=== PATIENT | female | born 1975 | race African-American/Black ===

== ENCOUNTER 2020-11-08 14:17 | Outpatient (REF) | payer MEDICAID, SELFPAY ==
--- NOTE | ~2020-11-08 | MM_ITS ---
EXAMINATION: MM SCREENING DIGITAL BREAST TOMOSYNTHESIS, BILATERAL CLINICAL INFORMATION: Screening. Asymptomatic. The lifetime risk of breast cancer based on the Tyrer-Cuzick Model is 5%. COMPARISON: Mammography: 11/03/2019, 10/13/2018, 05/24/2017 TECHNIQUE: Digital breast tomosynthesis is performed in both the craniocaudal and mediolateral oblique views along with computer-aided detection (CAD). Synthesized 2D images are generated from the tomosynthesis. FINDINGS: There are scattered areas of fibroglandular density (ACR BI-RADS breast composition Category b). There are no significant masses, abnormal calcifications, or other abnormalities. Parenchymal pattern is similar to prior studies. MM/MM tomosynthesis screening BI IMPRESSION: No mammographic evidence of malignancy. ASSESSMENT: BI-RADS 1: Negative RECOMMENDATION: Routine annual mammography screening. This patient's information was entered into a reminder system with a target due date for their next mammogram.
== END 2020-11-08 14:18 | disposition home or self-care (01) ==
LOC: HO.MAMMO 14:17
PROVIDERS: PCP Internal Medicine; Visit Provider Internal Medicine
DX: Z12.31 Encounter for screening mammogram for malignant neoplasm of breast (principal)
CPT/HCPCS: 77063; 77067

== ENCOUNTER 2021-11-30 12:51 | Outpatient (REF) | payer MEDICAID, SELFPAY ==
--- NOTE | ~2021-11-30 | MM_ITS ---
EXAMINATION: MM SCREENING DIGITAL BREAST TOMOSYNTHESIS, BILATERAL CLINICAL INFORMATION: Screening. Asymptomatic. The lifetime risk of breast cancer based on the Tyrer-Cuzick Model is 5%. COMPARISON: Mammography: 11/08/2020, 11/03/2019, 10/13/2018 TECHNIQUE: Digital breast tomosynthesis is performed in both the craniocaudal and mediolateral oblique views along with computer-aided detection (CAD). Synthesized 2D images are generated from the tomosynthesis. FINDINGS: There are scattered areas of fibroglandular density (ACR BI-RADS breast composition Category b). There are no significant masses, abnormal calcifications, or other abnormalities. Breast tissue composition borders on predominantly fatty. There are 2 small incidental intramammary nodes again seen posterior upper outer right breast. The axilla and skin contours are unremarkable. MM/MM tomosynthesis screening BI IMPRESSION: No mammographic evidence of malignancy. ASSESSMENT: BI-RADS 2: Benign RECOMMENDATION: Routine annual mammography screening. This patient's information was entered into a reminder system with a target due date for their next mammogram.
== END 2021-11-30 12:52 | disposition home or self-care (01) ==
LOC: HO.MAMMO 12:51
PROVIDERS: PCP Emergency Medicine; Visit Provider Internal Medicine
DX: Z12.31 Encounter for screening mammogram for malignant neoplasm of breast (principal)
CPT/HCPCS: 77063; 77067

== ENCOUNTER 2022-12-25 09:12 | Outpatient (REF) | payer MEDICAID, SELFPAY ==
--- NOTE | ~2022-12-25 | MM_ITS ---
EXAMINATION: MM SCREENING DIGITAL BREAST TOMOSYNTHESIS, BILATERAL CLINICAL INFORMATION: Screening. Asymptomatic. The lifetime risk of breast cancer based on the Tyrer-Cuzick Model is 7%. COMPARISON: Mammography: 11/30/2021, 11/08/2020, 11/03/2019 TECHNIQUE: Digital breast tomosynthesis is performed in both the craniocaudal and mediolateral oblique views along with computer-aided detection (CAD). Synthesized 2D images are generated from the tomosynthesis. FINDINGS: There are scattered areas of fibroglandular density (ACR BI-RADS breast composition Category b). There are no significant masses, abnormal calcifications, or other abnormalities. No architectural abnormality or developing density or significant change from prior studies. The axilla and skin contours are unremarkable. MM/MM tomosynthesis screening BI IMPRESSION: No mammographic evidence of malignancy. ASSESSMENT: BI-RADS 1: Negative RECOMMENDATION: Routine annual mammography screening. This patient's information was entered into a reminder system with a target due date for their next mammogram.
== END 2022-12-25 09:13 | disposition home or self-care (01) ==
LOC: HO.MAMMO 09:12
PROVIDERS: Visit Provider Internal Medicine
DX: Z12.31 Encounter for screening mammogram for malignant neoplasm of breast (principal)
CPT/HCPCS: 77063; 77067

== ENCOUNTER 2023-04-16 10:20 | Outpatient (REF) | payer MEDICAID, SELFPAY ==
[2023-04-16 11:18] LABS: MANUAL DIFF FLAG NO
[2023-04-16 11:30] LABS: Basophils Percent Auto 0.6 % (0-2); Eosinophils Absolute Auto 0.4 X10*3/uL (0.0-0.4); Eosinophils Percent Auto 6.6 % (0-4); Hemoglobin 13.2 g/dl (12.0-16.0); Imm Gran Abs Auto 0.03 X10*3/uL (0.00-0.03); Imm Gran Pct Auto 0.6 % (0.0-0.4); Lymphocytes Absolute Auto 2.3 X10*3/uL (1.2-4.9); Lymphocytes Percent Auto 43.1 % (20-40); Mean Corpuscular HGB Conc 32.2 g/dl (31.0-35.0); Mean Corpuscular Hemoglobin 28.3 pg (27.0-33.0); Mean Corpuscular Volume 87.8 fL (80.0-98.0); Mean Platelet Volume 9.8 fL (9.4-12.3); Monocytes Absolute Auto 0.4 X10*3/uL (0.1-1.2); Monocytes Percent Auto 6.6 % (2-11); Neutrophils Absolute Auto 2.3 x10*3/uL (2.0-8.3); Neutrophils Percent Auto 42.5 % (45-73); Platelet Count 191 X10*3/uL (160-400); Red Blood Count 4.67 X10*6/uL (4.20-5.50); Red Cell Distribution Width 12.4 % (11.0-16.0); White Blood Count 5.3 X10*3/uL (4.8-10.8)
[2023-04-16 11:51] LABS: Estimated Average Glucose 103 mg/dL; Hemoglobin A1c % 5.2 %
[2023-04-16 12:45] LABS: HBS Num1 23.74 mIU/mL (0-7.99); HBc Num1 0.12 S/CO (0.00-0.79); HBsAGNum1 0.45 S/CO (0.00-0.99); HIV AB/AG Nonreactive (Nonreactive); HIV Num 1 0.05 S/CO (0.00-0.99); Hepatitis B Core Antibody Nonreactive (Nonreactive); Hepatitis B Surface Antigen Negative (Negative); ~Hepatitis B Surface Antibody REACTIVE (Nonreactive)
[2023-04-16 12:46] LABS: ~HepC Num1 0.06 S/CO (0.00-0.79); ~Hepatitis C Antibody Nonreactive (Nonreactive)
[2023-04-16 12:54] LABS: Alanine Aminotransferase 13 U/L (0-31); Albumin Level 4.2 g/dL (3.5-5.0); Alkaline Phosphatase 50 U/L (39-117); Anion Gap 15 (12-20); Aspartate Amino Transferase 15 U/L (5-31); Bilirubin Total 0.5 mg/dL (0.0-1.0); Blood Urea Nitrogen 16 mg/dL (9-16); Calcium 9.6 mg/dL (8.4-10.2); Carbon Dioxide 25 mmol/L (22-29); Chloride 107 mmol/L (96-108); Cholesterol 191 mg/dL; Estimated Glomerular Filt Rate > 60; Free T4 (Free Thyroxine) 0.92 ng/dL (0.71-1.85); Glucose Random 87 mg/dL (60-115); HDL Cholesterol 42 mg/dL; LDL Cholesterol Calculated 128 mg/dl; Potassium 4.1 mmol/L (3.3-5.1); Sodium 143 mmol/L (135-145); T4 Thyroxine 8.2 ug/dL (4.5-12.0); Thyroid Stimulating Hormone 3.31 uIU/mL (0.32-4.0); Total Protein 7.6 g/dL (6.5-8.0); Triglycerides 107 mg/dL; Vitamin D 25-OH Total 32.2 ng/mL (>30)
[2023-04-16 13:13] LABS: Folate 14.9 ng/mL (> or = 4.0); Vitamin B12 1113 pg/mL (200-900)
[2023-04-16 15:15] LABS: CT PCR NOT DETECTED (Not Detect.); NG PCR NOT DETECTED (Not Detect.)
[2023-04-17 04:23] LABS: Syphilis Screen Nonreactive (Nonreactive)
== END 2023-04-16 10:21 | disposition home or self-care (01) ==
LOC: HO.HHCL 10:20
PROVIDERS: Visit Provider Student in an Organized Health Care Education/Training Program
DX: Z00.00 Encounter for general adult medical examination without abnormal findings (principal); Z11.4 Encounter for screening for human immunodeficiency virus [HIV]
CPT/HCPCS: 0353U; 80053; 80061; 82306; 82607; 82746; 83036; 84436; 84439; 84443; 85025; 86704; 86706; 86780; 86803; 87340; 87389

== ENCOUNTER 2023-06-26 19:25 | Outpatient (REF) | payer MEDICAID, SELFPAY ==
[2023-06-28 19:59] LABS: HPV mRNA E6/E7 rflx Not Detected (Not Detected)
== END 2023-06-26 19:26 | disposition home or self-care (01) ==
LOC: HO.HHCLNP 19:25
PROVIDERS: Visit Provider Advanced Practice Midwife
DX: Z12.4 Encounter for screening for malignant neoplasm of cervix (principal); Z11.51 Encounter for screening for human papillomavirus (HPV)
CPT/HCPCS: 87624; 88142

== ENCOUNTER 2024-02-07 15:51 | Outpatient (REF) | payer MEDICAID, SELFPAY ==
[2024-02-07 18:09] LABS: MANUAL DIFF FLAG NO
[2024-02-07 18:19] LABS: Basophils Absolute Auto 0.1 X10*3/uL (0.0-0.2); Basophils Percent Auto 0.7 % (0-2); Eosinophils Absolute Auto 0.4 X10*3/uL (0.0-0.4); Eosinophils Percent Auto 3.9 % (0-4); Hemoglobin 13.4 g/dl (12.0-16.0); Imm Gran Abs Auto 0.03 X10*3/uL (0.00-0.03); Imm Gran Pct Auto 0.3 % (0.0-0.4); Lymphocytes Absolute Auto 3.5 X10*3/uL (1.2-4.9); Lymphocytes Percent Auto 38.8 % (20-40); Mean Corpuscular HGB Conc 32.7 g/dl (31.0-35.0); Mean Corpuscular Hemoglobin 29.2 pg (27.0-33.0); Mean Corpuscular Volume 89.3 fL (80.0-98.0); Mean Platelet Volume 10.1 fL (9.4-12.3); Monocytes Absolute Auto 0.6 X10*3/uL (0.1-1.2); Monocytes Percent Auto 7.1 % (2-11); Neutrophils Absolute Auto 4.5 x10*3/uL (2.0-8.3); Neutrophils Percent Auto 49.2 % (45-73); Platelet Count 271 X10*3/uL (160-400); Red Blood Count 4.59 X10*6/uL (4.20-5.50); Red Cell Distribution Width 12.9 % (11.0-16.0)
[2024-02-07 18:37] LABS: Rheumatoid Factor < 13.0 IU/mL (<15.0)
[2024-02-07 18:38] LABS: C Reactive Protein < 0.10 mg/dL (< or = 0.50)
[2024-02-07 18:55] LABS: Free T4 (Free Thyroxine) 0.92 ng/dL (0.71-1.85); Thyroid Stimulating Hormone 5.05 uIU/mL (0.32-4.0)
[2024-02-07 19:03] LABS: Folate 11.4 ng/mL (> or = 4.0); Vitamin B12 710 pg/mL (200-900)
[2024-02-07 19:30] LABS: Erythrocyte Sedimentation Rate 9 MM/HR (0-20)
[2024-02-08 04:39] LABS: Syphilis Screen Nonreactive (Nonreactive)
[2024-02-10 14:22] LABS: Anti Nuclear Antibody Screen NEGATIVE (NEGATIVE)
[2024-02-11 18:42] LABS: Cyclic Citrullinated Peptide <16 UNITS
== END 2024-02-07 15:52 | disposition home or self-care (01) ==
LOC: HO.HHCL 15:51
PROVIDERS: Visit Provider Student in an Organized Health Care Education/Training Program
DX: R41.3 Other amnesia (principal); M25.50 Pain in unspecified joint
CPT/HCPCS: 36415; 82607; 82746; 84439; 84443; 85025; 85652; 86038; 86140; 86200; 86431; 86780

== ENCOUNTER 2024-02-26 15:26 | Outpatient (REF) | payer MEDICAID, SELFPAY | END 2024-02-26 15:27 | disposition home or self-care (01) | LOC: HO.MAMMO 15:26 | PROVIDERS: PCP Student in an Organized Health Care Education/Training Program; Visit Provider Student in an Organized Health Care Education/Training Program | DX: Z12.31 Encounter for screening mammogram for malignant neoplasm of breast (principal) | CPT/HCPCS: 77063; 77067 ==

== ENCOUNTER → 2024-02-26 15:45 | Outpatient (BNV) | payer MEDICAID, SELFPAY | PROVIDERS: PCP Student in an Organized Health Care Education/Training Program; Visit Provider Radiology Diagnostic Radiology | DX: Z12.31 Encounter for screening mammogram for malignant neoplasm of breast (principal) | CPT/HCPCS: 77063; 77067 ==

== ENCOUNTER 2025-01-20 15:10 | Outpatient (REF) | payer MEDICAID, SELFPAY ==
--- OUTSIDE RECORDS SUMMARY | 2025-01-20 16:08 | XMS_ITS | Encounter Summary ---
Author Organization [employer] Address [address] [place] [address] [place] [address] Care Team Providers Care Regulatory Submissions Associate Name Role Phone Molly Narayan MD Primary Care Pro vider Reason for Visit * Reason Comments Med Refill Encounter Details Date Type Department Care Team (Late st Contact Info) Description 09/21/2023 Refill [facility] [address] [place], [place] [phone] Molly Narayan MD [address] [place] [address] Social History Tobacco Use Types Packs/Day Years Used Date Smoking Tobacco: Never Passive Smoke Exposure: Never Smokeless Tobacco: Never Alcohol Use Standard Drinks/Week Comments Not Currently 0 (1 standard drink = 0.6 oz pur e alcohol) Depression Answer Date Recorded Patient Health Questionnaire-9 Score 12 04/10/2023 Housing Stability Answer Date Recorded What is your housing situation today? I have amybeatris tirado 07/01/[address] you li ve. Do you have problems with any of the following? None of the above 07/01/2023 Food Insecurity Answer Date Recorded Within the past 12 months, y ou worried that your food would run out before you got money to buy more: Never True 07/01/2023 Within the past 12 months,th e food you bought just didn't last and you didn't have enough money to get more: Never True Transportation Answer Date Recorded In the past 12 months, has l ack of transportation kept you from medical appts, meetings, work or from getting things needed for daily living? Yes, it has kept me from medical appointments or getting medications. 06/25/2023 Utilities Answer Date Recorded In the past 12 months, has t he electric, gas, oil or water company threatened to shut off services in your home? No 07/01/2023 Depression Answer Date Recorded Patient Health Questionnaire-2 Score 5 07/30/2023 Comments No Sex and Gender Information Value Date Recorded Sex Assigned at Female 07/16/2022 10:14 AM EDT Legal Sex Female 10:14 AM EDT Gender Identity Female 07/16/2022 10:14 AM EDT Sexual Orientation Straight 04/10/2023 12 :09 PM EDT documented as of this encounter Plan of Treatment Upcoming Encounters Date Type Department Care Team (Late st Contact Info) Description 03/25/2025 2:00 PM EDT Nurse Only [facility] [address] [place] [phone] 03/29/2025 1:00 PM EDT Office Visit [facility] [address] [place] [phone] Molly Narayan MD [address] [place] [phone] documented as of this encounter Visit Diagnoses Not on filedocumented in this encounter Additional Health Concerns Assessment Noted Time PHQ-9 Depression Total Score: 12 023 11:43 AM EDT documented as of this encounter Care Teams Regulatory Submissions Associate Relationship Specialty Start Date End Date Molly Narayan MD [address] [place] [phone] PCP - General Internal Medicine 01/02/23 documented as of this encounter
--- OUTSIDE RECORDS SUMMARY | 2025-01-20 16:08 | XMS_ITS | Clinical Summary ---
Author Organization [facility] Address [address] [place] [address] Care Team Providers Care Strategy Lead Name Role Phone Unavailable Primary Care Provider Unavailabl e Source Comments PLEASE NOTE, if this patient is a minor, it may be UNLAWFUL to discuss sensitive information that is contained in these records (such as FAMILY PLANNING, MENTAL HEALTH or SUBSTANCE ABUSE) with the minor patient's parent or other person without the patient's specific authorization.[facility] Medications FLUoxetine (PROZAC) 20 mg tablet Take 20 mg by mouth every morning Active DULoxetine (CYMBALTA) [address] capsule Take 20 mg by mouth once daily 07/13/2024 Active cloNIDine (CATAPRES) 0.1 mg tablet Take 0.1 mg by mouth nightly at bedtime Active hydrOXYzine HCL (ATARAX) 10 mg tablet Take 10 mg by mouth 3 (three) times daily as needed for anxiety Active levothyroxine 25 mcg tablet Take 25 mcg by mouth once daily 06/23/2024 Active Active Problems Problem Noted Date Diagnosed Date Atypical chest pain 07/04/2024 Helicobacter pylori (H. pylori) infection 2023 Overview (08/12/2024): Urea breath test on 01/20/24 at [facility] is POS. Rx initially with tetracycline + Flagyl (GI office)--> Diarrhea/vulvovaginitis on 01/27/24, then started on Amox/clarithromycin Memory loss 11/12/2023 Moderate episode of recurren t major depressive disorder ([facility]) 07/26/2023 Assessment & Plan (08/12/2024 7:19 AM EST): Pt unsure if she needs refills. PCP appt- 09/04/24? Pt declines f/u visit for next week, stating she prefers seeing a provider in person [significant communication barriers- cannot connect via video, welder tool and die, telephone issues]. Pt has a therapist, will f/u. Recommend neurology referral to assess pt c/o short term memory impairment. Venous insufficiency of both lower extremities 1 Lower extremity pain 04/10/2023 Liver cyst 04/10/2023 Herpes labialis 04/10/2023 Chronic lower back pain 04/10/2023 Hypothyroidism 12/28/2022 Neuropathic pain 09/07/2022 Gastroesophageal reflux disease 09/17/2017 Panic attack 09/02/2014 Overview (08/12/2024): Panic attack Anxiety 02/03/2013 Overview (08/12/2024): Anxiety Assessment & Plan (08/12/2024 7:19 AM EST): No med changes- pt unsure what she is taking, could not provide information on why she is on prozac and cymbalta together- was this a cross taper? Social History Tobacco Use Types Packs/Day Years Used Date Smoking Tobacco: Never Smokeless Tobacco: Never Tobacco Cessation:Counseling Given: Not Answered Alcohol Use Standard Drinks/Week Comments Never 0 (1 standard drink = 0.6 oz pur e alcohol) Social Connections Answer Date Recorded Connectedness 0 07/13/2024 Financial Resource Strain Answer Date R ecorded Financial Resource Strain 0 2023 Stress Answer Date Recorded Stress 0 07/13/2024 Physical Activity Answer Date Recorded Physical Activity 0 07/13/2024 Food Insecurity Answer Date Recorded Food 0 07/13/2024 Transportation Needs Answer Date Record ed Transportation 0 07/13/2024 Housing Stability Answer Date Recorded Housing 0 07/13/2024 Safety and Environment Answer Date Arslan rded Safety 0 07/13/2024 Utilities Answer Date Recorded Utilities 0 07/13/2024 Employment Answer Date Recorded Stress 0 07/13/2024 Comments Unknown Sex and Gender Information Value Date Recorded Sex Assigned at Female 07/13/2024 7:14 AM PDT Legal Sex Female 7:14 AM PDT Gender Identity Female 07/13/2024 7:14 AM PDT Sexual Orientation Not on file Plan of Treatment Health Maintenance Due Date Last Done Comments Anxiety Screening 1973 Depression Monitoring 1973 HPV Screening 1973 Hepatitis C Screening 1973 Lipid Screening 1973 Pap + HPV 1973 TSH Monitoring 1973 HIV Screening 1988 Hypertension Screening (#1) 12/31/1991 Cervical Cancer Screening 1994 Pap Smear 1994 Breast Cancer Screening (Mammogram) 2013 CT Colonography 2018 Colonoscopy 2018 Colorectal Cancer Screening 2018 FIT/gFOBT 2018 Fecal DNA 2018 Flexible Sigmoidoscopy 2018 Imm-Zoster, Recombinant (1 of 2) 12/31/2023 Gce-ANRRY-34 ( season) 2024 04/10/2023, 07/19/2022, 02/10/2021 Imm-Influenza (#1) 2024 07/26/2023, 1 10/27/2013, 11/17/2009 Alcohol and Drug Screen 09/16/2024 Tobacco Screening 08/11/2025 08/11/2024 Diabetes Screening 04/16/2026 04/16/2023, 0 11/16/2021, 08/09/2020 Imm-DTaP/Tdap/Td (2 - Td or Tdap) 04/10/2033 023, 11/17/2009 Imm-Hepatitis B Completed 11/17/2009, 0503/2009, 12/22/2008 Cervical Ablation/Cold-Knife Conization Discontinued Cervical Cryotherapy Discontinued Colposcopy Discontinued Endometrial Biopsy Discontinued Excision/Leep Discontinued HPV Genotyping Discontinued Vaginal Pap Discontinued Vulvoscopy Discontinued Insurance [place] [facility] [place]
--- OUTSIDE RECORDS SUMMARY | 2025-01-20 16:08 | XMS_ITS | Encounter Summary ---
Author Organization [employer] Address [address] [place] [address] 7 [place] [address] Care Team Providers Care Fluorescent Lighting Model Maker Name Role Phone Hilton Al TRENT Primary Care Provider Unavail Molly Enrique MD Primary Care Pro vider Reason for Visit * Reason Comments Med Refill Encounter Details Date Type Department Care Team ([facility] Contact Info) Description 12/28/2022 Refill [facility] [address] [place] [address] [phone] Name, MD Enrico [address] [place] [phone] Subclinical hypothyroidism Social History Tobacco Use Types Packs/Day Years Used Date Smoking Tobacco: Never Passive Smoke Exposure: Never Smokeless Tobacco: Never Comments Unknown Sex and Gender Information Value Date Recorded Sex Assigned at Female 07/16/2022 10:14 AM EDT Legal Sex Female 10:14 AM EDT Gender Identity Female 07/16/2022 10:14 AM EDT Sexual Orientation Straight 04/10/2023 12 :09 PM EDT COVID-19 Exposure Response Date Recorded In the last 10 days, have yo u been in contact with someone who was confirmed or suspected to have Coronavirus/COVID-19? No / Unsure 12/28/2022 2:46 PM EDT documented as of this encounter Plan of Treatment Upcoming Encounters Date Type Department Care Team (Late Contact Info) Description 03/25/2025 2:00 PM EDT Nurse Only [facility] [address] [place] [address] [phone] 03/29/2025 1:00 PM EDT Office Visit [facility] [address] [place] [address] [phone] Molly Narayan MD [address] [place], [place] [phone] documented as of this encounter Visit Diagnoses Diagnosis Subclinical hypothyroidism Other specified acquired hypothyroidism documented in this encounter Care Teams Fluorescent Lighting Model Maker Relationship Specialty Start Date End Date Al Canela AGNP PCP - General Family Medicine 09/14/22 01/01/23 Molly Narayan MD [address] [place], [place] [phone] PCP - General Internal Medicine 01/02/23 documented as of this encounter
--- OUTSIDE RECORDS SUMMARY | 2025-01-20 16:08 | XMS_ITS | Encounter Summary ---
Author Organization [employer] Address [address] [facility] 7t [place] [address] Care Team Providers Care Computer Artist Name Role Phone Al Canela Primary Care Provider Unavail able Molly Narayan MD Primary Care Pro vider Reason for Visit * Reason Onset Date Comments triage 10/05/2022 Encounter Details Date Type Department Care Team ([facility] st Contact Info) Description 10/05/2022 Telephone [facility] [address] [place], [place] [phone] Al Canela AGNP triage Social History Tobacco Use Types Packs/Day Years Used Date Smoking Tobacco: Never Assessed Comments Unknown Sex and Gender Information Value Date Recorded Sex Assigned at Female 07/16/2022 10:14 AM EDT Legal Sex Female 10:14 AM EDT Gender Identity Female 07/16/2022 10:14 AM EDT Sexual Orientation Straight 04/10/2023 12 :09 PM EDT documented as of this encounter Miscellaneous Notes * Telephone Encounter - Barbra Contreras RN - 10/05/2022 4:58 PM EST Attempted to contact Pt with [employer] Cadd Operator ID [id number], left message to call [facility] * Telephone Encounter - Ibis Pederson Hansen - 10/05/2022 4:29 PM EST Symptoms: Body Aches, Neck Pain - Not From Injury Outcome: Schedule an urgent appointment (within 4 hours) or talk to a nurse or provider soon Reason: Getting worse Tc from pt requesting an appt, pt states while she was sleeping she felt a very strong pain throughout her whole body, she also states pain come and goes and her body start to crack. Pt states she drank some meds. The caller accepted this outcome Please contact pt at [phone] Maldivian Speaker. documented in this encounter Plan of Treatment Upcoming Encounters Date Type Department Care Team (Late st Contact Info) Description 03/25/2025 2:00 PM EDT Nurse Only [address] [address] 03/29/2025 1:00 PM EDT Office Visit [address] [phone] Molly Narayan MD [address] [place] [phone] documented as of this encounter Visit Diagnoses Not on filedocumented in this encounter Care Teams Computer Artist Relationship Specialty Start Date End Date Al Canela AGNP PCP - General Family Medicine 09/14/22 01/01/23 Molly Narayan MD [address] [place] [address] [phone] PCP - General Internal Medicine 01/02/23 documented as of this encounter
--- OUTSIDE RECORDS SUMMARY | 2025-01-20 16:08 | XMS_ITS | Encounter Summary ---
Author Organization [employer] Address [address] [place] [address] [place] [address] Care Team Providers Care Clocksmith Name Role Phone Molly Narayan MD Primary Care Pro vider Reason for Visit * Reason Comments Med Refill Encounter Details Date Type Department Care Team (Late st Contact Info) Description 09/01/2023 Refill [facility] [address] [place], [place] [phone] Molly Narayan MD [address] [place] [address] Social History Tobacco Use Types Packs/Day Years [...] Description 03/25/2025 2:00 PM EDT Nurse Only [facility] [address] [place] [phone] 03/29/2025 1:00 PM EDT Office Visit [facility] [address] [place] [phone] Molly Narayan MD [address] [place] [phone] documented as of this encounter Visit Diagnoses Not on filedocumented in this encounter Additional Health Concerns Assessment Noted Time PHQ-9 Depression Total Score: 12 023 11:43 AM EDT documented as of this encounter Care Teams Clocksmith Relationship Specialty Start Date End Date Molly Narayan MD [address] [place] [phone] PCP - General Internal Medicine 01/02/23 documented as of this encounter
--- OUTSIDE RECORDS SUMMARY | 2025-01-20 16:08 | XMS_ITS | Encounter Summary ---
Author Organization [employer] Address [address] [place] [address] [place] [address] Care Team Providers Care Gasoline Dragline Operator Name Role Phone Molly Narayan MD Primary Care Pro vider Reason for Visit * Reason Comments Med Refill Encounter Details Date Type Department Care Team ([facility] st Contact Info) Description 07/03/2023 Refill [facility] [address] [place], [place] [phone] Molly Narayan MD [address] [place] [address] Social History Tobacco Use Types Packs/Day Years [...] Answer Date Recorded Patient Health Questionnaire-2 Score 2 04/10/2023 Comments No Sex and Gender Information Value [...] Description 03/25/2025 2:00 PM EDT Nurse Only [facility] [address] [place] [phone] 03/29/2025 1:00 PM EDT Office Visit [facility] [address] [place] [phone] Molly Narayan MD [address] [place] [address] documented as of this encounter Visit Diagnoses Not on filedocumented in this encounter Additional Health Concerns Assessment Noted Time PHQ-9 Depression Total Score: 12 023 11:43 AM EDT documented as of this encounter Care Teams Gasoline Dragline Operator Relationship Specialty Start Date End Date Molly Narayan MD [address] [place] [phone] PCP - General Internal Medicine 01/02/23 documented as of this encounter
--- OUTSIDE RECORDS SUMMARY | 2025-01-20 16:08 | XMS_ITS | Encounter Summary ---
Author Organization [employer] Address [address] [facility] 7t [place] [address] Care Team Providers Care Manager Legal Name Role Phone Molly Narayan MD Primary Care Pro vider Encounter Details Date Type Department Care Team (Latest Contact Info) Description 01/19/2025 Travel Social History Tobacco Use Types Packs/Day Years Used Date Smoking Tobacco: Never Passive Smoke Exposure: Never Smokeless Tobacco: Never Alcohol Use Standard Drinks/Week Comments Not Currently 0 (1 standard drink = 0.6 oz pur e alcohol) Depression Answer Date Recorded Patient Health Questionnaire-9 Score 16 07/03/2024 Patient Health Questionnaire-9 Score 16 07/03/2024 Last PHQ-9: Questionnaire Data Not on file 1 Housing Stability Answer Date Recorded What is your housing situation today? I have amy tirado 07/03/[address] you li ve. Do you have problems with any of the following? Pests such as bugs, ants, or mice;Mold 07/03/2024 Food Insecurity Answer Date Recorded Within the past 12 months, y ou worried that your food would run out before you got money to buy more: Sometimes True 2023 Within the past 12 months,th e food you bought just didn't last and you didn't have enough money to get more: Sometimes True 07/03/2024 Transportation Answer Date Recorded In the past 12 months, has l ack of transportation kept you from medical appts, meetings, work or from getting things needed for daily living? No 06/19/2024 Utilities Answer Date Recorded In the past 12 months, has t he electric, gas, oil or water company threatened to shut off services in your home? No 06/19/2024 Depression Answer Date Recorded Patient Health Questionnaire-2 Score 2 07/03/2024 Internet Access Answer Date Recorded Internet Access Q1 Yes 06/19/2024 Internet Access Q2 Not on file 06/19/2024 Comments No Sex and Gender Information Value [...] Description 03/25/2025 2:00 PM EDT Nurse Only [facility] [address] [place] [phone] 03/29/2025 1:00 PM EDT Office Visit [facility] [address] [place] [phone] Molly Narayan MD [address] [place] [address] documented as of this encounter Visit Diagnoses Not on filedocumented in this encounter Additional Health Concerns Assessment Noted Time PHQ-9 Depression Total Score: 16 024 11:50 AM EDT documented as of this encounter Care Teams Manager Legal Relationship Specialty Start Date End Date Mloly Narayan MD [address] [place] [phone] PCP - General Internal Medicine 01/02/23 documented as of this encounter
--- OUTSIDE RECORDS SUMMARY | 2025-01-20 16:08 | XMS_ITS | Encounter Summary ---
Author Organization [employer] Address [address] [place] [address] Care Team Providers Care Lieutenant Ballistics Name Role Phone Molly Narayan MD Primary Care Pro vider Reason for Visit * Reason Onset Date Comments chartprep 01/15/2025 Encounter Details Date Type Department Care Team ([facility] st Contact Info) Description 01/15/2025 Telephone [facility] [address] [place], [place] [phone] Molly Narayan MD [address] [place] [address] chartprep Social History Tobacco Use Types Packs/Day Years [...] housing situation today? I have amybeatris tirado 07/03/[address] you [...] encounter Miscellaneous Notes * Telephone Encounter - Dannielle Alcaraz MA - 01/15/2025 9:31 AM EDT ..Chart Prep Labs: not done Images: not applicable Vaccines due: Covid Due, Hep A Due, Flu Due, and Shingles in pharmacy Due Referrals: Not Applicable Screenings: Colonoscopy Overdue care gaps: Sbirt, Disability , and Oral Health documented in this encounter Plan of Treatment Upcoming Encounters Date Type Department Care Team (Late st Contact Info) Description 03/25/2025 2:00 PM EDT Nurse Only [facility] [address] [place] [phone] 03/29/2025 1:00 PM EDT Office Visit [facility] [address] [place] [phone] Molly Narayan MD [address] [place] [phone] documented as of this encounter Visit Diagnoses Not on filedocumented in this encounter Additional Health Concerns Assessment Noted Time PHQ-9 Depression Total Score: 16 024 11:50 AM EDT documented as of this encounter Care Teams Lieutenant Ballistics Relationship Specialty Start Date End Date Molly Narayan MD [address] [place] [phone] PCP - General Internal Medicine 01/02/23 documented as of this encounter
--- OUTSIDE RECORDS SUMMARY | 2025-01-20 16:08 | XMS_ITS | Encounter Summary ---
Author Organization [employer] Address [address] [place] [address] [place] [address] Care Team Providers Care Hot Wound Spring Production Supervisor Name Role Phone Molly Narayan MD Primary Care Pro vider Reason for Visit * Reason Comments Med Refill Encounter Details Date Type Department Care Team (Late st Contact Info) Description 09/23/2023 Refill [facility] [address] [place], [place] [phone] Molly Narayan MD [address] [place] [phone] Social History Tobacco Use Types Packs/Day Years [...] Description 03/25/2025 2:00 PM EDT Nurse Only [facility] [address] [place] [id number] 03/29/2025 1:00 PM EDT Office Visit [facility] [address] [place] [phone] Molly Narayan MD [address] [place] [phone] documented as of this encounter Visit Diagnoses Not on filedocumented in this encounter Additional Health Concerns Assessment Noted Time PHQ-9 Depression Total Score: 12 023 11:43 AM EDT documented as of this encounter Care Teams Hot Wound Spring Production Supervisor Relationship Specialty Start Date End Date Molly Narayan MD [address] [place] [id number] PCP - General Internal Medicine 01/02/23 documented as of this encounter
--- OUTSIDE RECORDS SUMMARY | 2025-01-20 16:08 | XMS_ITS | Encounter Summary ---
Author Organization [employer] Address [address] [facility] [address] [place] [address] Care Team Providers Care Compliance Lead Name Role Phone Molly Narayan MD Primary Care Pro vider Reason for Visit * Reason Onset Date Comments DME waiting for signature 07/06/2024 Encounter Details Date Type Department Care Team ([facility] st Contact Info) Description 07/06/2024 Telephone [facility] [address] [place], [place] [phone] Alea Jarquin MA DME waiting for signature Social History Tobacco Use Types Packs/Day Years [...] encounter Miscellaneous Notes * Telephone Encounter - Briseida Mcghee - 01/20/2025 3:18 PM EDT RX for Brace generated and sent to PCP for signature via [employer]. Once signed, will fax to POS andsent to scan. * Telephone Encounter - Summer Hernandez RN - 01/19/2025 2:13 PM EDT Spoke to PCP in office who stated that the pt doesn't yet have right wrist brace even though DME order placed 07/06/2024. Per note below, was sent via [employer]. triage assistant checked on status of wrist brace online however unable to find record. Will ask DME specialists for assistance infinding record or re submitting as appropriate. * Telephone Encounter - Alea Jarquin MA - 07/06/2024 12:55 PM EDT DME -Glove Examiner made order in [employer] and awaiting signature by . * Telephone Encounter - Alea Jarquin MA - 07/06/2024 12:55 PM EDT ----- Message from Nurse Marcelle Gomez sent at 07/03/2024 11:24 AM EDT ----- ----- Message ----- From: Molly Yost MD Sent: 07/03/2024 11:22 AM EDT To: [facility] Team Nurses Please can you help pt getting wrist brace of right hand for CTS thanks documented in this encounter Plan of Treatment Upcoming Encounters Date Type Department Care Team (Late st Contact Info) Description 03/25/2025 2:00 PM EDT Nurse Only [address] [phone] 03/29/2025 1:00 PM EDT Office Visit [address] [phone] Molly Narayan MD [address] [place] [phone] documented as of this encounter Visit Diagnoses Not on filedocumented in this encounter Additional Health Concerns Assessment Noted Time PHQ-9 Depression Total Score: 16 024 11:50 AM EDT documented as of this encounter Care Teams Compliance Lead Relationship Specialty Start Date End Date Molly Narayan MD [address] [place] [id number] PCP - General Internal Medicine 01/02/23 documented as of this encounter
--- OUTSIDE RECORDS SUMMARY | 2025-01-20 16:08 | XMS_ITS | Clinical Summary ---
Author Organization [employer] Address [address] [facility] [address] [place] [address] Care Team Providers Care Food Or Baggage Handling Rampman Name Role Phone Molly Narayan MD Primary Care Pro vider Allergies No known active allergies Medications * This document contains information received from the source organization and may not represent a complete record from that organization. hydrOXYzine HCl (Atarax) 10 MG tablet TAKE 1 TABLET BY MOUTH EVERY 8 HOURS IF NEEDED FOR ITCHING OR ANXIETY. 30 tablet 3 02/11/20 24 Active cloNIDine (Catapres) 0.1 MG tabletIndications: Anxiety TAKE 1 TABLET BY MOUTH EVERYDAY AT BEDTIME 90 tablet 03/27/20 24 Active valACYclovir (Valtrex) 500 MG tablet TAKE 1 TABLET BY MOUTH 2 TIMES DAILY FOR 3 DAYS 6 tablet 1 05/20/20 24 Active levothyroxine (Synthroid) 25 MCG tabletIndications: Subclinical hypothyroidism Take 1 tablet (25 mcg) by mouth before breakfast. 90 tablet 1 06/23/20 24 025 Active DULoxetine (Cymbalta) [address] capsule TAKE 1 CAPSULE BY MOUTH EVERY DAY DO NOT CRUSH OR CHEW 30 capsule 1 10/12/19 25 Active FLUoxetine (PROzac) 20 MG tablet TAKE 1 TABLET BY MOUTH EVERY DAY IN THE MORNING 90 tablet 10/26/19 25 Active saccharomyces boulardii (Florastor) 250 MG capsule Take 250 mg by mouth 2 times daily. 025 Discontinu ed(Other) famotidine (Pepcid) 20 MG tablet TAKE 1 TABLET BY MOUTH TWICE A DAY 180 tablet 07/30/20 24 025 Discontinu ed(Other) zoster vaccine-recombinan t adjuvanted (Shingrix) 50 MCG/0.5ML vaccine Inject 0.5 mL (50 mcg) into the muscle 1 (one) time for 1 dose. To start series 0.5 mL 01/20/20 25 025 Active Problems Problem Noted Date Diagnosed Date Swallowing problem 01/19/2025 Facial swelling 01/19/2025 Atypical chest pain 07/04/2024 Helicobacter pylori (H. pylori) infection 2023 Overview (01/27/2024): Urea breath test on 01/20/24 at [facility] is POS. Rx initially with tetracycline + Flagyl (GI office)--> Diarrhea/vulvovaginitis on 01/27/24, then started on Amox/clarithromycin Memory loss 11/12/2023 CTS (carpal tunnel syndrome) 11/12/2023 Moderate episode of recurrent major depressive d isorder 07/26/2023 Assessment & Plan (07/30/2023 3:20 PM EST): Patient with symptoms of anxiety and depression. Reason for visit was to assess symptoms, provide intervention and offer referral. History of depression, family problems and sense of isolation are exacerbating symptoms. No risk for SI, nor self-harm. Provided psychoeducation around anxiety and ways to control symptoms by practicing mechanisms and self-care. Recommended to continue with services with [facility] at [facility] for individual therapy. Discussed adding patient to wait list within the health center. At this time Cindy Lynn meets criteria for Visit Diagnoses: Problem List Items Addressed This Visit Other Anxiety Moderate episode of recurrent major depressive disorder (CMS/HCC) Family problems Patient ready to address current needs Yes Strengths include readiness to take control and engage in services PLAN: 1. Follow up with [facility]: Recommended for follow-up: as needed 2. Patient goal is to maintain a stable mental health and practice self-care 3. Behavioral Recommendations a. Continue to attend individual therapy sessions with BHN b. Utilize coping mechanisms to decrease symptoms c. Be added to wait list for psychopharmacology at [facility] Family problems 07/26/2023 Assessment & Plan (07/30/2023 3:20 PM EST): Patient with symptoms of anxiety and depression. Reason for visit was to assess symptoms, provide intervention and offer referral. History of depression, family problems and sense of isolation are exacerbating symptoms. No risk for SI, nor self-harm. Provided psychoeducation around anxiety and ways to control symptoms by practicing mechanisms and self-care. Recommended to continue with services with [facility]N at [facility] for individual therapy. Discussed adding patient to wait list within the health center. At this time Cindy Lynn meets criteria for Visit Diagnoses: Problem List Items Addressed This Visit Other Anxiety Moderate episode of recurrent major depressive disorder (CMS/HCC) Family problems Patient ready to address current needs Yes Strengths include readiness to take control and engage in services PLAN: 1. Follow up with [facility]: Recommended for follow-up: as needed 2. Patient goal is to maintain a stable mental health and practice self-care 3. Behavioral Recommendations a. Continue to attend individual therapy sessions with BHN b. Utilize coping mechanisms to decrease symptoms c. Be added to wait list for psychopharmacology at [facility] Venous insufficiency of both lower extremities 1 Health care maintenance 04/10/2023 Assessment & Plan (05/08/2023 8:29 PM EDT): -Menopause: 43 y of age -pap smear:> 3 y ago reported to be neg-- not able to get records requested - referred to repeat test here today -MM: 12/2022 : BIRADS 1 -colonoscopy:never -referred Already --requested to Govind Esteban To check status of referral -vaccines: s/p hep Bx3-immune, covid [id number] x1, tdap 2022 -decrease vision referred to ophthalmology already-pd to get apt -noted to be forgetful -will eval w MOCA test at next apt in 6 weeks ------ -03/2023 Vit B 12 elevated at 1113-states takes sporadic vit B12 -explained no need to take ------ -CT chest angiography 03/2022: No pulmonary emboli. No active pulmonary disease. -echocardiogram 2016: EF 60%,normal -cardiac stress test 2015: Indeterminate test Assessment & Plan (04/10/2023 7:24 PM EDT): -Menopause: 43 y of age -pap smear:> 3 y ago reported to be neg-- ---- requested record to Govind Esteban -MM: 12/2022 : BIRADS 1 -colonoscopy:never -referred today -vaccines: s/p hep Bx3, covid [id number]-[id number] today, tdap today -labs x annual exam will RTC in fasting -pt agreed to have STI testing including HIV to have for baseline -pt reports weight loss but not significant -will do labs x annual exam and will monitor weight at next apt -decrease vision referred today to opthalmology ------ -CT chest angiography 03/2022: No pulmonary emboli. No active pulmonary disease. -echocardiogram 2016: EF 60%,normal -cardiac stress test 2014: Indeterminate test Liver cyst 04/10/2023 Assessment & Plan (05/08/2023 8:23 PM EDT): -CT Abdomen & Pelvis WO Cont - 10/02/20: No acute intraabdominal or pelvic pathology on this noncontrast study. Patchy subpleural airspace opacities in the visualized lungs as described. In the appropriate clinical setting, the possibility of COVID-19 pneumonia cannot be excluded. -from previous US report and in CTA chest as well noted liver cyst -repeat Abd US -to monitor cyst and to eval on and off LUQ discomfort ---already done per pt - ---- requested reporrt to Govnid Esteban -will f result w pt at her next apt Assessment & Plan (04/10/2023 7:19 PM EDT): -CT Abdomen & Pelvis WO Cont - 10/02/20: No acute intraabdominal or pelvic pathology on this noncontrast study. Patchy subpleural airspace opacities in the visualized lungs as described. In the appropriate clinical setting, the possibility of COVID-19 pneumonia cannot be excluded. -from previous US report and in CTA chest as well noted liver cyst -repeat Abd US -referred today to monitor and to eval on and off LUQ discomfort Herpes labialis 04/10/2023 Assessment & Plan (04/10/2023 7:20 PM EDT): Lesion likely labial herpes ,reports hx of this lesions in the past Started 1 day ago -px valacyclovir 2 gr BID x 1 day Chronic lower back pain 04/10/2023 Assessment & Plan (05/08/2023 8:27 PM EDT): Paraspinal point tenderness in lower back at last apt -referred to PT -states got apt but missed -pt will call to reschedule -will monitor if no improvement w tx will consider imaging -tylenol prn Assessment & Plan (04/10/2023 7:23 PM EDT): Paraspinal point tenderness in lower back -referred today to PT -will monitor if no improvement w tx will consider imaging -tylenol prn Lower extremity pain 04/10/2023 Assessment & Plan (05/08/2023 8:24 PM EDT): Pt with vague complaints ,reports pain over palpation of superficial veins in extremities No concern x DVT -referred vascular ------- requested to Govind Esteban To check status of referral Assessment & Plan (04/10/2023 7:25 PM EDT): Pt with vague complaints ,reports pain over palpation of superficial veins in extremities No concern x DVT -referred to vascular Hypothyroidism 12/28/2022 Assessment & Plan (05/08/2023 8:24 PM EDT): Reports to be complaint w levothyroxine 03/2023 TSH and T4 are wnl -continue levothyroxine -repeat TFT in 6 mo -aprox 09/2023 Assessment & Plan (04/10/2023 7:16 PM EDT): Reports to be complaint w levothyroxine -labs Neuropathic pain 09/07/2022 Assessment & Plan (05/08/2023 8:22 PM EDT): -Brain MRI w/wo contrast 2018 There is no pathologic intracranial pathology.There is mild mucosal thickening throughout the maxillary sinuses and ethmoid air cells bilaterally. The mastoid air cells are clear. -EMG upper extremities: 2019: Early carpal tunnel syndrome on the right, otherwise normal study. Normal EMG of the right C5 through T1 innervated muscle -Pt will come for f up apt in 6 weeks and will do then complete neuro exam and further evaluation Assessment & Plan (04/10/2023 7:15 PM EDT): -Brain MRI w/wo contrast 2019 There is no pathologic intracranial pathology.There is mild mucosal thickening throughout the maxillary sinuses and ethmoid air cells bilaterally. The mastoid air cells are clear. -EMG upper extremities: 2019: Early carpal tunnel syndrome on the right, otherwise normal study. Normal EMG of the right C5 through T1 innervated muscle -pt w mx complaints today -will start with lab exams and will discuss at next apt in regards numbness Gastroesophageal reflux disease 09/17/2017 Assessment & Plan (05/08/2023 8:22 PM EDT): Controlled -off PPIs x months -monitor Assessment & Plan (04/10/2023 7:16 PM EDT): Controlled -off PPIs x months -monitor Anxiety 02/03/2013 Assessment & Plan (07/30/2023 3:19 PM EST): Patient with symptoms of anxiety and depression. Reason for visit was to assess symptoms, provide intervention and offer referral. History of depression, family problems and sense of isolation are exacerbating symptoms. No risk for SI, nor self-harm. Provided psychoeducation around anxiety and ways to control symptoms by practicing mechanisms and self-care. Recommended to continue with services with [facility]N at [facility] for individual therapy. Discussed adding patient to wait list within the health center. At this time Cindy Lynn meets criteria for Visit Diagnoses: Problem List Items Addressed This Visit Other Anxiety Moderate episode of recurrent major depressive disorder (CMS/HCC) Family problems Patient ready to address current needs Yes Strengths include readiness to take control and engage in services PLAN: 1. Follow up with [facility]: Recommended for follow-up: as needed 2. Patient goal is to maintain a stable mental health and practice self-care 3. Behavioral Recommendations a. Continue to attend individual therapy sessions with BHN b. Utilize coping mechanisms to decrease symptoms c. Be added to wait list for psychopharmacology at [facility] Resolved Problems Problem Noted Date Diagnosed Date Resolved Date Herpetic miranda 07/28/2023 11/12/2023 Vitamin D deficiency 05/23/2018 023 Depressive disorder 02/03/2013 04/10/20 23 Encounters Date Type Department Care Team Description 01/20/2025 Telephone [facility] [address] [place] [address] Molly Narayan MD PT1 01/19/2025 11:15 AM EDT Office Visit [facility] [address] [place] [address] Molly Narayan MD Memory loss (Primary Dx); Swallowing problem; Swelling around both eyes; Anxiety; Health care maintenance; Facial swelling 01/19/2025 Travel 01/15/2025 Telephone [facility] [address] [place] [phone] Molly Narayan MD chartprep 01/11/2025 Refill [facility] [address] [place] [address] Renee Patel MD 11/27/2024 Population Health Risk Score Community [facility] () Department [address] [place] [phone] Provider, Population Health Generic 11/12/2024 Telephone [facility] [address] [place] [phone] Molly Narayan MD May recall 10/25/2024 Refill [facility] [address] [place] [address] Molly Narayan MD from Last 3 Months Immunizations Name Administration Dates Next Due Hep B, adult 11/17/2009,01/20/2009,12/22/2008 Influenza injectable quadriv alent preservative free 07/26/2023 Influenza, IIV3, injectable 08/26/2014, 0 Pfizer Covid-19 Vaccine 12+ Bivalent 04/10/2023 TD (adult), 2 Lf tetanus tox oid, preservative free, adsorbed 11/17/2009 Tdap 04/10/2023 Family History Medical History Relation Name Comments Heart attack Father heart condition Maternal Grandmother Hypothyroidism Mother cardiac condition -unspecified Mother breast cancer at her 60s Sister hai f sister on paternal side Relation Name Status Comments Father Maternal Grandmother Mother Sister Social History Tobacco Use Types Packs/Day Years Used Date Smoking Tobacco: Never Passive Smoke Exposure: Never Smokeless Tobacco: Never Tobacco Cessation:Counseling Given: Not Answered Alcohol Use Standard Drinks/Week Comments Not Currently [...] Orientation Straight 04/10/2023 12 :09 PM EDT Last Filed Vital Signs Vital Sign Reading Time Taken Comments Blood Pressure 111/73 01/19/2025 11:30 AM EDT Pulse 70 01/19/2025 11:30 AM EDT Temperature 36.1 ??C (97 ??F) 01/19/2025 11:30 AM EDT Respiratory Rate 20 01/19/2025 11:30 AM EDT Oxygen Saturation 98% 01/19/2025 11:30 AM EDT Inhaled Oxygen Concentration - - Weight 60.8 kg (134 lb) 01/19/2025 11:30 AM EDT Height 162.6 cm (5' 4 ) 01/19/2025 11:30 AM EDT Body Mass Index 23 01/19/2025 11:30 AM EDT Plan of Treatment Upcoming Encounters Date Type Department Care Team (Late st Contact Info) Description 03/25/2025 2:00 PM EDT Nurse Only [facility] [address] [place] [address] [phone] 03/29/2025 1:00 PM EDT Office Visit [facility] [address] [place] [address] [phone] Molly Narayan MD [address] [place] [phone] Health Maintenance Due Date Last Done Comments CT Colonography 1973 Colonoscopy 1973 Colorectal Cancer Screening 1975 FIT DNA/Cologuard 1975 FIT 1975 FOBT 1975 Sigmoidoscopy 1975 Family Planning (PISQ) 1988 Hepatitis A Vaccines (1 of 2 - Risk 2-dose series) 1992 Pneumococcal Vaccine: 50+ Years (1 of 1 - PCV) 12/31/2023 Zoster Vaccines (1 of 2) 12/31/2023 COVID-19 Vaccine ( season) 2024 04/10/2023, 07/19/2022, 02/10/2021 Influenza Vaccine (#1) 2024 , 08/26/2014, 11/17/2009 SDOH Screening 06/19/2025 06/19/2024 Depression Screening 07/03/2025 07/03/2024, 07/03/20 Alcohol/Substance Use Screening 01/19/2026 01/19/2025 Tobacco Screening 01/19/2026 01/19/2025 Mammogram 02/25/2026 02/26/2024, 11/14, 11/08/2020, Additional history exists Cervical Cancer Screening 06/26/2028 HPV/Cotest 06/26/2028 06/26/2023, 12/10/2018 Pap Smear 06/26/2028 06/26/2023 DTaP/Tdap/Td Vaccines (2 - Td or Tdap) 04/10/2033 04/10/2023, 11/17/2009 RSV Patients and Patients Aged 60 years or older (1 - 1-dose 75+ series) 2048 Hepatitis B Vaccines Completed 11/17/2009, 01/20/2009, 12/22/2008 HIV Screening Completed 04/16/2023 Hepatitis C Screening Completed 04/16/2023 HIB Vaccines Aged Out No longer eligi ble based on patient's age to complete this topic HPV Vaccines Aged Out No longer eligi ble based on patient's age to complete this topic IPV Vaccines Aged Out No longer eligi ble based on patient's age to complete this topic Meningococcal Vaccine Aged Out No jared sukhi eligible based on patient's age to complete this topic RSV under 20 months Aged Out No longe r eligible based on patient's age to complete this topic Rotavirus Vaccines Aged Out No longer eligible based on patient's age to complete this topic Procedures Procedure Name Priority Date/Time Associated Diagnosis Comments BI MAMMOGRAM SCREENING TOMOSYNTHESIS BILATERAL Routine 02/26/2024 3:50 PM EDT HPV MRNA E6/E7 REFLEX TO HPV 16, 18/45 Routine 06/26/2023 11:25 AM EDT PAP SMEAR Routine 06/26/2023 11:25 AM EDT HEPATITIS C ANTIBODY REFLEX Routine 04/16/2023 10:26 AM EDT HIV ANTIBODY/ANTIGEN ([place] DPH) Routine 04/16/2023 10:26 AM EDT from Last 3 Months or Most Recently Relevant to Health Maintenance Results * BI Mammogram Screening Tomosynthesis Bilateral (02/26/2024 3:50 PM EDT) Anatomical Region Laterality Modality Breast Bilateral Mammography 02/26/2024 3:50 PM EDT Narrative 03/27/2024 9:04 AM EDT ? [facility] ? [address] ?[place] [address] ? Mammography Report ? Signed ? Patient: Sen Lynn,Cindy ?MR# ?? : [id number] ? : 1975 ?Acct:[id number] ? Age/Sex: 48 / F ?ADM Date: 02/26/24 ? Loc: HO.MAMMO ? Attending Dr: Molly Yost MD ? Ordering Physician: Molly Narayan MD ?Re ?? sults: 1Negative ? Date of Service: 02/26/24 ?Follow Up: 1 Year From Orig ?? inal Mammogram ? Procedure(s): MM tomosynthesis screening BI ?? Accession Number(s): [id number] ? cc: Molly Narayan MD ? EXAMINATION: ?? MM SCREENING DIGITAL BREAST TOMOSYNTHESIS, BILATERAL ? CLINICAL INFORMATION: ? Screening. Asymptomatic. ? COMPARISON: ?? Mammography: This study is compared with prior exams dating back to ?? 2019. ? TECHNIQUE: ?? Digital breast tomosynthesis is performed in both the craniocaudal and ?? mediolateral oblique views along with computer-aided detection (CAD). ?? Synthesized 2D images are generated from the tomosynthesis. ? FINDINGS: ?? There are scattered areas of fibroglandular density (ACR BI-RADS breast ?? composition Category b). ? There are no significant masses, abnormal calcifications, or other ?? abnormalities. ? MM/MM tomosynthesis screening BI ?? IMPRESSION: ?? No mammographic evidence of malignancy. ? ASSESSMENT: ? BI-RADS BI-RADS 1 - Negative ? RECOMMENDATION: ?? Routine annual mammography screening. ? 1 year F/U ? This examination should not preclude the clinical evaluation of a ?? suspicious palpable abnormality. ? This patient's information was entered into a reminder system with a ?? target due date for their next mammogram. ? Dictated By: ?Marianna Dunham MD ? Signed By: ?<Electronically signed by Marianna Dunham MD in OV> ? 03/27/24 0900 ? DD/ 1550 ? TD/TT: ? Government Teacher: ? Procedure Note Danisha, Adina - 03/27/2024 [facility] [address] [place] [address] Mammography Report Signed Patient: Misha Mays# : [id number] : 1975Acct:[id number] Age/Sex: 48 / FADM Date: 02/26/24 Loc: JUARE[facility] Attending Dr: Molly Yost MD Ordering Physician: Molly Narayan sults: 1Negative Date of Service: 02/26/24Follow Up: 1 Year From Orig inal Mammogram Procedure(s): MM tomosynthesis screening BI Accession Number(s): [id number] cc: Molly Narayan MD EXAMINATION: MM SCREENING DIGITAL BREAST TOMOSYNTHESIS, BILATERAL CLINICAL INFORMATION: Screening. Asymptomatic. COMPARISON: Mammography: This study is compared with prior exams dating back to 2019. TECHNIQUE: Digital breast tomosynthesis is performed in both the craniocaudal and mediolateral oblique views along with computer-aided detection (CAD). Synthesized 2D images are generated from the tomosynthesis. FINDINGS: There are scattered areas of fibroglandular density (ACR BI-RADS breast composition Category b). There are no significant masses, abnormal calcifications, or other abnormalities. MM/MM tomosynthesis screening BI IMPRESSION: No mammographic evidence of malignancy. ASSESSMENT: BI-RADS BI-RADS 1 - Negative RECOMMENDATION: Routine annual mammography screening. 1 year F/U This examination should not preclude the clinical evaluation of a suspicious palpable abnormality. This patient's information was entered into a reminder system with a target due date for their next mammogram. Dictated By: Marianna Dunham MD Signed By: <Electronically signed by Marianna Dunham MD in OV> 03/27/24 0900 DD/ 1550 TD/TT: Government Teacher: [facility] CenterCristianaBriseyda Yost MD IMG BI PROCEDURES Final Result * HPV mRNA E6/E7 w/Reflex to HPV Genotypes 16, 18/45 (06/26/2023 11:25 AM EDT) HPV nRNA E6/E7 Not Detected Not Detected [facility] Comment:Methodology: Transcr iption-Mediated AmplificationThis assay detects E6/E7 viral messenger RNA (mRNA) from 14high-risk HPV types (16,18,31,33,35,39,45,51,52,56,58,59,66,68).Cervical sources are required for HPV testing.If a vaginal source from a patient who has had atotal hysterectomy with removal of cervix wassubmitted, please contact the testing laboratoryfor alternative testing options.For additional information, please refer [email or web address]/faq/AUI082v0(This link if provided for information/educational purposes only.)THIS TEST WAS PERFORMED AT:[facility] [place] [phone] WALLACE MD HPV mRNA E6/E7 TNP [facility] HPV 16 RNA TNP [facility] HPV 18/45 RNA TNP [facility] 06/26/2023 11:2 5 AM EDT 06/27/2023 7:20 AM EDT Diogo Corrales CNM LAB CYTOLOGY ORDERABLES F inal Result [facility] [address] [place] [phone] * Pap Smear (06/26/2023 11:25 AM EDT) 06/26/2023 11:2 5 AM EDT 06/27/2023 7:20 AM EDT Narrative [facility] - 07/01/2023 8:45 AM EDT ----- ------- Name: Cindy Mays ? Age/Sex: 47/F ? : 1975 Unit#: [id number] ?? Attend Dr: DIOGO CORRALES CNM ?Re06/26/23 ?Status: DEP REF ? Location: HO.HHCLNP ? Disch: ? ----- ------- SPEC : [id number] ?RECD: 06/27/23 ? STATUS: ??SOUT ? REQ NUM: [id number] ? DEONTE: 06/26/23 ? SUBM DR: DIOGO CORRALES CNM ? ENTERED: ??06/27/23 ?SP TYPE: Pap Smr ?OTHR : ? ORDERED: ??Pap Smear ? Interpretation ?? Satisfactory for evaluation. ?? Mild inflammation. ?? Negative for intraepithelial lesion or malignancy. ?HPV mRNA E6/E7: ?NOT DETECTED ? This assay detects E6/E7 viral messenger RNA (mRNA) from 14 high-risk HPV types (16, 18, ?? 31, 33, 35, 39, 45, 51, 52, 56, 58, 59, 66, 68) ?? HPV testing performed by [facility], [place], [place]. ??See reference laboratory ?? pion of the EMR for entire report. ?Clinical Information LMP: Unknown date Previous PAP test: 2019, WNL ? Material Received ?? ThinPrep-Vaginal/Cervical ----- ------- Signed (signature on file) TAMEKA Oreilly ([facility]) 07/01/23 0845 ? ----- ------- ? END OF REPORT ? us Diogo SHIELDS LAB CYTOLOGY ORDERABLES F inal Result Performing Organization Address [facility]/ZIP Co de Phone Number [facility] [address] [place], [place] [phone] * Hepatitis C Antibody Reflex (04/16/2023 10:26 AM EDT) Hepatitis C Antibody Nonreactive Nonreactive [facility] Comment:Antibodies to HCV no t detected; does not exclude early acuteHCV infection. 04/16/2023 10:2 6 AM EDT 04/16/2023 11:15 AM EDT us Molly Yost MD LAB BLOOD ORDERAB LES Final Result Performing Organization Address [facility]/ZIP Co de Phone Number [facility] [address] [place], [place] [phone] * HIV Ab/Ag ([facility]) (04/16/2023 10:26 AM EDT) HIV AB/AG Nonreactive Nonreactive [facility] Comment:HIV-1 p24 Ag and/or HIV-1/HIV-2 Ab not detected.A test result that is nonreactive does not exclude thepossibility of exposure to or infection with HIV-1 and/orHIV-2. Nonreactive results in this assay for individualswith prior exposure to HIV-1 and/or HIV-2 may be due toantigen and antibody levels that are below the limit ofdetection of this assay.The [employer] HIV Ag/Ab Combo assay result andsupplemental assay results should be interpreted inconjunction with the patient's clinical presentation,history and other laboratory results. If the results areinconsistent with clinical evidence, additional testing issuggested to confirm the result. 04/16/2023 10:2 6 AM EDT 04/16/2023 11:15 AM EDT Molly Yost MD LAB BLOOD ORDERAB LES Final Result [facility] [address] [place] [address] [phone] from Last 3 Months or Most Recently Relevant to Health Maintenance [place] [address] [place] [address] C3 HSN FULL Care Teams Food Or Baggage Handling Rampman Relationship Specialty Start Date End Date Molly Narayan MD [address] [place] [phone] PCP - General Internal Medicine 01/02/23
--- OUTSIDE RECORDS SUMMARY | 2025-01-20 16:08 | XMS_ITS | Encounter Summary ---
Author Organization [employer] Address [address] [place] [address] [place] [address] Care Team Providers Care Administrative Technician Name Role Phone Molly Narayan MD Primary Care Pro vider Reason for Visit * Reason Comments Med Refill Encounter Details Date Type Department Care Team (Late st Contact Info) Description 10/25/2023 Refill [facility] [address] [place], [place] [phone] Molly Narayan MD [address] [place] [address] Social History Tobacco Use Types Packs/Day Years [...] Description 03/25/2025 2:00 PM EDT Nurse Only [facility] [address] [place] [address] 03/29/2025 1:00 PM EDT Office Visit [facility] [address] [place] [phone] Molly Narayan MD [address] [place] [address] documented as of this encounter Visit Diagnoses Not on filedocumented in this encounter Additional Health Concerns Assessment Noted Time PHQ-9 Depression Total Score: 12 023 11:43 AM EDT documented as of this encounter Care Teams Administrative Technician Relationship Specialty Start Date End Date Molly Narayan MD [address] [place] [address] PCP - General Internal Medicine 01/02/23 documented as of this encounter
--- OUTSIDE RECORDS SUMMARY | 2025-01-20 16:08 | XMS_ITS | Encounter Summary ---
Author Organization [employer] Address [address] [place] [address] [place] [address] Care Team Providers Care Food Science Professor Name Role Phone Molly Narayan MD Primary Care Pro vider Reason for Visit * Reason Comments Med Refill Encounter Details Date Type Department Care Team (Late st Contact Info) Description 05/19/2024 Refill [facility] [address] [place], [place] [phone] Molly Narayan MD [address] [place] [address] Social History Tobacco Use Types Packs/Day Years Used Date Smoking Tobacco: Never Passive Smoke Exposure: Never Smokeless Tobacco: Never Alcohol Use Standard Drinks/Week Comments Not Currently 0 (1 standard drink = 0.6 oz pur e alcohol) Depression Answer Date Recorded Patient Health Questionnaire-9 Score 12 04/10/2023 Housing Stability Answer Date Recorded What is your housing situation today? I have amy celestino 07/01/[address] you li [...] Description 03/25/2025 2:00 PM EDT Nurse Only [facility] [address] [place] [address] 03/29/2025 1:00 PM EDT Office Visit [facility] [address] [place] [address] Molly Narayan MD [address] [place] [phone] documented as of this encounter Visit Diagnoses Not on filedocumented in this encounter Additional Health Concerns Assessment Noted Time PHQ-9 Depression Total Score: 12 023 11:43 AM EDT documented as of this encounter Care Teams Food Science Professor Relationship Specialty Start Date End Date Molly Narayan MD [address] [place] [phone] PCP - General Internal Medicine 01/02/23 documented as of this encounter
--- OUTSIDE RECORDS SUMMARY | 2025-01-20 16:08 | XMS_ITS | Encounter Summary ---
Author Organization [employer] Address [address] [facility] [address] [place] [address] Care Team Providers Care Watermelon Inspector Name Role Phone Al Canela Primary Care Provider Unavail able Molly Naryaan MD Primary Care Pro vider Reason for Visit * Reason Onset Date Comments Med Refill 12/28/2022 Encounter Details Date Type Department Care Team (Late st Contact Info) Description 12/28/2022 Telephone [facility] [address] [place] [address] Al Canela AGNP Med Refill Social History Tobacco Use Types Packs/Day Years [...] encounter Miscellaneous Notes * Telephone Encounter - Denita Vera LPN - 12/28/2022 1:05 PM EDT Medication pended to PCP awaiting approval. * Telephone Encounter - Nadia Zeng - 12/28/2022 12:18 PM EDT Tc from pt requesting med refill for medication cloNIDine (Catapres) 0.1 MG tablet. documented in this encounter Plan of Treatment Upcoming Encounters Date Type Department Care Team (Late st Contact Info) Description 03/25/2025 2:00 PM EDT Nurse Only [address] [address] 03/29/2025 1:00 PM EDT Office Visit [address] [address] Molly Narayan MD [address] [place] [address] [phone] documented as of this encounter Visit Diagnoses Not on filedocumented in this encounter Care Teams Watermelon Inspector Relationship Specialty Start Date End Date Al Canela AGNP PCP - General Family Medicine 09/14/22 01/01/23 Molly Narayan MD [address] [place] [address] [phone] PCP - General Internal Medicine 01/02/23 documented as of this encounter
--- OUTSIDE RECORDS SUMMARY | 2025-01-20 16:08 | XMS_ITS | Encounter Summary ---
Author Organization [employer] Address [address] [facility] 7[address] [place] [address] Care Team Providers Care Double Corner Cutter Name Role Phone Al Canela Primary Care Provider Unavail able Molly Narayan MD Primary Care Pro vider Reason for Visit * Reason Onset Date Comments triage 12/28/2022 Encounter Details Date Type Department Care Team ([facility] st Contact Info) Description 12/28/2022 Telephone [facility] [address] [place], [place] [phone] Al Canela AGNP triage Social History Tobacco [...] Telephone Encounter - Barbra Contreras RN - 12/28/2022 1:11 PM EDT Triage call with [facility] [place] [id number] Pt reports waking up last 2 nights early AM with neck pain and some chest pain/tightness with some SOB. Pt reports that Pt was helping to push some furniture around last few days with other family member. Pt reports chest pain is probably due to anxiety which occurs when awakened with neck pain. Ptreports neck pain went away with application of cold then hot wet compresses. Neck pain is primarily on nap of neck and chest pain/tightness is in the middle of chest fracisco area. Pt is advised to come to [facility] to be seen today and Pt agrees. home care reviewed. Multiple (2) protocols were used on this call. Disposition for Call: See in Office or Video Visit Today Protocol Used: Neck Pain or Stiffness (Adult) Protocol-Based Disposition: See in Office or Video Visit Today Video visit not offered Positive Triage Question: * Patient wants to be seen * All higher-acuity triage questions were negative Care Advice Discussed: * Reassurance and Education - Neck Pain or Stiffness * Pain Medicines * Pain Medicines - Extra Notes and Warnings * Sleep * Activity * Stretching Exercises * Reasons To Call Back - Moderate pain (e.g., interferes with normal activities) lasts over 3 days - Pain lasts over 2 weeks - Pain begins to shoot into the arms - Numbness or weakness occurs in your arms or legs - You become worse * Use a Cold Pack for Pain * Use Heat After 48 Hours for Pain Protocol Used: Chest Pain (Adult) Protocol-Based Disposition: See in Office or Video Visit Today Video visit not offered Positive Triage Questions: * All other patients with chest pain (Exception: fleeting chest pain lasting a few seconds) * Patient wants to be seen * All higher-acuity triage questions were negative Care Advice Discussed: * Reasons To Call Back - Chest pain increases in frequency, duration or severity - Chest pain lasts over 5 minutes - Chest pains persist over 3 days - Difficulty breathing or unusual sweating occurs - Fever over 100.4 F (38.0 C) - You become worse * Telephone Encounter - Nadia Zeng - 12/28/2022 12:17 PM EDT Symptom: Anxiety or Panic Attack Outcome: Schedule an appointment to be seen within 3 days Reason: No high acuity concerns reported by caller The caller accepted this outcome documented in this encounter Plan of Treatment Upcoming Encounters Date Type Department Care Team (Late st Contact Info) Description 03/25/2025 2:00 PM EDT Nurse Only [facility] [address] [place] [address] 03/29/2025 1:00 PM EDT Office Visit [address] [address] Molly Narayan MD [address] [place] [address] documented as of this encounter Visit Diagnoses Not on filedocumented in this encounter Care Teams Double Corner Cutter Relationship Specialty Start Date End Date Al Canela AGNP PCP - General Family Medicine 09/14/22 01/01/23 Molly Narayan MD [address] [place] [phone] PCP - General Internal Medicine 01/02/23 documented as of this encounter
--- OUTSIDE RECORDS SUMMARY | 2025-01-20 16:08 | XMS_ITS | Encounter Summary ---
Author Organization [employer] Address [address] [place] [address] Care Team Providers Care Heavy Equipment Operator Name Role Phone Molly Narayan MD Primary Care Pro vider Reason for Referral * Imaging (Routine) - Authorized Specialty Diagnoses / Procedures Referred By Kinjal case Referred To Contact Radiology Diagnoses Swallowing problem Procedures FL Esophagus Barium Swallow Molly Narayan MD [address] [place] [address] Phone: tel: fax: [address] Phone: tel: fax: Referral ID Status Reason Start Date Expiration Date Visits Requested Visits Authorized [id number] Authorized Perform Procedure 01/19/2025 01/19/2026 1 1 * Imaging (Routine) - Authorized Specialty Diagnoses / Procedures Referred By Kinjal case Referred To Contact Radiology Diagnoses Memory loss Procedures MR Brain w/o Contrast Molly Narayan MD [address] [place] [address] Phone: tel: fax: [address] Phone: tel: fax: Referral ID Status Reason Start Date Expiration Date V isits Requested Visits Authorized [id number] Authorized 01/19/2025 01/19/2026 1 1 * Consultation (Routine) - Authorized Specialty Diagnoses / Procedures Referred By Kinjal case Referred To Contact Pharmacy Diagnoses Memory loss Molly Narayan MD [address] [place] [phone] Phone: tel: fax: Referral ID Status Reason Start Date Expiration Date Visits Requested Visits Authorized [id number] Authorized Continuity of Care 01/19/2025 01/19/2026 6 6 Encounter Details Date Type Department Care Team ([facility] st Contact Info) Description 01/19/2025 11:15 AM EDT Office Visit [facility] [address] [place] [address] [phone] Molly Narayan MD [address] [place] [phone] Memory loss (Primary Dx); Swallowing problem; Swelling around both eyes; Anxiety; Health care maintenance; Facial swelling Social History Tobacco Use Types Packs/Day Years [...] PM EDT documented as of this encounter Last Filed Vital Signs Vital Sign Reading [...] Mass Index 23 01/19/2025 11:30 AM EDT documented in this encounter Progress Notes * Molly Yost MD - 01/19/2025 11:15 AM EDT Subjective Patient ID: Cindy Lynn is a 49 y.o. female who presents for f up apt HPI 49 y F with PMX of depression/anxiety, GERD, hypothyroidism , H pylori test + s/p tx ( neg CAMERON w GIper pt ) Comes for f up apt ,not done labs ordered in 06/2024 -Reports facial swelling for the past 3 months on and off noted in eyes, cheeks ,denies tongue swelling nor difficulty breathing ,denies allergic reactions Pt states now she is taking levothyroxine ,pt is poor historian -Pt states few episodes of having difficulty swallowing saliva associated w SOB,denies particularlyfeeling anxious at those episodes,denies dysphagia for solids or liquids,denies weight loss Assessment and Plan: Health care maintenance -Annual exam done 06/2024 -Menopause: 43 y of age -pap smear 06/2023 Neg /HPV neg to repeat in 5 years -MM: 02/2024 : BIRADS 1 -colonoscopy:never -referred already -- -states done already but w poor prep to repeat --get records EGD and and colon records requested today to [place] -vaccines: s/p hep Bx3-immune, Covid [id number] booster ,Tdap 2022. Pxed shingrix vaccine today toher px ------ -pt agreed today again for [facility] referral -sent today Again -advied to bring all meds at next apt Neuropathic pain/CTS Right cubital fossa pain -Brain MRI w/wo contrast 2019 There is no pathologic intracranial pathology.There is mild mucosal thickening throughout the maxillary sinuses and ethmoid air cells bilaterally. The mastoid air cells are clear. -EMG upper extremities: 2019: Early carpal tunnel syndrome on the right, otherwise normal study.Normal EMG of the right C5 through T1 innervated muscle -pt w complete normal neuro exam at previous apt -02/07/2024 ESR wnl, CRP wnl, RF neg ,CCP neg ,ALISON neg Reports ongoing numbness pain in 3rd and 4rd fingers of both hands chronic ,Neg phalen and tinnel test but pain reproduced in arms and forearms w tests -not using ----will use wrist brace and if no better at next apt will consider referral to hand surgeon at next apt --requested to get to chief of staff doctor again today Liver cyst -CT Abdomen & Pelvis WO Cont - 10/02/20: No acute intraabdominal or pelvic pathology on this noncontrast study. Patchy subpleural airspace opacities in the visualized lungs as described. In the appropriate clinical setting, the possibility of COVID-19 pneumonia cannot be excluded. -from previous US report and in CTA chest as well noted liver cyst -Abd US 05/02/2023 : multiple simple liver cysts . The largest is 3.5x2.3x3.2 cm . -From literature review if cysts are < 4 cm and asymptomatic there no no need for further surveillance. Lower extremity pain Pt with vague complaints ,reports pain over palpation of superficial veins in extremities No concern x DVT -referred vascular -per pt already following ---Seen by vascular 05/2023 for left venous reflux dx for conservative vs surgical options pt opted for conservative management -px low dose compression stockings and prn f up--per pt was told to consider vascular procedure but pt refused for now-she willcall if symptoms worsening Hypothyroidism States taking levothyroxine 25 mg taking for the past 2 months 01/2024 TSH elevated , T4 wnl <----- TSH and T4 are wnl -continue levothyroxine current dose and advised to take med consistently -repeat TFT ordered already Depression with anxiety PHQ9 16 no SI , MISBAH 11 depression,anxiety w panic attacks , denies SI,nenita nor halluciantions Pt follows w outpt therapist -continue fluoxetine 20 mg daily -for now continue Cymbalta 20 mg daily -continue hydroxyzine TID prn x anxiety -f w therapist weekly -req to help w psychiatrist --spoke w Ofelia today to help again w pshyciatrist lost 2 apts already Chronic lower back pain Paraspinal point tenderness in lower back at last apt -referred to PT -states already started -will monitor if no improvement w tx will consider imaging -also pt w mx points of body pain -possible fibromyalgia ? -will need to eval complete criteria at future visit -tylenol prn Memory loss Minimentl by RN 11/11/2023 Pt scored a 18 out of a possible 30 points. This is considered to have cognitive impairment. It is however borderline as the range for this is 18-23 between cognitive impairment and sever cognitive impairment. When we factor in her level of education, her score is still abnormal as people with 8th grade education should have no less than a 21 to have a normal exam score. -CT head w/o contrast 2021 normal -02/07/2024 syphilis neg, folic acid and Vit b12 wnl ,CBC wnl, TSH elevated , T4 wnl -referred for Brain MRI in 01/2024 Not done --- Referred again today -Pt has significant memory loss, not completing evaluation or referrals W pt's permission I called today her daughter -listed as emergency contact Peggy Viramontes # [phone]-explained concern of memory loss and rec daughter to come w pt to apts and informed for rec referrals and plans so she can help pt -gave info for [employer] ,refuse VNA -will discuss at next apt about care management referral to help w apts -will refer to neurologist at next apt Nausea H pylori positive Seen in [facility] 01/27/2024 w vaginal itchiness + diarrhea x 4d sp abs for H.Pillory that she started 10 d prior symptoms (tetracycline + Flagyl) by her GI -ATBs were stopped and advised to start amoxicillin and clarithromycin px in [facility] to start in 2 weeks and was already tx w lotrisone cream ,States diarrhea recently resoled ,still having nausea sensation H.Pylori Urea breath test on 01/20/24 at [facility] GI office is positive --per pt had neg CAMERON w GI -famotidine BID prn -continue to f w GI --states had EGD-request records today Atypical chest pain -Reports having episodes of lower sternum discomfort described as stabbing sensation that last few seconds , thinks not reproduced , not radiated ,not associated w activity. -CT chest angiography 03/2022: No pulmonary emboli. No active pulmonary disease. -echocardiogram 2016: EF 60%,normal -cardiac stress test 2015: Indeterminate test -appears muscular in nature ,reproduced w palpation -EKG today NSR HR 58, Qtc 393 no ischmeinc findings -warm compresses -tylenol prn -alarm signs and symptoms Facial Swelling -Reports facial swelling for the past 3 months on and off noted in eyes, cheeks ,denies tongue swelling nor difficulty breathing ,denies allergic reactions Pt states now she is taking levothyroxine -advised pt to get labs ordered at last apt done to check TFT ,will check microalb as well today ifr/o this will further investigate other causes but pt has hx of hypothyroidism and was not complaint w med so would r/o this cause as possible etiology Episodes of dysphagia to saliva Pt states few episodes of having difficulty swallowing saliva associated w SOB,denies particularly feeling anxious at those episodes,denies dysphagia for solids or liquids,denies weight loss No abnormality on neck exam -per pt had recently EGD -will get records -referred today for Barium swallow -if neg eval and symptoms persisit will conisder neck imaging tostart w neck US Review of Systems -episodes of facial swelling cheeks and eyelids -episodes of difficulty swallowing saliva only Objective BP 111/73 (BP Location: Left arm, Patient Position: Sitting, BP Cuff Size: Adult) Pulse 70 Temp97 ??F (36.1 ??C) (Temporal) Resp 20 Ht 5' 4 (1.626 m) Wt 134 lb (60.8 kg) SpO2 98% BMI 23.00 kg/m?? Physical Exam Constitutional: General: She is not in acute distress. Appearance: Normal appearance. HENT: Head: Comments: There is mild swelling of eyelids , no other abnormalities noted in her face Neck: Comments: No masses palpated Musculoskeletal: Cervical back: Neck supple. No rigidity. Neurological: Mental Status: She is alert. Assessment/Plan Problem List Items Addressed This Visit Anxiety Health care maintenance Memory loss - Primary Relevant Orders Referral to Pharmacy MT MR Brain w/o Contrast Swallowing problem Relevant Orders FL Esophagus Barium Swallow Facial swelling Other Visit Diagnoses Swelling around both eyes Relevant Orders Albumin, Random Urine W/Creatinine documented in this encounter Plan of Treatment Upcoming Encounters Date Type Department Care Team (Late st Contact Info) Description 03/25/2025 2:00 PM EDT Nurse Only [facility] [address] [place] [address] 03/29/2025 1:00 PM EDT Office Visit [facility] [address] [place] [address] Molly Narayan MD [address] [place] [phone] Scheduled Orders Name Type Priority Associated Diagnoses Orde r Schedule MR Brain w/o Contrast Imaging Routine Memory loss Expected: 01/19/2025, Expires: 01/19/2026 Albumin, Random Urine W/Creatinine Lab Routine Swelling around both eyes Expected: 01/19/2025 (Approximate), Expires: 01/19/2026 FL Esophagus Barium Swallow Imaging Routine Swallowing problem Expected: 01/19/2025, Expires: 01/19/2026 Scheduled Referrals Name Type Priority Associated Diagnoses Orde r Schedule Referral to Pharmacy MT Outpatient Referral Routine Memory loss Ordered: 01/19/2025 documented as of this encounter Visit Diagnoses Diagnosis Memory loss- Primary Swallowing problem Swelling around both eyes Anxiety Anxiety state, unspecified Health care maintenance Facial swelling Swelling, mass, or lump in head and neck documented in this encounter Additional Health Concerns Assessment Noted Time PHQ-9 Depression Total Score: 16 024 11:50 AM EDT documented as of this encounter Care Teams Heavy Equipment Operator Relationship Specialty Start Date End Date Molly Narayan MD [address] [place] [phone] PCP - General Internal Medicine 01/02/23 documented as of this encounter
--- OUTSIDE RECORDS SUMMARY | 2025-01-20 16:08 | XMS_ITS | Encounter Summary ---
Author Organization [employer] Address [address] [place] [address] Care Team Providers Care Code Enforcement Officer Name Role Phone Molly Narayan MD Primary Care Pro vider Reason for Visit * Reason Onset Date Comments PT1 01/20/2025 Encounter Details Date Type Department Care Team ([facility] st Contact Info) Description 01/20/2025 Telephone [facility] [address] [place], [place] [phone] Molly Narayan MD [address] [place] [address] PT1 Social History Tobacco Use Types Packs/Day Years [...] encounter Miscellaneous Notes * Telephone Encounter - Radha Ospina - 01/20/2025 3:37 PM EDT Patient calling requesting PT1 Home Address verified: Y/N: Yes Provider name or facility name: * [facility]- [address] [place] [id number] - Dr. Tineo Escort needed: Y/N: No Do you have a wheelchair: Y/N: No If yes- Manual or electric: Visits: (amount of visits) ( x monthly, weekly, daily) Next Appointment on 03/29/2025 at 1pm. documented in this encounter Plan of Treatment Upcoming Encounters Date Type Department Care Team (Late st Contact Info) Description 03/25/2025 2:00 PM EDT Nurse Only [facility] [address] [place] [address] 03/29/2025 1:00 PM EDT Office Visit [facility] [address] [place] [address] Molly Narayan MD [address] [place] [address] documented as of this encounter Visit Diagnoses Not on filedocumented in this encounter Additional Health Concerns Assessment Noted Time PHQ-9 Depression Total Score: 16 024 11:50 AM EDT documented as of this encounter Care Teams Code Enforcement Officer Relationship Specialty Start Date End Date Molly Narayan MD [address] [place] [address] PCP - General Internal Medicine 01/02/23 documented as of this encounter
--- OUTSIDE RECORDS SUMMARY | 2025-01-20 16:08 | XMS_ITS | Encounter Summary ---
Author Organization [employer] Address [address] [facility] 7t [place] [address] Care Team Providers Care Black Leather Buffer Name Role Phone Molly Narayan MD Primary Care Pro vider Reason for Visit * Reason Comments Med Refill Encounter Details Date Type Department Care Team (Late st Contact Info) Description 01/11/2025 Refill [facility] [address] [place], [place] [phone] Renee Patel MD [address] [place], [place] [phone] Social History Tobacco Use Types Packs/Day Years [...] [facility] [address] [place] [phone] 03/29/2025 1:00 PM EDT Office Visit [facility] [address] [place] [phone] Molly Narayan MD [address] [place] [phone] documented as of this encounter Visit Diagnoses Not on filedocumented in this encounter Additional Health Concerns Assessment Noted Time PHQ-9 Depression Total Score: 16 024 11:50 AM EDT documented as of this encounter Care Teams Black Leather Buffer Relationship Specialty Start Date End Date Molly Narayan MD [address] [place] [phone] PCP - General Internal Medicine 01/02/23 documented as of this encounter
[2025-01-20 16:19] LABS: Hematocrit 40.1 % (37.0-47.0); Hemoglobin 13.6 g/dl (12.0-16.0); Mean Corpuscular HGB Conc 33.9 g/dl (31.0-35.0); Mean Corpuscular Hemoglobin 29.2 pg (27.0-33.0); Mean Corpuscular Volume 86.1 fL (80.0-98.0); Mean Platelet Volume 9.9 fL (9.4-12.3); Platelet Count 246 X10*3/uL (160-400); Red Blood Count 4.66 X10*6/uL (4.20-5.50); Red Cell Distribution Width 12.9 % (11.0-16.0); White Blood Count 5.9 X10*3/uL (4.8-10.8)
[2025-01-20 16:28] LABS: Estimated Average Glucose 114 mg/dL; Hemoglobin A1C 131.0436 umol/L; Hemoglobin A1c % 5.6 % (<6.0); Total Hemoglobin (HGBA1C) 3503.9748 umol/L
[2025-01-20 16:56] LABS: Alanine Aminotransferase 19 U/L (0-31); Albumin Level 4.5 g/dL (3.5-5.0); Alkaline Phosphatase 54 U/L (39-117); Anion Gap 9 (12-20); Aspartate Amino Transferase 24 U/L (5-31); Bilirubin Total 0.5 mg/dL (0.0-1.0); Blood Urea Nitrogen 17 mg/dL (9-16); Calcium 9.5 mg/dL (8.4-10.2); Carbon Dioxide 28 mmol/L (22-29); Chloride 105 mmol/L (96-108); Cholesterol 210 mg/dL (<200); Estimated Glomerular Filt Rate > 60; Glucose Random 94 mg/dL (60-115); HDL Cholesterol 49 mg/dL (>40); LDL Cholesterol Calculated 145 mg/dL (<100); Potassium 3.9 mmol/L (3.3-5.1); Sodium 138 mmol/L (135-145); Total Protein 7.6 g/dL (6.5-8.0); Triglycerides 84 mg/dL (<150)
[2025-01-20 16:57] LABS: Creatinine Urine 65.27 mg/dL; Microalbum/Creatinine Ratio Ur 7.6 ug/mg cr (<30)
[2025-01-20 17:04] LABS: Free T4 (Free Thyroxine) 0.98 ng/dL (0.71-1.85); Thyroid Stimulating Hormone 3.33 uIU/mL (0.32-4.0)
[2025-01-20 18:05] LABS: CT PCR NOT DETECTED (Not Detect.); NG PCR NOT DETECTED (Not Detect.)
[2025-01-21 04:12] LABS: Syphilis Screen Nonreactive (Nonreactive)
[2025-01-21 04:25] LABS: HBS Num1 13.64 mIU/mL (0-7.99); HBsAGNum1 0.28 S/CO (0.00-0.99); HIV AB/AG Nonreactive (Nonreactive); HIV Num 1 0.06 S/CO (0.00-0.99); Hepatitis B Core Antibody Nonreactive (Nonreactive); Hepatitis B Surface Antigen Negative (Negative); ~HepC Num1 0.08 S/CO (0.00-0.79); ~Hepatitis B Surface Antibody REACTIVE (Nonreactive); ~Hepatitis C Antibody Nonreactive (Nonreactive)
== END 2025-01-20 15:11 | disposition home or self-care (01) ==
LOC: HO.HHCL 15:10
PROVIDERS: Visit Provider Student in an Organized Health Care Education/Training Program
DX: Z00.00 Encounter for general adult medical examination without abnormal findings (principal); R22.0 Localized swelling, mass and lump, head
CPT/HCPCS: 80053; 80061; 82043; 82570; 83036; 84439; 84443; 85027; 86704; 86706; 86780; 86803; 87340; 87389; 87491; 87591

== ENCOUNTER 2025-01-24 10:53 | Outpatient (REF) | payer MEDICAID, SELFPAY ==
--- NOTE | ~2025-01-24 | MR_ITS ---
EXAMINATION: MR BRAIN WITHOUT CONTRAST CLINICAL INFORMATION: Memory loss COMPARISON: March 23, 2019 TECHNIQUE: MRI of the brain was obtained using routine sequences without contrast. FINDINGS: No restricted diffusion. No acute intracranial hemorrhage, mass effect, midline shift, hydrocephalus or herniation. Villatoro-white matter differentiation is normal. Sellar/suprasellar region demonstrated no signal abnormality or masses. Craniocervical junction is intact with a normal position of the cerebellar tonsils. No signal abnormality or volume loss in the hippocampi Flow-void signal within the main cerebral vessels is normal. CSF prominence in the Meckel's caves, bilaterally. 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 Polypoid paranasal sinus disease without air-fluid levels. Prominent lymph nodes, suboccipital. MR/MR head/brain wo con IMPRESSION: No acute brain abnormality. Meckel's caves meningoceles, bilaterally. Electronically signed by: Mark Prasad MD 01/25/2025 06:57 AM EDT
--- OUTSIDE RECORDS SUMMARY | 2025-01-24 10:56 | XMS_ITS | Encounter Summary ---
Author Organization [employer] Address [address] [place] [address] 7 [place] [address] Care Team Providers Care Steamboat Inspector Name Role Phone Hilton Al TRENT Primary Care Provider Unavail Molly Enrique MD Primary Care Pro vider Reason for Visit * Reason Comments Med Refill Encounter Details Date Type Department Care Team (Late Contact Info) Description 12/28/2022 Refill [facility] [address] [place] [address] [phone] Name, MD Enrico [address] [place] [phone] Subclinical hypothyroidism Social History Tobacco Use Types [...] Care Team (Late st Contact Info) Description 02/18/2025 11:00 AM EDT Medication Management [facility] [address] [place] [address] [phone] 03/25/2025 2:00 PM EDT Nurse Only [facility] [address] [place] [phone] 03/29/2025 1:00 PM EDT Office Visit [facility] [address] [place] [address] Molly Narayan MD [address] [place] [address] documented as of this encounter Visit Diagnoses Diagnosis Subclinical hypothyroidism Other specified acquired hypothyroidism documented in this encounter Care Teams Steamboat Inspector Relationship Specialty Start Date End Date Al Canela AGNP PCP - General Family Medicine 09/14/22 01/01/23 Molly Narayan MD [address] [place] [address] PCP - General Internal Medicine 01/02/23 documented as of this encounter
--- OUTSIDE RECORDS SUMMARY | 2025-01-24 10:56 | XMS_ITS | Encounter Summary ---
Author Organization [employer] Address [address] [facility] 7t [place] [address] Care Team Providers Care Antenna Rigger Name Role Phone Molly Narayan MD Primary [...] Description 02/18/2025 11:00 AM EDT Medication Management [address] [address] 03/25/2025 2:00 PM EDT Nurse Only [address] [address] 03/29/2025 1:00 PM EDT Office Visit [address] [address] Molly Narayan MD [address] [place] [address] documented as of this encounter Visit Diagnoses Not on filedocumented in this encounter Additional Health Concerns Assessment Noted Time PHQ-9 Depression Total Score: 16 024 11:50 AM EDT documented as of this encounter Care Teams Antenna Rigger Relationship Specialty Start Date End Date Molly Narayan MD [address] [place] [phone] PCP - General Internal Medicine 01/02/23 documented as of this encounter
--- OUTSIDE RECORDS SUMMARY | 2025-01-24 10:56 | XMS_ITS | Encounter Summary ---
Author Organization [employer] Address [address] [place] [phone] Care Team Providers Care Liquefaction Plant Operator Name Role Phone Molly Narayan MD Primary Care Pro vider Reason for Visit * Reason Onset Date Comments PT1 01/20/2025 Encounter Details Date Type Department Care Team ([facility] st Contact Info) Description 01/20/2025 Telephone [facility] [address] [place], [place] [phone] Molly Narayan MD [address] [place] [address] PT1 Social History Tobacco Use Types Packs/Day [...] * [facility]- [address] [place] [phone] - Dr. Tineo Escort needed: Y/N: No Do you have a wheelchair: Y/N: No If yes- Manual or electric: Visits: (amount of visits) ( x monthly, weekly, daily) Next Appointment on 03/29/2025 at 1pm. documented in this encounter Plan of Treatment Upcoming Encounters Date Type Department Care Team (Late st Contact Info) Description 02/18/2025 11:00 AM EDT Medication Management [facility] [address] [place] [phone] 03/25/2025 2:00 PM EDT Nurse Only [address] [address] 03/29/2025 1:00 PM EDT Office Visit [address] [address] Molly Narayan MD [address] [place] [address] documented as of this encounter Visit Diagnoses Not on filedocumented in this encounter Additional Health Concerns Assessment Noted Time PHQ-9 Depression Total Score: 16 024 11:50 AM EDT documented as of this encounter Care Teams Liquefaction Plant Operator Relationship Specialty Start Date End Date Molly Narayan MD [address] [place] [address] PCP - General Internal Medicine 01/02/23 documented as of this encounter
--- OUTSIDE RECORDS SUMMARY | 2025-01-24 10:56 | XMS_ITS | Encounter Summary ---
Author Organization [employer] Address [address] [place] [phone] Care Team Providers Care Tour Operator Name Role Phone Molly Narayan MD Primary Care Pro vider Reason for Referral * Imaging (Routine) - Authorized Specialty Diagnoses / Procedures Referred By Kinjal case Referred To Contact Radiology Diagnoses Swallowing problem Procedures [place] Esophagus Barium Swallow Molly Narayan MD [address] [place] [address] Phone: tel: fax: [address] Phone: tel: fax: Referral ID Status Reason Start Date Expiration Date Visits Requested Visits Authorized [id number] Authorized Perform Procedure 01/19/2025 01/19/2026 1 1 * Imaging (Routine) - Authorized Specialty Diagnoses / Procedures Referred By Kinjal case Referred To Contact Radiology Diagnoses Memory loss Procedures MR Brain w/o Contrast Molly Narayan MD [address] [place] [address] Phone: tel: fax: [address] Phone: tel: fax: Referral ID Status Reason Start Date Expiration Date V isits Requested Visits Authorized [id number] Authorized 01/19/2025 01/19/2026 1 1 * Consultation (Routine) - Authorized Specialty Diagnoses / Procedures Referred By Kinjal case Referred To Contact Pharmacy Diagnoses Memory loss Molly Narayan MD [address] [place] [address] Phone: tel: fax: Referral ID Status Reason Start Date Expiration Date Visits Requested Visits Authorized [id number] Authorized Continuity of Care 01/19/2025 01/19/2026 6 6 Encounter Details Date Type Department Care Team ([facility] st Contact Info) Description 01/19/2025 11:15 AM EDT Office Visit [facility] MEDICINE [address] [place] [address] [phone] Molly Narayan MD [address] [place] [address] Memory loss (Primary Dx); Swallowing problem; Swelling [...] to [place] -vaccines: s/p hep Bx3-immune, Covid [id number] booster ,Tdap 2022. Pxed shingrix vaccine today [...] at next apt --requested to get to field staff manager again today Liver cyst -CT Abdomen & [...] -listed as emergency contact Peggy Viramontes # [phone]-explained concern of memory loss and rec daughter to come w pt to apts and informed for rec referrals and plans so she can help pt -gave info for [employer] ,refuse VNA -will discuss at next apt about care management referral to help w apts -will refer to neurologist at next apt Nausea H pylori positive Seen in [facility] 01/27/2024 w vaginal itchiness + diarrhea x 4d sp abs for H.Pillory that she started 10 d prior symptoms (tetracycline + Flagyl) by her GI -ATBs were stopped and advised to start amoxicillin and clarithromycin px in [facility] to start in 2 weeks and was already tx w lotrisone cream ,States diarrhea recently resoled ,still having nausea sensation H.Pylori Urea breath test on 01/20/24 at [facility] GI office is positive --per pt had [...] Description 02/18/2025 11:00 AM EDT Medication Management [facility] [address] [place] [phone] 03/25/2025 2:00 PM EDT Nurse Only [address] [address] 03/29/2025 1:00 PM EDT Office Visit [address] [address] Molly Narayan MD [address] [place] [address] Scheduled Orders Name Type Priority Associated Diagnoses Orde r Schedule MR Brain w/o Contrast Imaging Routine Memory loss Expected: 01/19/2025, Expires: 01/19/2026 [place] Esophagus Barium Swallow Imaging Routine Swallowing problem Expected: 01/19/2025, Expires: 01/19/2026 Scheduled Referrals Name Type Priority Associated Diagnoses Orde r Schedule Referral to Pharmacy [facility] Outpatient Referral Routine Memory loss Ordered: 01/19/2025 documented as of this encounter Procedures Procedure Name Priority Date/Time Associated Diagnosis Comments ALBUMIN, RANDOM URINE W/CREATININE Routine 01/20/2025 3:12 PM EDT Swelling around both eyes documented in this encounter Results * Albumin, Random Urine W/Creatinine (01/20/2025 3:12 PM EDT) Creatinine, Urine 65.27 mg/dL [facility] Microalbumin Urine 5.0 mg/L [facility] Microalbum Creatinine Ratio Ur 7.6 <30 ug/mg cr [facility] Comment:Albumin/Creatinine R atio Reference Ranges: Normal: < 30 ug/mg creatinine Microalbuminuria: 30 - 300 ug/mg creatinineClinical Albuminuria: > 300 ug/mg creatinine Urine (Urine, Random) 01/20/2025 3:12 PM EDT 01/20/2025 4:08 PM EDT us Molly Yost MD LAB URINE ORDERAB LES Final Result Performing Organization Address City/State/[facility] Co de Phone Number [facility] [address] [place] [address] [phone] documented in this encounter Visit Diagnoses Diagnosis Memory loss- Primary Swallowing problem Swelling around both eyes Anxiety Anxiety state, unspecified Health care maintenance Facial swelling Swelling, mass, or lump in head and neck documented in this encounter Additional Health Concerns Assessment Noted Time PHQ-9 Depression Total Score: 16 024 11:50 AM EDT documented as of this encounter Care Teams Tour Operator Relationship Specialty Start Date End Date Molly Narayan MD [address] [place] [address] PCP - General Internal Medicine 01/02/23 documented as of this encounter
--- OUTSIDE RECORDS SUMMARY | 2025-01-24 10:56 | XMS_ITS | Clinical Summary ---
Author Organization [facility] Address [address] [place] [address] Care Team Providers Care Workers Compensation Manager Name Role Phone Unavailable Primary Care Provider [...] (08/12/2024): Urea breath test on 01/20/24 at [facility] GI is POS. Rx initially with tetracycline + Flagyl (GI office)--> Diarrhea/vulvovaginitis on 01/27/24, then started on Amox/clarithromycin Memory loss 11/12/2023 Moderate episode of recurren t major depressive disorder ([facility]) 07/26/2023 Assessment & Plan (08/12/2024 7:19 AM EST): Pt unsure if she needs refills. PCP appt- 09/04/24? Pt declines f/u visit for next week, stating she prefers seeing a provider in person [significant communication barriers- cannot connect via video, sprayer leather, telephone issues]. Pt has a therapist, will [...] 2018 Imm-Zoster, Recombinant (1 of 2) 12/31/2023 [id number] ( season) 2024 04/10/2023, 07/19/2022, 02/10/2021 Imm-Influenza [...] Pap Discontinued Vulvoscopy Discontinued Insurance [place] [facility] MD MEDICAID
--- OUTSIDE RECORDS SUMMARY | 2025-01-24 10:56 | XMS_ITS | Encounter Summary ---
Author Organization [employer] Address [address] [facility] 7t [place] [address] Care Team Providers Care Decorating Inspector Name Role Phone Al Canela Primary Care Provider Unavail able Molly Narayan MD Primary Care Pro vider Reason for Visit * Reason Onset Date Comments triage 12/28/2022 Encounter Details Date Type Department Care Team ([facility] st Contact Info) Description 12/28/2022 Telephone [facility] [address] [place], [place] [phone] Al Canela AGNP triage Social History Tobacco [...] 12/28/2022 1:11 PM EDT Triage call with [place] [employer] Professor [place] [id number] Pt reports waking up last 2 nights [...] area. Pt is advised to come to [facility] to be seen today and Pt [...] 02/18/2025 11:00 AM EDT Medication Management [address] [address] 03/25/2025 2:00 PM EDT Nurse Only [address] [address] 03/29/2025 1:00 PM EDT Office Visit [address] [address] Molly Narayan MD [address] [place] [address] documented as of this encounter Visit Diagnoses Not on filedocumented in this encounter Care Teams Decorating Inspector Relationship Specialty Start Date End Date Al Canela AGNP PCP - General Family Medicine 09/14/22 01/01/23 Molly Narayan MD [address] [place] [phone] PCP - General Internal Medicine 01/02/23 documented as of this encounter
--- OUTSIDE RECORDS SUMMARY | 2025-01-24 10:56 | XMS_ITS | Encounter Summary ---
Author Organization [employer] Address [address] [facility] 7t [place] [address] Care Team Providers Care Officer Captain Name Role Phone Al Canela Primary Care Provider Unavail able oMlly Narayan MD Primary Care Pro vider Reason for Visit * Reason Onset Date Comments Med Refill 12/28/2022 Encounter Details Date Type Department Care Team (Late st Contact Info) Description 12/28/2022 Telephone [facility] MEDICINE [address] [place] [phone] Al Canela AGNP Med Refill Social History [...] Description 02/18/2025 11:00 AM EDT Medication Management [address] [address] 03/25/2025 2:00 PM EDT Nurse Only [address] [address] 03/29/2025 1:00 PM EDT Office Visit [address] [address] Molly Narayan MD [address] [place] [address] documented as of this encounter Visit Diagnoses Not on filedocumented in this encounter Care Teams Officer Captain Relationship Specialty Start Date End Date Al Canela AGNP PCP - General Family Medicine 09/14/22 01/01/23 Molly Narayan MD [address] [place] [address] [phone] PCP - General Internal Medicine 01/02/23 documented as of this encounter
--- OUTSIDE RECORDS SUMMARY | 2025-01-24 10:56 | XMS_ITS | Clinical Summary ---
Author Organization [employer] Address [address] [place] [address] Care Team Providers Care Lab Support Technician Name Role Phone Molly Narayan MD [...] (01/27/2024): Urea breath test on 01/20/24 at [facility] GI is POS. Rx initially with [...] in services PLAN: 1. Follow up with [facility]: Recommended for follow-up: as needed 2. Patient goal is to maintain a stable mental health and practice self-care 3. Behavioral Recommendations a. Continue to attend individual therapy sessions with [facility] b. Utilize coping mechanisms to decrease symptoms c. Be added to wait list for psychopharmacology at [facility] Family problems 07/26/2023 Assessment & Plan (07/30/2023 [...] in services PLAN: 1. Follow up with [facility]: Recommended for follow-up: as needed 2. Patient goal is to maintain a stable mental health and practice self-care 3. Behavioral Recommendations a. Continue to attend individual therapy sessions with [facility] b. Utilize coping mechanisms to decrease symptoms c. Be added to wait list for psychopharmacology at [facility] Venous insufficiency of both lower extremities 1 [...] of referral -vaccines: s/p hep Bx3-immune, covid [id number] x1, tdap 2022 -decrease vision referred to [...] -referred today -vaccines: s/p hep Bx3, covid 09w5-[id number] today, tdap today -labs x annual exam [...] per pt - ---- requested reporrt to Gov[facility] Esteban -will f result w pt at [...] added to wait list for psychopharmacology at [facility] Resolved Problems Problem Noted Date Diagnosed Date Resolved Date Herpetic miranda 07/28/2023 11/12/2023 Vitamin D deficiency 05/23/2018 023 Depressive disorder 02/03/2013 04/10/20 23 Encounters Date Type Department Care Team Description 01/20/2025 Telephone [facility] MEDICINE [address] [place] [address] Molly Narayan MD PT1 01/19/2025 11:15 AM EDT Office Visit [facility] MEDICINE [address] [place] [address] Molly Narayan MD Memory loss (Primary Dx); Swallowing problem; Swelling around both eyes; Anxiety; Health care maintenance; Facial swelling 01/19/2025 Travel 01/15/2025 Telephone [facility] MEDICINE [address] [place] [phone] Molly Narayan MD chartprep 01/11/2025 Refill [facility] MEDICINE [address] [place] [address] Renee Patel MD 11/27/2024 Population Health Risk Score [facility] () Department [address] [place] [phone] Provider, Population Health Generic 11/12/2024 Telephone [facility] MEDICINE [address] [place] [address] Molly Narayan MD May recall from Last 3 Months Immunizations Name Administration [...] Description 02/18/2025 11:00 AM EDT Medication Management [facility] MEDICINE [address] [place] [address] [phone] 03/25/2025 2:00 PM EDT Nurse Only [address] [phone] 03/29/2025 1:00 PM EDT Office Visit [address] [phone] Molly Narayan MD [address] [place] [address] [phone] Health Maintenance Due Date Last Done Comments CT Colonography 1975 Colonoscopy 1975 Colorectal Cancer Screening 1975 FIT DNA/Cologuard 1975 FIT 1975 FOBT 1975 Sigmoidoscopy 1975 Family Planning (PISQ) 1988 Hepatitis A Vaccines (1 of 2 - Risk 2-dose series) 1992 Pneumococcal Vaccine: 50+ Years (1 of 1 - PCV) 12/31/2023 COVID-19 Vaccine ( season) 2024 04/10/2023, 07/19/2022, 02/10/2021 Influenza Vaccine (#1) 2024 , 08/26/2014, 11/17/2009 Zoster Vaccines (2 of 2) 03/17/2025 01/20/2025 SDOH Screening 06/19/2025 06/19/2024 Depression Screening 07/03/2025 07/03/2024, 07/03/20 24 Alcohol/Substance Use Screening 01/19/2026 01/19/2025 Tobacco Screening [...] Completed 11/17/2009, 01/20/2009, 12/22/2008 HIV Screening Completed 01/20/2025, 04/16/2023 Hepatitis C Screening Completed 01/20/2025, 023 HIB Vaccines Aged Out No longer eligi [...] 3:12 PM EDT Swelling around both eyes T4, FREE Routine 01/20/2025 3:12 PM EDT Annual physical exam TSH Routine 01/20/2025 3:12 PM EDT Annual physical exam SYPHILIS SCREEN Routine 01/20/2025 3:12 PM EDT Annual physical exam LIPID PANEL, STANDARD Routine 01/20/2025 3:12 PM EDT Annual physical exam HIV 1/2 ANTIGEN/ANTIBODY, FOURTH GENERATION W/RFL Routine 01/20/2025 3:12 PM EDT Annual physical exam HEPATITIS C AB W/REFL TO HCV RNA, QN, PCR Routine 01/20/2025 3:12 PM EDT Annual physical exam HEPATITIS B SURFACE ANTIGEN, EIA Routine 01/20/2025 3:12 PM EDT Annual physical exam HEPATITIS B SURFACE ANTIBODY, QUALITATIVE Routine 01/20/2025 3:12 PM EDT Annual physical exam HEPATITIS B CORE AB TOTAL Routine 01/20/2025 3:12 PM EDT Annual physical exam HEMOGLOBIN A1C Routine 01/20/2025 3:12 PM EDT Annual physical exam COMPREHENSIVE METABOLIC PANEL Routine 01/20/2025 3:12 PM EDT Annual physical exam CBC Routine 01/20/2025 3:12 PM EDT Annual physical exam CHLAMYDIA/N. GONORRHOEAE RNA, TMA, UROGENITAL Routine 01/20/2025 3:12 PM EDT Annual physical exam BI MAMMOGRAM SCREENING TOMOSYNTHESIS BILATERAL Routine 02/26/2024 3:50 PM EDT HPV MRNA E6/E7 REFLEX TO HPV 16, 18/45 Routine 06/26/2023 11:25 AM EDT PAP SMEAR Routine 06/26/2023 11:25 AM EDT from Last 3 Months or Most Recently Relevant to Health Maintenance Results * Syphilis Screen (01/20/2025 3:12 PM EDT) Syphilis Screen Nonreactive Nonreactive [facility] Blood 01/20/2025 3:12 PM EDT 01/20/2025 4:09 PM EDT us Molly Yost MD LAB BLOOD ORDERAB LES Final Result Performing Organization Address [facility] Co de Phone Number [facility] [address] [place] [phone] * Albumin, Random Urine W/Creatinine (01/20/2025 3:12 PM EDT) Creatinine, Urine 65.27 mg/dL [facility] Microalbumin Urine 5.0 mg/L [facility] Microalbum Creatinine Ratio Ur 7.6 <30 ug/mg cr [facility] Comment:Albumin/Creatinine R atio Reference Ranges: Normal: < 30 ug/mg creatinine Microalbuminuria: 30 - 300 ug/mg creatinineClinical Albuminuria: > 300 ug/mg creatinine Urine (Urine, Random) 01/20/2025 3:12 PM EDT 01/20/2025 4:08 PM EDT us Molly Yost MD LAB URINE ORDERAB LES Final Result Performing Organization Address [facility] Co de Phone Number [facility] [address] [place] [phone] * Hepatitis C Antibody with Reflex to HCV, RNA, Quantitative, Real-Time PCR (01/20/2025 3:12 PM EDT) Hepatitis C Antibody Nonreactive Nonreactive [facility] Comment:Antibodies to HCV no t detected; does not exclude early acuteHCV infection. Blood Venous blood specimen / Unknown 01/20/2025 3:12 PM EDT 01/20/2025 4:09 PM EDT us Molly Yost MD LAB BLOOD ORDERAB LES Final Result Performing Organization Address [facility] Co de Phone Number [facility] [address] [place] [phone] * Chlamydia/N. Gonorrhoeae RNA, TMA, Urogenitial (01/20/2025 3:12 PM EDT) CT PCR NOT DETECTED Not Detect. [facility] Comment:A not detected test result does not exclude the possibilityof infection because test results can be affected byimproper specimen collection, concurrent antibiotic therapy,or the number of organisms in the specimen which may bebelow the sensitivity of the test. As with many diagnostictests, results from the Xpert CT/NG assay should beinterpreted in conjunction with other laboratory andclinical data available to the clinician.Xpert CT/NG performance has not been evaluated in patientsless than 14 years of age. The assay should not be used forthe evaluationof suspected sexual abuse or for other medico-legalindications. Additional testing is recommended in anycircumstance when false positive or false negative resultscould lead to adverse medical, social or psychologicalconsequences. NG PCR NOT DETECTED Not Detect. [facility] Comment:A not detected test result does not exclude the possibilityof infection because test results can be affected byimproper specimen collection, concurrent antibiotic therapy,or the number of organisms in the specimen which may bebelow the sensitivity of the test. As with many diagnostictests, results from the Xpert CT/NG assay should beinterpreted in conjunction with other laboratory andclinical data available to the clinician.Xpert CT/NG performance has not been evaluated in patientsless than 14 years of age. The assay should not be used forthe evaluationof suspected sexual abuse or for other medico-legalindications. Additional testing is recommended in anycircumstance when false positive or false negative resultscould lead to adverse medical, social or psychologicalconsequences. Urine Urethral structure / Unknown 01/20/2025 3:12 PM EDT 01/20/2025 4:08 PM EDT Narrative [facility] - 01/20/2025 6:05 PM EDT Urine us Molly Yost MD LAB MICROBIOLOGY - GENERAL ORDERABLES Final Result [facility] [address] [place] [phone] * Hepatitis B surface antigen, EIA (01/20/2025 3:12 PM EDT) [facility] Hepatitis B Surface Ag Negative Negative [facility] Blood Venous blood specimen / Unknown 01/20/2025 3:12 PM EDT 01/20/2025 4:09 PM EDT Molly Yost MD LAB BLOOD ORDERAB LES Final Result Performing Organization Address City/[facility]/ZIP Co de Phone Number [facility] [address] [place] [phone] * Hepatitis B Core Antibody, Total (01/20/2025 3:12 PM EDT) [facility] Hepatitis B Core Antibody Nonreactive Nonreactive [facility] Blood Venous blood specimen / Unknown 01/20/2025 3:12 PM EDT 01/20/2025 4:09 PM EDT Molly Yost MD LAB BLOOD ORDERAB LES Final Result Performing Organization Address [facility]/ZIP Co de Phone Number [facility] [address] [place] [phone] * HIV-1/2 Antigen and Antibodies, Fourth Generation, with Reflexes (01/20/2025 3:12 PM EDT) [facility] HIV AB/AG Nonreactive Nonreactive [facility] Comment:HIV-1 p24 Ag and/or HIV-1/HIV-2 Ab not detected.A test result that is nonreactive does not exclude thepossibility of exposure to or infection with HIV-1 and/orHIV-2. Nonreactive results in this assay for individualswith prior exposure to HIV-1 and/or HIV-2 may be due toantigen and antibody levels that are below the limit ofdetection of this assay.The [employer] HIV Ag/Ab Combo assay result andsupplemental assay results should be interpreted inconjunction with the patient's clinical presentation,history and other laboratory results. If the results areinconsistent with clinical evidence, additional testing issuggested to confirm the result. Blood Venous blood specimen / Unknown 01/20/2025 3:12 PM EDT 01/20/2025 4:09 PM EDT Molly Yost MD LAB BLOOD ORDERAB LES Final Result Performing Organization Address City/[facility]/ZIP Co de Phone Number [facility] [address] [place] [phone] * Hepatitis B Surface Antibody, Qualitative (01/20/2025 3:12 PM EDT) Pathologist [facility] ~Hepatitis B Surface Antibody REACTIVE Nonreactive [facility] Comment:REACTIVE: > 11.99 mI U/mL Blood Venous blood specimen / Unknown 01/20/2025 3:12 PM EDT 01/20/2025 4:09 PM EDT Molly Yost MD LAB BLOOD ORDERAB LES Final Result Performing Organization Address [facility] de Phone Number [facility] [address] [place] [phone] * CBC (01/20/2025 3:12 PM EDT) [facility] White Blood Count 5.9 4.8 - 10.8 X10*3/uL [facility] Red Blood Count 4.66 4.20 - 5.50 X10*6/uL [facility] Hemoglobin 13.6 12.0 - 16.0 g/dl [facility] Hematocrit 40.1 37.0 - 47.0 % [facility] Mean Corpuscular Volume 86.1 80.0 - 98.0 fL [facility] Mean Corpuscular Hemoglobin 29.2 27.0 - 33.0 pg [facility] Mean Corpuscular HGB Conc 33.9 31.0 - 35.0 g/dl [facility] Red Cell Distribution Width 12.9 11.0 - 16.0 % [facility] Platelet Count 246 160 - 400 X10*3/uL [facility] Mean Platelet Volume 9.9 9.4 - 12.3 fL [facility] NRBC Pct Auto 0.0 0.0 - 0.2 /100WBC [facility] NRBC Abs Auto 0.000 0.0 - 0.012 X10*3/uL [facility] Blood Venous blood specimen / Unknown 01/20/2025 3:12 PM EDT 01/20/2025 4:11 PM EDT Molly Yost MD LAB BLOOD ORDERAB LES Final Result [facility] [address] [place] [phone] * TSH (01/20/2025 3:12 PM EDT) Thyroid Stimulating Hormone 3.33 0.32 - 4.0 uIU/mL [facility] Comment:Note: A sustained TS H level above 2.5 uIU/mL may warrant further investigation. TSH 3rd Generation ([facility]) Blood Venous blood specimen / Unknown 01/20/2025 3:12 PM EDT 01/20/2025 4:09 PM EDT us Molly Yost MD LAB BLOOD ORDERAB LES Final Result [facility] [address] [place] [address] [phone] * T4, Free (01/20/2025 3:12 PM EDT) Free T4 (Free Thyroxine) 0.98 0.71 - 1.85 ng/dL [facility] Blood Venous blood specimen / Unknown 01/20/2025 3:12 PM EDT 01/20/2025 4:09 PM EDT us Molly Yost MD LAB BLOOD ORDERAB LES Final Result Performing Organization Address City/[facility]/ZIP Co de Phone Number [facility] [address] [place] [address] [phone] * Hemoglobin A1c (01/20/2025 3:12 PM EDT) Hemoglobin A1c 5.6 <6.0 % [facility] Comment:Hemoglobin A1C Refer ence Range Adults: 4.8 - 6.0 % Non diabetic: < 6.0 % Goal: < 7.0 %Additional Action Suggested: > 8.0 %Note: Hemoglobin A1c results are invalid for patients with abnormal amounts of HbF. Blood transfusions may impact the HbA1c concentration in the patient sample. Estimated Average Glucose 114 mg/dL [facility] Comment:eAG = Estimated ave rage glucose which is %A1C expressed asaverage glucose, using the formula of the M1L-IoizblrMezfkog Glucose study (ADAG), Diabetes Care, Vol.31,#8,Apr. 2007 Blood Venous blood specimen / Unknown 01/20/2025 3:12 PM EDT 01/20/2025 4:11 PM EDT us Molly Yost MD LAB BLOOD ORDERAB LES Final Result Performing Organization Address City/[facility]/ZIP Co de Phone Number [facility] [address] [place] [address] [phone] * (ABNORMAL) Lipid Panel, Standard (01/20/2025 3:12 PM EDT) Triglycerides 84 <150 mg/dL [facility] Comment:Desirable Triglyceri de: less than 150 mg/dLBorderline High Triglyceride 150-199 mg/dLHigh Triglyceride: 200-499 mg/dLVery High Triglyceride: greater than or equal to 5OO mg/dL Cholesterol 210(H) <200 mg/dL [facility] Comment:Desirable Cholestero l: less than 200 mg/dLBorderline High Cholesterol: 200-239 mg/dLHigh Cholesterol: greater than 239 mg/dL LDL Cholesterol Calculated 145(H) <100 mg/dL [facility] Comment:Desirable LDL: less than 100 mg/dLNear Optimal/Above Optimal LDL: 110- 129 mg/dLBorderline High LDL: 130-159 mg/dLHigh LDL: 160-189 mg/dLVery High LDL: greater than or equal to 190 mg/dL HDL Cholesterol 49 >40 mg/dL [facility] Comment:Desirable HDL: great er than 40 mg/dL Note: This HDL assay may give artificially low results in patients with liver disease. Blood Venous blood specimen / Unknown 01/20/2025 3:12 PM EDT 01/20/2025 4:09 PM EDT us Molly Yost MD LAB BLOOD ORDERAB LES Final Result [facility] [address] [place] [address] [phone] * (ABNORMAL) Comprehensive Metabolic Panel (01/20/2025 3:12 PM EDT) Sodium 138 135 - 145 mmol/L [facility] Potassium 3.9 3.3 - 5.1 mmol/L [facility] Chloride 105 96 - 108 mmol/L [facility] Carbon Dioxide 28 22 - 29 mmol/L [facility] Anion Gap 9(L) 12 - 20 [facility] Urea Nitrogen (BUN) 17(H) 9 - 16 mg/dL [facility] Creatinine, Serum 0.70 0.5 - 1.4 mg/dL [facility] Estimated Glomerular Filt Rate >60 [facility] Comment:Chronic Kidney Disea se: Estimated GFR < 60 mL/min/1.77m6Uxeyge Kidney Disease: Estimated GFR < 15 mL/min/1.73m2 Glucose 94 60 - 115 mg/dL [facility] Calcium 9.5 8.4 - 10.2 mg/dL [facility] Bilirubin, Total 0.5 0.0 - 1.0 mg/dL [facility] Aspartate Amino Transferase 24 5 - 31 U/L [facility] Alanine Aminotransferase 19 0 - 31 U/L [facility] Total Protein 7.6 6.5 - 8.0 g/dL [facility] Albumin Level 4.5 3.5 - 5.0 g/dL [facility] Alkaline Phosphatase 54 39 - 117 U/L [facility] Blood Venous blood specimen / Unknown 01/20/2025 3:12 PM EDT 01/20/2025 4:09 PM EDT us Molly Yost MD LAB BLOOD ORDERAB LES Final Result [facility] [address] [facility] [place] [phone] * BI Mammogram Screening Tomosynthesis Bilateral (02/26/2024 3:50 PM EDT) Anatomical Region Laterality Modality Breast Bilateral Mammography 02/26/2024 3:50 PM EDT Narrative 03/27/2024 9:04 AM EDT ? [facility] [place] ? [address] ?[place] [address] ? Mammography Report ? Signed ? Patient: Sen Thillet,Cindy ?MR# ?? : [id number] ? : 1975 ?Acct:[id number] ? Age/Sex: 48 / F ?ADM Date: 06/12/24 ? Loc: HO.MAMMO ? Attending Dr: Molly Yost MD ? Ordering Physician: Molly Narayan MD ?Re ?? sults: 1Negative ? Date of Service: 02/26/24 ?Follow Up: 1 Year From Orig ?? inal Mammogram ? Procedure(s): MM tomosynthesis screening BI ?? Accession Number(s): [id number] ? cc: Molly Narayan MD ? EXAMINATION: ?? MM SCREENING DIGITAL BREAST TOMOSYNTHESIS, BILATERAL ? CLINICAL INFORMATION: ? Screening. Asymptomatic. ? COMPARISON: ?? Mammography: This study is compared with prior exams dating back to ?? 2018. ? TECHNIQUE: ?? Digital breast tomosynthesis is [...] Marianna Dunham MD in OV> ? 03/27/24 09 ? DD/ 1550 ? TD/TT: ? Farm Boss: ? Procedure Note Adina Raman - 03/27/2024 [facility] [address] [place], [place] [address] Mammography Report Signed Patient: Misha Mays# : [id number] : 1975Acct:[id number] Age/Sex: 48 / FADM Date: 02/26/24 Loc: HO.MAMMO Attending Dr: Molly Yost MD Ordering Physician: Molly Narayan sults: 1Negative Date of Service: 02/26/24Follow Up: 1 Year From Orig inal Mammogram Procedure(s): MM tomosynthesis screening BI Accession Number(s): [id number] cc: Molly Narayan MD EXAMINATION: MM SCREENING [...] in OV> 03/27/24 0900 DD/ 1550 TD/TT: Farm Boss: us Molly Yost MD IMG BI PROCEDURES Final Result * HPV mRNA E6/E7 w/Reflex to HPV Genotypes 16, 18/45 (06/26/2023 11:25 AM EDT) HPV nRNA E6/E7 Not Detected Not Detected [facility] Comment:Methodology: Transcr iption-Mediated AmplificationThis assay detects E6/E7 viral messenger RNA (mRNA) from 14high-risk HPV types (16,18,31,33,35,39,45,51,52,56,58,59,66,68).Cervical sources are required for HPV testing.If a vaginal source from a patient who has had atotal hysterectomy with removal of cervix wassubmitted, please contact the testing laboratoryfor alternative testing options.For additional information, please refer tohttp://[email or web address]/faq/[email or web address](This link if provided for information/educational purposes only.)THIS TEST WAS PERFORMED AT:[facility] [place] [phone] WALLACE MD HPV mRNA E6/E7 [facility] HPV 16 RNA [facility] HPV 18/45 RNA [facility] 06/26/2023 11:2 5 AM EDT 06/27/2023 7:20 AM EDT us Diogo Corrales [facility] CYTOLOGY ORDERABLES F inal Result [facility] [address] [place] [address] [phone] * Pap Smear (06/26/2023 11:25 AM EDT) 06/26/2023 11:2 5 AM EDT 06/27/2023 7:20 AM EDT Narrative [facility] - 07/01/2023 8:45 AM EDT ----- ------- Name: Cindy Mays ? Age/Sex: 47/F ? : 1975 Unit#: [id number] ?? Attend Dr: DIOGO CORRALES CNM ?Re06/26/23 ?Status: DEP REF ? Location: HO.HHCLNP ? Disch: ? ----- ------- SPEC : [id number] ?RECD: 06/27/23 ? STATUS: ??SOUT ? REQ NUM: [id number] ? DEONTE: 06/26/23 ? SUBM DR: DIOGO CORRALES CNM ? ENTERED: ??06/27/23 ?SP TYPE: Pap Smr ?OTHR DR: ? ORDERED: ??Pap Smear ? Interpretation ?? Satisfactory for evaluation. ?? Mild inflammation. ?? Negative for intraepithelial lesion or malignancy. ?HPV mRNA E6/E7: ?NOT DETECTED ? This assay detects E6/E7 viral messenger RNA (mRNA) from 14 high-risk HPV types (16, 18, ?? 31, 33, 35, 39, 45, 51, 52, 56, 58, 59, 66, 68) ?? HPV testing performed by [facility], [place], [place]. ??See reference laboratory ?? pion of the EMR for entire report. ?Clinical Information LMP: Unknown date Previous PAP test: 2019, WNL ? Material Received ?? ThinPrep-Vaginal/Cervical ----- ------- Signed (signature on file) TAMEKA Oreilly (ASCP) 07/01/23 0845 ? ----- ------- ? END OF REPORT ? us Diogo Corrales [facility] CYTOLOGY ORDERABLES F inal Result [facility] [address] [place] [phone] from Last 3 Months or Most Recently Relevant to Health Maintenance Insurance C3 [facility] F[facility] Care Teams Lab Support Technician Relationship Specialty Start Date End Date Molly Narayan MD [address] [place] [phone] PCP - General Internal Medicine 01/02/23
--- OUTSIDE RECORDS SUMMARY | 2025-01-24 10:56 | XMS_ITS | Encounter Summary ---
Author Organization [employer] Address [address] [place] [address] [place] [address] Care Team Providers Care Bobbin Stripper Name Role Phone Molly Narayan MD Primary Care Pro vider Reason for Visit * Reason Comments Med Refill Encounter Details Date Type Department Care Team (Late st Contact Info) Description 05/19/2024 Refill [facility]S [address] [place], [place] [phone] Molly Narayan MD [address] [place] [address] Social History Tobacco Use Types Packs/Day Years [...] Description 02/18/2025 11:00 AM EDT Medication Management [address] [address] 03/25/2025 2:00 PM EDT Nurse Only [address] [address] 03/29/2025 1:00 PM EDT Office Visit [address] [address] Molly Narayan MD [address] [place] [phone] documented as of this encounter Visit Diagnoses Not on filedocumented in this encounter Additional Health Concerns Assessment Noted Time PHQ-9 Depression Total Score: 12 023 11:43 AM EDT documented as of this encounter Care Teams Bobbin Stripper Relationship Specialty Start Date End Date Molly Narayan MD [address] [place] [phone] PCP - General Internal Medicine 01/02/23 documented as of this encounter
--- OUTSIDE RECORDS SUMMARY | 2025-01-24 10:56 | XMS_ITS | Encounter Summary ---
Author Organization [employer] Address [address] [facility] 7t [place] [address] Care Team Providers Care Reclamation Supervisor Name Role Phone Al Canela Primary Care Provider Unavail able Molly Narayan MD Primary Care Pro vider Reason for Visit * Reason Onset Date Comments triage 10/05/2022 Encounter Details Date Type Department Care Team ([facility] st Contact Info) Description 10/05/2022 Telephone [facility] MEDICINE [address] [place], [place] [phone] Al Canela AGNP triage Social History Tobacco [...] PM EST Attempted to contact Pt with [facility] Professor ID [id number], left message to call [facility] * Telephone Encounter - Ibis Pederson [...] accepted this outcome Please contact pt at [phone] Iraqi Speaker. documented in this encounter Plan of Treatment Upcoming Encounters Date Type Department Care Team (Late st Contact Info) Description 02/18/2025 11:00 AM EDT Medication Management [address] [address] 03/25/2025 2:00 PM EDT Nurse Only [address] [address] 03/29/2025 1:00 PM EDT Office Visit [address] [address] Molly Narayan MD [address] [place] [address] documented as of this encounter Visit Diagnoses Not on filedocumented in this encounter Care Teams Reclamation Supervisor Relationship Specialty Start Date End Date Al Canela AGNP PCP - General Family Medicine 09/14/22 01/01/23 Molly Narayan MD [address] [place] [address] PCP - General Internal Medicine 01/02/23 documented as of this encounter
--- OUTSIDE RECORDS SUMMARY | 2025-01-24 10:56 | XMS_ITS | Clinical Summary ---
Author Organization [facility] it Address [address] [place] [address] Care Team Providers Care Maintenance Leader Name Role Phone Unavailable Primary Care Provider Unavailabl e Social History Tobacco Use Types Packs/Day Years Used Date Smoking Tobacco: Never Assessed Comments Unknown Sex and Gender Information Value Date Recorded Sex Assigned at Not on file Legal Sex Female 6:18 PM EST Gender Identity Not on file Sexual Orientation Not on file Plan of Treatment Health Maintenance Due Date Last Done Comments Breast Cancer Screening 1973 DTaP,Tdap,and Td Vaccines (1 - Tdap) 1992 Hepatitis B Vaccines (1 of 3 - 19+ 3-dose series) 1992 Cervical Cancer Screening: P ap Smear 1994 Colorectal Cancer Screening: Colonoscopy 08/18/2022 Depression Screening 08/18/2022 HIV Screening 08/18/2022 Hepatitis C Screening 08/18/2022 Social Influencers of Health Screening 08/18/2022 Pneumococcal Vaccine: 50+ Ye ars (1 of 1 - PCV) 12/31/2023 Zoster Vaccines (1 of 2) 12/31/2023 COVID-19 Vaccine ( - 2023-2 5 season) 2024 Influenza Vaccine (Season Ended) 2025 HIB Vaccines Aged Out No longer eligi ble based on patient's age to complete this topic HPV Vaccines Aged Out No longer eligi ble based on patient's age to complete this topic Hepatitis A Vaccines Aged Out No long er eligible based on patient's age to complete this topic IPV Vaccines Aged Out No longer eligi ble based on patient's age to complete this topic MMR Vaccines Aged Out No longer eligi ble based on patient's age to complete this topic Meningococcal ACWY Vaccine Aged Out N o longer eligible based on patient's age to complete this topic Meningococcal B Vaccine Aged Out No l onger eligible based on patient's age to complete this topic Pneumococcal Vaccine: Pediat rics (0 to 5 Years) and At-Risk Patients (6 to 64 Years) Aged Out No longer eligible b ased on patient's age to complete this topic RSV Immunization Patients Un aurelia 20 months Aged Out No longer eligible b ased on patient's age to complete this topic Varicella Vaccines Aged Out No longer eligible based on patient's age to complete this topic
--- OUTSIDE RECORDS SUMMARY | 2025-01-24 10:56 | XMS_ITS | Encounter Summary ---
Author Organization [employer] Address [address] [facility] 7t [place] [address] Care Team Providers Care Letter Of Credit Clerk Name Role Phone Molly Narayan MD Primary Care Pro vider Reason for Visit * Reason Comments Med Refill Encounter Details Date Type Department Care Team (Late st Contact Info) Description 01/11/[address] [facility] MEDICINE 230 [place], [place] [phone] Renee Patel MD 230 [place], [place] [phone] Social History Tobacco Use Types Packs/Day Years [...] Description 02/18/2025 11:00 AM EDT Medication Management [address] [address] 03/25/2025 2:00 PM EDT Nurse Only [address] [address] 03/29/2025 1:00 PM EDT Office Visit [address] [address] Molly Narayan MD [address] [place] [address] documented as of this encounter Visit Diagnoses Not on filedocumented in this encounter Additional Health Concerns Assessment Noted Time PHQ-9 Depression Total Score: 16 024 11:50 AM EDT documented as of this encounter Care Teams Letter Of Credit Clerk Relationship Specialty Start Date End Date Molly Narayan MD [address] [place] [address] PCP - General Internal Medicine 01/02/23 documented as of this encounter
--- OUTSIDE RECORDS SUMMARY | 2025-01-24 10:57 | XMS_ITS | Encounter Summary ---
Author Organization [email or web address] Address [address] [place] [address] [place] [address] Care Team Providers Care Director Smb Sales Name Role Phone Molly Narayan MD Primary Care Pro vider Reason for Visit * Reason Comments Med Refill Encounter Details Date Type Department Care Team (Late st Contact Info) Description 10/25/2023 Refill [facility] MEDICINE [address] [place], [place] [phone] Molly Narayan MD 230 [place] [address] Social History Tobacco Use Types Packs/Day Years [...] Description 02/18/2025 11:00 AM EDT Medication Management [address] [address] 03/25/2025 2:00 PM EDT Nurse Only [address] [address] 03/29/2025 1:00 PM EDT Office Visit [address] [address] Molly Narayan MD [address] [place] [address] documented as of this encounter Visit Diagnoses Not on filedocumented in this encounter Additional Health Concerns Assessment Noted Time PHQ-9 Depression Total Score: 12 023 11:43 AM EDT documented as of this encounter Care Teams Director Smb Sales Relationship Specialty Start Date End Date Molly Narayan MD [address] [place] [address] PCP - General Internal Medicine 01/02/23 documented as of this encounter
--- OUTSIDE RECORDS SUMMARY | 2025-01-24 10:57 | XMS_ITS | Encounter Summary ---
Author Organization [employer] Address 75 [facility] 7t [place] [address] Care Team Providers Care Cane Flume Watchman Name Role Phone Molly Narayan MD Primary Care Pro vider Reason for Visit * Reason Onset Date Comments DME waiting for signature 07/06/2024 Encounter Details Date Type Department Care Team ([facility] st Contact Info) Description 07/06/2024 Telephone [facility] MEDICINE 230 [place], [place] [phone] Alea Jarquin MA DME waiting for signature [...] and sent to PCP for signature via [employer]. Once signed, will fax to POS andsent to scan. * Telephone Encounter - Summer Hernandez RN - 01/19/2025 2:13 PM EDT Spoke to PCP in office who stated that the pt doesn't yet have right wrist brace even though DME order placed 07/06/2024. Per note below, was sent via [employer]. senior sales assistant checked on status of wrist brace online however unable to find record. Will ask DME specialists for assistance infinding record or re submitting as appropriate. * Telephone Encounter - Alea Jarquin MA - 07/06/2024 12:55 PM EDT DME -Plaster Form Maker made order in [employer] and awaiting signature by . * Telephone Encounter - Alea Jarquin MA - 07/06/2024 12:55 PM EDT ----- Message from Nurse Marcelle Gomez sent at 07/03/2024 11:24 AM EDT ----- ----- Message ----- From: Molly Yost MD Sent: 07/03/2024 11:22 AM EDT To: [facility] Team Nurses Please can you help pt getting wrist brace of right hand for CTS thanks documented in this encounter Plan of Treatment Upcoming Encounters Date Type Department Care Team (Late st Contact Info) Description 02/18/2025 11:00 AM EDT Medication Management [address] [address] 03/25/2025 2:00 PM EDT Nurse Only [address] [address] 03/29/2025 1:00 PM EDT Office Visit [address] [address] Molly Narayan MD [address] [place] [address] documented as of this encounter Visit Diagnoses Not on filedocumented in this encounter Additional Health Concerns Assessment Noted Time PHQ-9 Depression Total Score: 16 024 11:50 AM EDT documented as of this encounter Care Teams Cane Flume Watchman Relationship Specialty Start Date End Date Molly Narayan MD [address] [place] [address] PCP - General Internal Medicine 01/02/23 documented as of this encounter
--- OUTSIDE RECORDS SUMMARY | 2025-01-24 10:57 | XMS_ITS | Encounter Summary ---
Author Organization [employer] Address [address] [place] [address] [place] [address] Care Team Providers Care Materials Scheduler Name Role Phone Molly Narayan MD Primary Care Pro vider Reason for Visit * Reason Comments Med Refill Encounter Details Date Type Department Care Team (Late st Contact Info) Description 09/23/2023 Refill [facility] MEDICINE 230 [place], [place] [phone] Molly Narayan MD 230 [place] [address] Social History Tobacco Use Types Packs/Day Years [...] Description 02/18/2025 11:00 AM EDT Medication Management [address] [address] 03/25/2025 2:00 PM EDT Nurse Only [address] [address] 03/29/2025 1:00 PM EDT Office Visit [address] [address] Molly Narayan MD [address] [place] [address] documented as of this encounter Visit Diagnoses Not on filedocumented in this encounter Additional Health Concerns Assessment Noted Time PHQ-9 Depression Total Score: 12 023 11:43 AM EDT documented as of this encounter Care Teams Materials Scheduler Relationship Specialty Start Date End Date Molly Narayan MD [address] [place] [address] PCP - General Internal Medicine 01/02/23 documented as of this encounter
--- OUTSIDE RECORDS SUMMARY | 2025-01-24 10:57 | XMS_ITS | Encounter Summary ---
Author Organization [employer] Address [address] [place] [address] [place] [address] Care Team Providers Care Food Clerk Name Role Phone Molly Narayan MD Primary Care Pro vider Reason for Visit * Reason Comments Med Refill Encounter Details Date Type Department Care Team ([facility] st Contact Info) Description 07/03/2023 Refill [facility] MEDICINE 230 [place], [place] [phone] Molly Narayan MD 230 [place] [address] Social History Tobacco Use Types Packs/Day Years [...] Description 02/18/2025 11:00 AM EDT Medication Management [address] [address] 03/25/2025 2:00 PM EDT Nurse Only [address] [address] 03/29/2025 1:00 PM EDT Office Visit [address] [address] Molly Narayan MD [address] [place] [address] documented as of this encounter Visit Diagnoses Not on filedocumented in this encounter Additional Health Concerns Assessment Noted Time PHQ-9 Depression Total Score: 12 023 11:43 AM EDT documented as of this encounter Care Teams Food Clerk Relationship Specialty Start Date End Date Molly Narayan MD [address] [place] [id number] PCP - General Internal Medicine 01/02/23 documented as of this encounter
--- OUTSIDE RECORDS SUMMARY | 2025-01-24 10:57 | XMS_ITS | Encounter Summary ---
Author Organization [employer] Address [address] [place] [address] [place] [address] Care Team Providers Care Data Entry Operator Name Role Phone Molly Narayan MD Primary Care Pro vider Reason for Visit * Reason Comments Med Refill Encounter Details Date Type Department Care Team (Late st Contact Info) Description 09/01/2023 Refill [facility] MEDICINE 230 [place], [place] [phone] Molly Narayan MD 230 [place] [address] Social History Tobacco Use Types Packs/Day Years [...] Description 02/18/2025 11:00 AM EDT Medication Management [address] [address] 03/25/2025 2:00 PM EDT Nurse Only [address] [address] 03/29/2025 1:00 PM EDT Office Visit [address] [address] Molly Narayan MD [address] [place] [address] documented as of this encounter Visit Diagnoses Not on filedocumented in this encounter Additional Health Concerns Assessment Noted Time PHQ-9 Depression Total Score: 12 023 11:43 AM EDT documented as of this encounter Care Teams Data Entry Operator Relationship Specialty Start Date End Date Molly Narayan MD [address] [place] [address] PCP - General Internal Medicine 01/02/23 documented as of this encounter
--- OUTSIDE RECORDS SUMMARY | 2025-01-24 10:57 | XMS_ITS | Encounter Summary ---
Author Organization [facility] Address [address] [place] [address] [place] [address] Care Team Providers Care Driver License Reviewing Officer Name Role Phone Molly Narayan MD Primary Care Pro vider Reason for Visit * Reason Comments Med Refill Encounter Details Date Type Department Care Team (Late st Contact Info) Description 09/21/[address] [facility] MEDICINE 230 [place], [place] [phone] Molly Narayan MD 230 [place] [address] Social History Tobacco Use Types Packs/Day Years [...] Description 02/18/2025 11:00 AM EDT Medication Management [address] [address] 03/25/2025 2:00 PM EDT Nurse Only [address] [address] 03/29/2025 1:00 PM EDT Office Visit [address] [address] Molly Narayan MD [address] [place] [address] documented as of this encounter Visit Diagnoses Not on filedocumented in this encounter Additional Health Concerns Assessment Noted Time PHQ-9 Depression Total Score: 12 023 11:43 AM EDT documented as of this encounter Care Teams Driver License Reviewing Officer Relationship Specialty Start Date End Date Molly Narayan MD [address] [place] [address] PCP - General Internal Medicine 01/02/23 documented as of this encounter
== END 2025-01-24 10:54 | disposition home or self-care (01) ==
LOC: HO.MRI 10:53
PROVIDERS: Visit Provider Student in an Organized Health Care Education/Training Program
DX: R41.3 Other amnesia (principal)
CPT/HCPCS: 70551

== ENCOUNTER → 2025-01-24 11:02 | Outpatient (BNV) | payer MEDICAID, SELFPAY | PROVIDERS: Visit Provider Radiology Diagnostic Radiology | DX: C17.3 Meckel's diverticulum, malignant (principal) | CPT/HCPCS: 70551 ==

== ENCOUNTER 2025-07-20 14:33 | Outpatient (REF) | payer MEDICAID, SELFPAY ==
--- OUTSIDE RECORDS SUMMARY | 2025-07-20 17:36 | XMS_ITS ---
Author Organization [employer] Address [address] [place] [address] 7 [place] [address] Care Team Providers Care Metal Bonding Press Operator Name Role Phone Molly Narayan MD Primary Care Pro vider Carlee Thomas RN Unavailable [phone] Freda Saldivar Unavailable CM Complex Status:Identified (Enrolling) Start date:07/07/2025 Enrollment reason:ADT Feed Overview Provider Referral- pt with poor memory needs helps w appts Case Team Name Relationship Phone Carlee Thomas RN(Responsible Staff) Registered Nurse Continued Care and Services Coordination
--- OUTSIDE RECORDS SUMMARY | 2025-07-20 17:36 | XMS_ITS | Encounter Summary ---
Author Organization [employer] Address 75 [facility] 7t [place] [address] Care Team Providers Care Meter Reader Name Role Phone Al Canela Primary Care Provider Unavail able Molly Narayan MD Primary Care Pro vider Carlee Thomas RN Unavailable [phone] Freda Saldivar Unavailable Reason for Visit * Reason Onset Date Comments triage 12/28/2022 Encounter Details Date Type Department Care Team (Late st Contact Info) Description 12/28/2022 Telephone [facility] MEDICINE 230 [place], [place] [phone] Al Canela AGNP triage Social History Tobacco [...] 12/28/2022 1:11 PM EDT Triage call with [email or web address] Toolroom Helper ID [id number] Pt reports waking up last 2 nights [...] area. Pt is advised to come to [facility] to be seen today and Pt agrees. [...] become worse * Telephone Encounter - Nadia Azucena - 12/28/2022 12:17 PM EDT Symptom: Anxiety or Panic Attack Outcome: Schedule an appointment to be seen within 3 days Reason: No high acuity concerns reported by caller The caller accepted this outcome documented in this encounter Plan of Treatment Upcoming Encounters Date Type Department Care Team (Late st Contact Info) Description 07/29/2025 1:30 PM EST Office Visit [facility] OPTOMETRY [address] [place], [place] [phone] Renae Jean, TAMMIE 230 [place], [place] [phone] documented as of this encounter Visit Diagnoses Not on filedocumented in this encounter Care Teams Meter Reader Relationship Specialty Start Date End Date Al Canela AGNP PCP - General Family Medicine 09/14/22 01/01/23 Molly Narayan MD 230 [place], [place] [phone] PCP - General Internal Medicine 01/02/23 Carlee Thomas RN 230 [place], [place] [phone] Registered Nurse Family Medicine 07/07/25 Freda Saldivar 07/07/25 documented as of this encounter
--- OUTSIDE RECORDS SUMMARY | 2025-07-20 17:36 | XMS_ITS | Encounter Summary ---
Author Organization [employer] Address [address] [place] [address] 7 [place] [address] Care Team Providers Care Undercover Agent Name Role Phone Molly Narayan MD Primary Care Pro vider Carlee Thomas RN Unavailable [phone] Freda Saldivar Unavailable Reason for Visit * Reason Comments Med Refill Encounter Details Date Type Department Care Team (Late st Contact Info) Description 10/25/2023 Refill [facility] MEDICINE 230 [place], [place] [phone] Molly Narayan MD 230 [place], [place] [phone] Social History Tobacco Use Types Packs/Day Years Used Date Smoking Tobacco: Never Passive Smoke Exposure: Never Smokeless Tobacco: Never Alcohol Use Standard Drinks/Week Comments Not Currently 0 (1 standard drink = 0.6 oz pur e alcohol) Depression Answer Date Recorded Patient Health Questionnaire-9 Score 12 04/10/2023 Housing Stability Answer Date Recorded What is your housing situation today? I have amy tirado 07/01/[address] you [...] Description 07/29/2025 1:30 PM EST Office Visit [facility] OPTOMETRY [address] [place], [place] [phone] Renae Jean, OD 230 [place] [address] documented as of this encounter Visit Diagnoses Not on filedocumented in this encounter Additional Health Concerns Assessment Noted Time PHQ-9 Depression Total Score: 12 023 11:43 AM EDT documented as of this encounter Care Teams Undercover Agent Relationship Specialty Start Date End Date Molly Narayan MD 230 [place] [address] PCP - General Internal Medicine 01/02/23 Carlee Thomas RN 230 [place] [address] Registered Nurse Family Medicine 07/07/25 Freda Saldivar 07/07/25 documented as of this encounter
--- OUTSIDE RECORDS SUMMARY | 2025-07-20 17:36 | XMS_ITS | Encounter Summary ---
Author Organization [employer] Address 75 [facility] 7t [place] [address] Care Team Providers Care Ward Service Supervisor Name Role Phone Al Canela Primary Care Provider Unavail able Molly Narayan MD Primary Care Pro vider Carlee Thomas RN Unavailable [phone] Freda Saldivar Unavailable Reason for Visit * Reason Onset Date Comments triage 10/05/2022 Encounter Details Date Type Department Care Team (Late st Contact Info) Description 10/05/2022 Telephone [facility] MEDICINE 230 [place], [place] [phone] Al Canela AGNP triage Social History Tobacco [...] PM EST Attempted to contact Pt with [place] [employer] C[employer] ID [id number], left message to call [facility] * Telephone Encounter - Aysharadhavalentina Pederson Tyrone - 10/05/2022 4:29 PM EST Symptoms: Body [...] accepted this outcome Please contact pt at [phone] Malay Speaker. documented in this encounter Plan of Treatment Upcoming Encounters Date Type Department Care Team (Late st Contact Info) Description 07/29/2025 1:30 PM EST Office Visit [facility] OPTOMETRY [address] [place], [place] [phone] Renae Jean, TAMMIE 230 [place] [address] documented as of this encounter Visit Diagnoses Not on filedocumented in this encounter Care Teams Ward Service Supervisor Relationship Specialty Start Date End Date Al Canela AGNP PCP - General Family Medicine 09/14/22 01/01/23 Molly Narayan MD 230 [place], [place] [phone] PCP - General Internal Medicine 01/02/23 Carlee Thomas RN 230 [place], [place] [phone] Registered Nurse Family Medicine 07/07/25 Freda Saldivar 07/07/25 documented as of this encounter
--- OUTSIDE RECORDS SUMMARY | 2025-07-20 17:36 | XMS_ITS ---
Author Organization [employer] Address [address] [place] [address] 7 [place] [address] Care Team Providers Care Customer Associate Name Role Phone Molly Narayan MD Primary Care Pro vider Carlee Thomas RN Unavailable [phone] Freda Saldivar Unavailable CHW Complex Status:Identified (Enrolling) Start date:07/07/2025 Enrollment reason:Referred by provider Overview Provider Referral- pt with poor memory needs helps w appts. Please outreach to patient. Case Team Name Relationship Phone Freda Saldivar(Responsible Staff) Continued Care and Services Coordination
--- OUTSIDE RECORDS SUMMARY | 2025-07-20 17:36 | XMS_ITS | Clinical Summary ---
Author Organization [employer] Address [address] [facility] 7t [place] [address] Care Team Providers Care Mechanical Integrity Specialist Name Role Phone Molly Narayan MD Primary Care Pro vider Carlee Thomas RN Unavailable [phone] Freda Saldivar Unavailable Allergies No known active allergies Medications * This document contains information received from the source organization and may not represent a complete record from that organization. hydrOXYzine HCl (Atarax) 10 MG tablet TAKE 1 TABLET BY MOUTH EVERY 8 HOURS IF NEEDED FOR ITCHING OR ANXIETY. 30 tablet 3 4 Active cloNIDine (Catapres) 0.1 MG tabletIndications: Anxiety TAKE 1 TABLET BY MOUTH EVERYDAY AT BEDTIME 90 tablet 4 Active valACYclovir (Valtrex) 500 MG tablet TAKE 1 TABLET BY MOUTH 2 TIMES DAILY FOR 3 DAYS 6 tablet 1 4 Active DULoxetine (Cymbalta) [address] capsule TAKE 1 CAPSULE BY MOUTH EVERY DAY DO NOT CRUSH OR CHEW 30 capsule 1 5 Active FLUoxetine (PROzac) 20 MG tablet TAKE 1 TABLET BY MOUTH EVERY DAY IN THE MORNING 90 tablet 5 Active levothyroxine (Synthroid, Levoxyl) 25 MCG tabletIndications: Subclinical hypothyroidism TAKE 1 TABLET (25 MCG) BY MOUTH BEFORE BREAKFAST 90 tablet 1 5 02/23/20 26 Active Active Problems Problem Noted Date Diagnosed Date Swallowing problem 01/19/2025 Atypical chest pain 07/04/2024 Helicobacter pylori (H. pylori) infection 2023 Overview (01/27/2024): Urea breath test on 01/20/24 at [facility] is POS. Rx initially with tetracycline + Flagyl (GI office)--> Diarrhea/vulvovaginitis on 01/27/24, then started on Amox/clarithromycin Memory loss 11/12/2023 CTS (carpal tunnel syndrome) 11/12/2023 Moderate episode of recurren t major depressive disorder (CMS/HCC) 07/26/2023 Assessment & Plan (07/30/2023 3:20 PM [...] with services with [facility] for individual therapy. Discussed [facility]. At this time Cindy Lynn meets criteria for Visit Diagnoses: Problem List Items Addressed This Visit Other Anxiety Moderate episode of recurrent major depressive disorder (CMS/HCC) Family problems Patient ready to address current needs Yes Strengths include readiness to take control and engage in services PLAN: 1. Follow up with [facility]: Recommended for follow-up: as needed 2. Patient goal is to maintain a stable mental health and practice self-care 3. Behavioral Recommendations a. Continue to attend individual therapy sessions with BHN b. Utilize coping mechanisms to decrease symptoms c. Be added to wait list for psychopharmacology at [facility] Family problems 07/26/2023 Assessment & Plan [...] continue with services with [facility] at [facility] for individual therapy. Discussed adding patient to wait [facility]. At this time Cindy Lynn meets criteria for Visit Diagnoses: Problem List Items Addressed This Visit Other Anxiety Moderate episode of recurrent major depressive disorder (CMS/HCC) Family problems Patient ready to address current needs Yes Strengths include readiness to take control and engage in services PLAN: 1. Follow up with [facility]: Recommended for follow-up: as needed 2. Patient goal is to maintain a stable mental health and practice self-care 3. Behavioral Recommendations a. Continue to attend individual therapy sessions with [facility] b. Utilize coping mechanisms to decrease symptoms c. Be added to wait list for psychopharmacology at [facility] Venous insufficiency of both lower extremities [...] of referral -vaccines: s/p hep Bx3-immune, covid 36t4-Cpxetmcs x1, tdap 2022 -decrease vision referred to ophthalmology already-pd to get apt -noted to be forgetful -will shantelleal w MOCA test at next apt in [...] -referred today -vaccines: s/p hep Bx3, covid 82c7-Rczukixo today, tdap today -labs x annual exam [...] 60%,normal -cardiac stress test 2015: Indeterminate test Liver cyst 04/10/2023 Assessment & [...] in services PLAN: 1. Follow up with [facility]: Recommended for follow-up: as needed 2. Patient goal is to maintain a stable mental health and practice self-care 3. Behavioral Recommendations a. Continue to attend individual therapy sessions with N b. Utilize coping mechanisms to decrease symptoms c. Be added to wait list for psychopharmacology at [facility] Resolved Problems Problem Noted Date Diagnosed Date Resolved Date Facial swelling 01/19/2025 07/06/2025 Herpetic miranda 07/28/2023 11/12/2023 Vitamin D deficiency 05/23/2018 023 Depressive disorder 02/03/2013 04/10/20 23 Encounters Date Type Department Care Team Description 07/12/[address] [address] Molly Narayan MD Results 07/07/2025 Patient Outreach [address] [address] Molly Narayan MD Care Coordination (C3 -W Freda Saldivar chart review) 07/07/2025 Patient Outreach [address] [address] Molly Narayan MD Care Management (C3 -CHART REVIEW/) 07/07/2025 Patient Outreach [address] [address] Molly Narayan MD 07/06/2025 10:45 AM EDT Office Visit [address] [address] Molly Narayan MD Screening for colon cancer (Primary Dx); Memory loss; Hyperlipidemia, unspecified hyperlipidemia type; Hypothyroidism, unspecified type; Health care maintenance; Swallowing problem; Anxiety; Moderate episode of recurrent major depressive disorder (CMS/HCC) (HCC) 07/06/2025 Orders Only [address] [address] Molly Narayan MD Health care maintenance (Primary Dx) 07/06/2025 Travel 07/05/[address] [address] Molly Narayan MD chartprep 06/29/2025 Patient Outreach [address] [address] Molly Narayan MD Care Coordination (W outreach for SDOH housing search-LVM ) 06/29/2025 Patient Outreach [address] [address] Molly Narayan MD Pre-visit Planning (SDOH Screening positive and Tobacco screening negative) 04/26/[address] [address] Molly Narayan MD oct recall from Last 3 Months Immunizations Immunization Administration Dates Next Due Hep B, adult 11/17/2009,01/20/2009,12/22/2008 Influenza injectable quadriv alent preservative free 07/26/2023 Influenza, IIV3, injectable 08/26/2014, 0 Pfizer Covid-19 Vaccine 12+ Bivalent 04/10/2023 TD (adult), 2 Lf tetanus tox oid, preservative free, adsorbed 11/17/2009 Tdap 04/10/2023 Zoster, Recombinant 07/06/2025,01/20/2025 Family History Medical History Relation Name Comments [...] housing situation today? I have amybeatris tirado 06/29/[address] you li ve. Do you have problems with any of the following? Pests such as bugs, ants, or mice 06/29/2025 Food Insecurity Answer Date Recorded Within the past 12 months, y ou worried that your food would run out before you got money to buy more: Never True 06/29/2025 Within the past 12 months,th e food [...] shut off services in your home? No 06/29/2025 Depression Answer Date Recorded Patient Health Questionnaire-2 [...] Sign Reading Time Taken Comments Blood Pressure 106/82 07/06/2025 11:27 AM EDT Pulse 81 07/06/2025 11:27 AM EDT Temperature 36.2 C (97.1 F) 07/06/2025 11:27 AM EDT Respiratory Rate 20 07/06/2025 11:27 AM EDT Oxygen Saturation 99% 07/06/2025 11:27 AM EDT Inhaled Oxygen Concentration - - Weight 62.9 kg (138 lb 9.6 oz) 07/06/2025 11:27 AM EDT Height 162.6 cm (5' 4 ) 07/06/2025 11:27 AM EDT Body Mass Index 23.79 07/06/2025 11:27 AM EDT Plan of Treatment Upcoming Encounters Date Type Department Care Team (Late st Contact Info) Description 07/29/2025 1:30 PM EST Office Visit [facility] OPTOMETRY [address] [place] [address] Ted, Renae, OD [address] [place] [address] Health Maintenance Due Date Last Done Comments CT Colonography 1975 Colonoscopy 1975 Colorectal Cancer Screening 1975 FIT DNA/Cologuard 1975 FIT 1975 FOBT 1975 Sigmoidoscopy 1975 Family Planning (PISQ) 1988 Hepatitis A Vaccines (1 of 2 - Risk 2-dose series) 1992 Pneumococcal Vaccine: 50+ Years (1 of 1 - PCV) 12/31/2023 Depression Monitoring 01/01/2025 07/03/2024, 10/18/2 024 COVID-19 Vaccine ( season) 2025 04/10/2023, 07/19/2022, 02/10/2021 Influenza Vaccine (#1) 2025 , 08/26/2014, 11/17/2009 Alcohol/Substance Use Screening 01/19/2026 01/19/2025 Disability Screening 01/19/2026 01/19/2025 Mammogram 02/25/2026 02/26/2024, 11/14, 11/08/2020, Additional history exists SDOH Screening 06/29/2026 06/29/2025 Tobacco Screening 07/06/2026 07/06/2025 Diabetes: Hemoglobin A1C 07/07/2026 025, 01/20/2025, 04/16/2023, Additional history exists Cervical Cancer Screening 06/26/2028 HPV/Cotest 06/26/2028 06/26/2023, 12/10/2018 Pap Smear 06/26/2028 06/26/2023 DTaP/Tdap/Td Vaccines (2 - Td or Tdap) 04/10/2033 04/10/2023, 11/17/2009 RSV Patients and Patients Aged 60 years or older (1 - 1-dose 75+ series) 2048 Hepatitis B Vaccines Completed 11/17/2009, 01/20/2009, 12/22/2008 HIV Screening Completed 01/20/2025, 04/16/2023 Hepatitis C Screening Completed 01/20/2025, 023 Zoster Vaccines Completed 07/06/2025, 01/20/2025 HIB Vaccines Aged Out No longer eligi [...] Procedure Name Priority Date/Time Associated Diagnosis Comments POCT GLYCATED HEMOGLOBIN, TOTAL Routine 07/07/2025 9:50 AM EDT Health care maintenance HEPATITIS C AB W/REFL TO HCV RNA, [...] Recently Relevant to Health Maintenance Results * (ABNORMAL) POCT Hgb A1c (07/07/2025 9:50 AM EDT) Hemoglobin A1C 5.8(A) 4.0 - 5.7 % QC Media Lot # [id number] Lot# Expiration Date 459 Blood 07/07/2025 9:50 AM EDT Molly Yost MD POINT OF CARE MIHIR T ENTER/EDIT ORDERABLES Final Result * Hepatitis C Antibody with Reflex to HCV, RNA, Quantitative, Real-Time PCR (01/20/2025 3:12 PM EDT) Hepatitis C Antibody Nonreactive Nonreactive [facility] Comment:Antibodies to HCV no t detected; does not exclude early acuteHCV infection. Blood Venous blood specimen / Unknown 01/20/2025 3:12 PM EDT 01/20/2025 4:09 PM EDT us Molly Yost MD LAB BLOOD ORDERAB LES Final Result Performing Organization Address [facility]/ZIP Co de Phone Number [facility] [address] [place] [phone] * HIV-1/2 Antigen and Antibodies, Fourth Generation, with Reflexes (01/20/2025 3:12 PM EDT) HIV AB/AG Nonreactive Nonreactive [facility] Comment:HIV-1 p24 Ag and/or HIV-1/HIV-2 Ab not detected.A test result that is nonreactive does not exclude thepossibility of exposure to or infection with HIV-1 and/orHIV-2. Nonreactive results in this assay for individualswith prior exposure to HIV-1 and/or HIV-2 may be due toantigen and antibody levels that are below the limit ofdetection of this assay.The Orlebar Brown HIV Ag/Ab Combo assay result andsupplemental assay results should be interpreted inconjunction with the patient's clinical presentation,history and other laboratory results. If the results areinconsistent with clinical evidence, additional testing issuggested to confirm the result. Blood Venous blood specimen / Unknown 01/20/2025 3:12 PM EDT 01/20/2025 4:09 PM EDT us Molly Yost MD LAB BLOOD ORDERAB LES Final Result Performing Organization Address [facility]/ZIP Co de Phone Number [facility] [address] [place] [phone] * BI Mammogram Screening Tomosynthesis Bilateral (02/26/2024 3:50 PM EDT) Anatomical Region Laterality Modality Breast Bilateral Mammography 02/26/2024 3:50 PM EDT Narrative 03/27/2024 9:04 AM EDT [facility] [address] [place] [address] Mammography Report Signed Patient: Cindy Mays MR# : [id number] : 1975 Acct:[id number] Age/Sex: 48 / F ADM Date: 02/26/24 Loc: [facility] Attending Dr: Molly Yost MD Ordering Physician: Mloly Narayan MD Re sults: 1Negative Date of Service: 02/26/24 Follow Up: 1 Year From Orig inal Mammogram Procedure(s): MM tomosynthesis screening BI Accession Number(s): [id number] cc: Molly Narayan MD EXAMINATION: MM SCREENING [...] in OV> 03/27/24 0900 DD/ 1550 TD/TT: Primary Care Md: Procedure Note Donotuseinterpreter, Image - 03/[facility]/2024 [facility] [address] [place] [address] Mammography Report Signed Patient: Misha Mays# : [id number] : 1975Acct:[id number] Age/Sex: 48 / FADM Date: 02/26/24 Loc: [facility] Attending Dr: Molly Yost MD Ordering Physician: Molly Narayan sults: 1Negative Date of Service: 02/26/24Follow Up: 1 Year From Orig inal Mammogram Procedure(s): MM tomosynthesis screening BI Accession Number(s): [id number] cc: Molly Narayan MD EXAMINATION: MM SCREENING [...] in OV> 03/27/24 0900 DD/ 1550 TD/TT: Primary Care Md: Molly Yost MD IMG BI PROCEDURES Final Result * HPV mRNA E6/E7 w/Reflex to HPV Genotypes 16, 18/45 (06/26/2023 11:25 AM EDT) HPV nRNA E6/E7 Not Detected Not Detected [facility] Comment:Methodology: Transcr iption-Mediated AmplificationThis assay detects E6/E7 viral messenger RNA (mRNA) from 14high-risk HPV types (16,18,31,33,35,39,45,51,52,56,58,59,66,68).Cervical sources are required for HPV testing.If a vaginal source from a patient who has had atotal hysterectomy with removal of cervix wassubmitted, please contact the testing laboratoryfor alternative testing options.For additional information, please refer [email or web address]/FUF404d5(This link if provided for information/educational purposes only.)THIS TEST WAS PERFORMED AT:[facility] [place] [phone] WALLACE MD HPV mRNA E6/E7 TNP [facility] HPV 16 RNA TNP [facility] HPV 18/45 [facility] 06/26/2023 11:2 5 AM EDT 06/27/2023 7:20 AM EDT Diogo Corrales CNM LAB CYTOLOGY ORDERABLES F inal Result [facility] [address] [place] [phone] [phone] * Pap Smear (06/26/2023 11:25 AM EDT) 06/26/2023 11:2 5 AM EDT 06/27/2023 7:20 AM EDT Narrative [facility] - 07/01/2023 8:45 AM EDT ----- ------- Name: Cindy Mays Age/Sex: 47/F : 1975 Unit#: [id number] Attend Dr: DIOGO CORRALES CNM Re06/26/23 Status: DEP [facility] Dis[facility] ----- ------- SPEC : [id number] RECD: 06/27/23 STATUS: SHITAL ROTH NUM: [id number] DEONTE: 06/26/[address] [facility] DR: DIOGO CORRALES CNM ENTERED: 06/27/23 SP TYPE: Pap Smr OT DR: ORDERED: Pap Smear Interpretation Satisfactory for evaluation. Mild inflammation. Negative for intraepithelial lesion or malignancy. HPV mRNA E6/E7: NOT DETECTED This assay detects E6/E7 viral messenger RNA (mRNA) from 14 high-risk HPV types (16, 18, 31, 33, 35, 39, 45, 51, 52, 56, 58, 59, 66, 68) HPV testing performed by [facility], [place], [place]. See reference laboratory pion of the EMR for entire report. Clinical Information LMP: Unknown date Previous PAP test: 2019, WNL Material Received ThinPrep-Vaginal/Cervical ----- ------- Signed (signature on file) TAMEKA Oreilly (ASCP) 07/01/23 0845 ----- ------- END OF REPORT Diogo Corrales CNM LAB CYTOLOGY ORDERABLES F inal Result [facility] [address] [place] [address] [phone] from Last 3 Months or Most Recently Relevant to Health Maintenance [place] [address] [place] [address] C3 Care Teams Mechanical Integrity Specialist Relationship Specialty Start Date End Date Molly Narayan MD [address] [place] [phone] PCP - General Internal Medicine 01/02/23 Carlee Thomas RN [address] [place] [phone] Registered Nurse Family Medicine 07/07/25 Freda Saldivar 07/07/25
--- OUTSIDE RECORDS SUMMARY | 2025-07-20 17:36 | XMS_ITS | Encounter Summary ---
Author Organization [employer] Address [address] [facility] 7 [place] [address] Care Team Providers Care Gospel Worker Name Role Phone Molly Narayan MD Primary Care Pro vider Carlee Thomas RN Unavailable [phone] Freda Saldivar Unavailable Reason for Visit * Reason Comments Med Refill Encounter Details Date Type Department Care Team (Late st Contact Info) Description 05/19/2024 Refill [facility] CHC MED & PEDS [address] [place] [address] Molly Narayan MD [address] [place] [address] Social History Tobacco Use Types Packs/Day Years Used Date Smoking Tobacco: Never Passive Smoke Exposure: Never Smokeless Tobacco: Never Alcohol Use Standard Drinks/Week Comments Not Currently 0 (1 standard drink = 0.6 oz pur e alcohol) Depression Answer Date Recorded Patient Health Questionnaire-9 Score 12 04/10/2023 Housing Stability Answer Date Recorded What is your housing situation today? I have amy tiardo 07/01/[address] you li [...] Description 07/29/2025 1:30 PM EST Office Visit [facility] OPTOMETRY [address] [place], [place] [phone] Renae Jean, OD [address] [place] [address] documented as of this encounter Visit Diagnoses Not on filedocumented in this encounter Additional Health Concerns Assessment Noted Time PHQ-9 Depression Total Score: 12 023 11:43 AM EDT documented as of this encounter Care Teams Gospel Worker Relationship Specialty Start Date End Date Molly Narayan MD [address] [place] [address] PCP - General Internal Medicine 01/02/23 Carlee Thomas RN [address] [place] [address] Registered Nurse Family Medicine 07/07/25 Freda Saldivar 07/07/25 documented as of this encounter
--- OUTSIDE RECORDS SUMMARY | 2025-07-20 17:36 | XMS_ITS | Encounter Summary ---
Author Organization [employer] Address [address] [place] [address] 7 [place] [address] Care Team Providers Care Boat Officer Name Role Phone Molly Narayan MD Primary Care Pro vider Carlee Thomas RN Unavailable [phone] Freda Saldivar Unavailable Reason for Visit * Reason Comments Med Refill Encounter Details Date Type Department Care Team (Late st Contact Info) Description 07/03/2023 Refill [facility] MEDICINE [address] [place], [place] [phone] Molly Narayan MD [address] [place], [place] [phone] Social History Tobacco Use Types Packs/Day Years [...] Description 07/29/2025 1:30 PM EST Office Visit [facility] OPTOMETRY [address] [place], [place] [phone] Renae Jean, OD [address] [place] [address] documented as of this encounter Visit Diagnoses Not on filedocumented in this encounter Additional Health Concerns Assessment Noted Time PHQ-9 Depression Total Score: 12 023 11:43 AM EDT documented as of this encounter Care Teams Boat Officer Relationship Specialty Start Date End Date Molly Narayan MD [address] [place] [address] PCP - General Internal Medicine 01/02/23 Carlee Thomas RN [address] [place] [address] Registered Nurse Family Medicine 07/07/25 Freda Saldivar 07/07/25 documented as of this encounter
--- OUTSIDE RECORDS SUMMARY | 2025-07-20 17:36 | XMS_ITS | Clinical Summary ---
Author Organization [facility] Address [address] [place], [place] [phone] Phone Care Team Providers Care Chief Controller Name Role Phone Pcp, Unknown Primary Care Provider Unavailabl e Allergies No known active allergies Active Problems Problem Noted Date Diagnosed Date Anxiety 09/02/2014 Overview (11/05/2014): Anxiety Depressive disorder 09/02/2014 Overview (11/05/2014): Depressive disorder Panic attack 09/02/2014 Overview (11/05/2014): Panic attack Social History Tobacco Use Types Packs/Day Years Used Date Smoking Tobacco: Never Assessed Comments Unknown Sex and Gender Information Value Date Recorded Sex Assigned at Not on file Legal Sex Female 12:55 PM EST Gender Identity Not on file Sexual Orientation Not on file Last Filed Vital Signs Vital Sign Reading Time Taken Comments Blood Pressure 108/70 09/02/2014 7:57 PM EST Pulse 60 09/02/2014 7:57 PM EST Temperature - - Respiratory Rate 18 09/02/2014 7:57 PM EST Oxygen Saturation - - Inhaled Oxygen Concentration - - Weight - - Height - - Body Mass Index - - Plan of Treatment Not on file Medical Devices Not on file Insurance [facility] [facility] [place] [place] [address] [facility] [employer] CAREPLUS O Member Subscriber Plan / Payer (Ef fective 2014-Present) Name:Compa Ricci Relation to Subscriber:Self Name:Compa Ricci Payer ID:[id number] Group ID:[id number] Type:Medicaid Address: [address] [place], [place] [address] qualify[facility]HOL[facility] [place] [address] hhgreggHEALTH MCO UPlanMeHOLMES [facility] CARE[facility]US Member Subscriber Plan / Payer (Ef fective 2014-Present) Name:Compa Ricci Relation to Subscriber:Self Name:Compa Ricci Payer ID:[id number] Group ID:[id number] Type:Medicaid [address] Member Subscriber Plan / Payer (Ef fective 2014-Present) Name:Compa Ricci Relation to Subscriber:Self Name:Compa Ricci Payer ID:[id number] Group ID:[id number] Type:Medicaid [address] Member Subscriber Plan / Payer (Ef fective 2014-Present) Name:Compa Ricci Relation to Subscriber:Self Name:Compa Ricci Payer ID:[id number] Group ID:[id number] Type:Medicaid Address: [address] Care Teams Chief Controller Relationship Specialty Start Date End Date Pcp, Unknown PCP - General 09/03/14 Additional Source Comments The information contained in this document represents components of the legal health record. It is not the complete legal health record.[facility]
--- OUTSIDE RECORDS SUMMARY | 2025-07-20 17:36 | XMS_ITS | Encounter Summary ---
Author Organization [employer] Address [address] [place] [address] 7 [place] [address] Care Team Providers Care Dietary Service Aide Name Role Phone Molly Narayan MD Primary Care Pro vider Carlee Thomas RN Unavailable [phone] Freda Saldivar Unavailable Reason for Visit * Reason Comments Med Refill Encounter Details Date Type Department Care Team (Late st Contact Info) Description 09/23/2023 Refill [facility] MEDICINE [address] [place], [place] [phone] Molly Narayan MD [address] [place], [place] [phone] Social History Tobacco Use Types Packs/Day Years [...] Description 07/29/2025 1:30 PM EST Office Visit [facility] OPTOMETRY [address] [place], [place] [phone] Renae Jean, OD [address] [place] [address] documented as of this encounter Visit Diagnoses Not on filedocumented in this encounter Additional Health Concerns Assessment Noted Time PHQ-9 Depression Total Score: 12 023 11:43 AM EDT documented as of this encounter Care Teams Dietary Service Aide Relationship Specialty Start Date End Date Molly Narayan MD [address] [place] [address] PCP - General Internal Medicine 01/02/23 Carlee Thomas RN [address] [place] [address] Registered Nurse Family Medicine 07/07/25 Freda Saldivar 07/07/25 documented as of this encounter
--- OUTSIDE RECORDS SUMMARY | 2025-07-20 17:36 | XMS_ITS | Encounter Summary ---
Author Organization [employer] Address [address] [facility] 7t [place] [address] Care Team Providers Care Dry Man Name Role Phone Al Canela Primary Care Provider Unavail able Molly Narayan MD Primary Care Pro vider Carlee Thomas RN Unavailable [phone] Freda Saldivar Unavailable Reason for Visit * Reason Onset Date Comments Med Refill 12/28/2022 Encounter Details Date Type Department Care Team (Late st Contact Info) Description 12/28/2022 Telephone [facility] MEDICINE [address] [place], [place] [phone] Al Canela AGNP Med Refill Social History [...] 07/29/2025 1:30 PM EST Office Visit [facility] OPTOMETRY [address] [place], [place] [phone] Renae Jean, OD [address] [place] [address] documented as of this encounter Visit Diagnoses Not on filedocumented in this encounter Care Teams Dry Man Relationship Specialty Start Date End Date Al Canela AGNP PCP - General Family Medicine 09/14/22 01/01/23 Molly Narayan MD [address] [place] [address] PCP - General Internal Medicine 01/02/23 Carlee Thomas, TREY [address] [place] [phone] Registered Nurse Family Medicine 07/07/25 Freda Saldivar 07/07/25 documented as of this encounter
--- OUTSIDE RECORDS SUMMARY | 2025-07-20 17:36 | XMS_ITS | Encounter Summary ---
Author Organization [employer] Address [address] [place] [address] 7 [place] [address] Care Team Providers Care Expediter Name Role Phone Molly Narayan MD Primary Care Pro vider Carlee Thomas RN Unavailable [phone] Freda Saldivar Unavailable Reason for Visit * Reason Comments Med Refill Encounter Details Date Type Department Care Team (Late st Contact Info) Description 09/01/2023 Refill [facility] 230 [place], [place] [phone] Molly Narayan MD [address] [place], [place] [phone] Social History Tobacco Use Types Packs/Day Years [...] Description 07/29/2025 1:30 PM EST Office Visit [facility] [address] [place], [place] [phone] Renae Jean, OD 230 [place] [address] documented as of this encounter Visit Diagnoses Not on filedocumented in this encounter Additional Health Concerns Assessment Noted Time PHQ-9 Depression Total Score: 12 023 11:43 AM EDT documented as of this encounter Care Teams Expediter Relationship Specialty Start Date End Date Molly Narayan MD [address] [place] [address] PCP - General Internal Medicine 01/02/23 Carlee Thomas RN 230 [place] [address] Registered Nurse Family Medicine 07/07/25 Freda Saldivar 07/07/25 documented as of this encounter
--- OUTSIDE RECORDS SUMMARY | 2025-07-20 17:36 | XMS_ITS | Encounter Summary ---
Author Organization [employer] Address [address] [place] [address] 7t [place] [address] Care Team Providers Care Jet Man Name Role Phone Al Canela MILEY Primary Care Provider Unavail able Molly Narayan MD Primary Care Pro vider Carlee Thomas RN Unavailable [phone] Freda Saldivar Unavailable Reason for Visit * Reason Comments Med Refill Encounter Details Date Type Department Care Team (Late Contact Info) Description 12/28/2022 Refill [facility] 230 [place], [place] [phone] Name, MD Enrico 230 [place], [place] [phone] Subclinical hypothyroidism Social History Tobacco Use Types [...] Department Care Team (Late Contact Info) Description 07/29/2025 1:30 PM EST Office Visit [facility] OPT[facility]RY [address] [place], [place] [phone] Renae Jean, OD 230 [place], [place] [phone] documented as of this encounter Visit Diagnoses Diagnosis Subclinical hypothyroidism Other specified acquired hypothyroidism documented in this encounter Care Teams Jet Man Relationship Specialty Start Date End Date Al Canela AGNP PCP - General Family Medicine 09/14/22 01/01/23 Molly Narayan MD [address] [place] [address] [phone] PCP - General Internal Medicine 01/02/23 Carlee Thomas RN [address] [place] [address] [phone] Registered Nurse Family Medicine 07/07/25 Freda Saldivar 07/07/25 documented as of this encounter
--- OUTSIDE RECORDS SUMMARY | 2025-07-20 17:36 | XMS_ITS | Clinical Summary ---
Author Organization [facility] Address [address] [place] [address] Phone Care Team Providers Care Security Control Assessor Name Role Phone Physician, Pcp Unknown Primary Care Provider Josefina vailable Allergies No known active allergies Medications methocarbamoL (ROBAXIN) 750 mg tablet Take 1 tablet (750 mg total) by mouth 4 (four) times a day for 7 days. 28 each 02/04/2025 Active Active Problems No known active problems Medical History Medical History Date Comments Hypothyroid Depression Anxiety Social History Tobacco Use Types Packs/Day Years Used Date Smoking Tobacco: Never Assessed Comments Unknown Sex and Gender Information Value Date Recorded Sex Assigned at Female 02/04/2025 2:33 PM EDT Legal Sex Female 6:18 PM EST Gender Identity Female 02/04/2025 2:33 PM EDT Sexual Orientation Straight 02/04/2025 2: 33 PM EDT Obstetrics History Last Filed Vital Signs Vital Sign Reading Time Taken Comments Blood Pressure 122/76 02/04/2025 4:13 PM EDT Pulse 68 02/04/2025 4:13 PM EDT Temperature 36.7 C (98.1 F) 02/04/2025 4:13 PM EDT Respiratory Rate 16 02/04/2025 4:13 PM EDT Oxygen Saturation 100% 02/04/2025 4:13 PM EDT Inhaled Oxygen Concentration - - Weight 60.8 kg (134 lb) 02/04/2025 1:26 PM EDT Height 162.6 cm (5' 4 ) 02/04/2025 1:26 PM EDT Body Mass Index 23 02/04/2025 1:26 PM EDT Plan of Treatment Health Maintenance Due Date Last Done Comments Breast Cancer Screening 1973 Colorectal Cancer Screening: Colonoscopy 1973 Hepatitis A Vaccines (1 of 2 - Risk 2-dose series) 1992 Social Influencers of Health Screening 08/18/2022 Pneumococcal Vaccine: 50+ Years (1 of 1 - PCV) 12/31/2023 RSV Immunization Adult Patients (1 - Risk 50-74 years 1-dose series) 12/31/2023 Depression Screening 09/16/2024 Zoster Vaccines (2 of 2) 03/17/2025 01/20/2025 COVID-19 Vaccine (4 - 2024-2 6 season) 2025 04/10/2023, 07/19/2022, 02/10/2021 Influenza Vaccine (#1) 2025 , 08/26/2014, 11/17/2009 Cervical Cancer Screening: P ap Smear 06/26/2026 06/26/2023 Cholesterol Screening (Lipid Panel) 01/20/2030 01/20/2025 DTaP,Tdap,and Td Vaccines (3 - Td or Tdap) 04/10/2033 04/10/2023, 11/17/2009 Hepatitis B Vaccines Completed 11/17/2009, 01/20/2009, 12/22/2008 HIV Screening Completed 01/20/2025 Hepatitis C Screening Completed 01/20/2025 HIB Vaccines Aged Out No longer [...] to complete this topic RSV Immunization Patients Under 20 months Aged Out No longer eligible b ased on patient's age to complete this topic Varicella Vaccines Aged Out No longer eligible based on patient's [place] [id number] MEDICAID - [place] Care Teams Security Control Assessor Relationship Specialty Start Date End Date Physician, Pcp Unknown PCP - General 02/04/25
--- OUTSIDE RECORDS SUMMARY | 2025-07-20 17:36 | XMS_ITS | Encounter Summary ---
Author Organization [employer] Address [address] [place] [address] [place] [address] Care Team Providers Care Md Ophthalmologist Name Role Phone Molly Narayan MD Primary Care Pro vider Carlee Thomas RN Unavailable [phone] Freda Saldivar Unavailable Reason for Visit * Reason Onset Date Comments Appointment Request 02/18/2025 Encounter Details Date Type Department Care Team ([facility] st Contact Info) Description 02/18/2025 Telephone [facility]INE 230 [place], [place] [phone] Molly Narayan MD 230 [place], [place] [phone] Appointment Request Social History Tobacco Use Types Packs/Day Years [...] encounter Miscellaneous Notes * Telephone Encounter - Gopi Willis - 02/18/2025 10:55 AM EDT Tc from pt requesting call back to reschedule CDTM visit stating uber never arrived. Please contact pt at [phone]. (Kittitian Speaker) documented in this encounter Plan of Treatment Upcoming Encounters Date Type Department Care Team (Late st Contact Info) Description 07/29/2025 1:30 PM EST Office Visit [facility] [address] [place] [address] Ted, Renae, OD 230 [place] [address] documented as of this encounter Visit Diagnoses Not on filedocumented in this encounter Additional Health Concerns Assessment Noted Time PHQ-9 Depression Total Score: 16 024 11:50 AM EDT documented as of this encounter Care Teams Md Ophthalmologist Relationship Specialty Start Date End Date Molly Narayan MD 230 [place], [place] [phone] PCP - General Internal Medicine 01/02/23 Carlee Thomas RN [address] [place] [address] [phone] Registered Nurse Family Medicine 07/07/25 Freda Saldivar 07/07/25 documented as of this encounter
--- OUTSIDE RECORDS SUMMARY | 2025-07-20 17:36 | XMS_ITS | Encounter Summary ---
Author Organization [employer] Address [address] [place] [address] 7 [place] [address] Care Team Providers Care Tie Worker Name Role Phone Molly Narayan MD Primary Care Pro vider Carlee Thomas RN Unavailable [phone] Freda Saldivar Unavailable Reason for Visit * Reason Comments Med Refill Encounter Details Date Type Department Care Team (Late st Contact Info) Description 09/21/2023 Refill [facility]INE 230 [place], [place] [phone] Molly Narayan MD 230 [place], [place] [phone] Social History Tobacco Use Types Packs/Day Years [...] Description 07/29/2025 1:30 PM EST Office Visit [facility] [address], [place] [phone] Renae Jean, OD 230 [place] [address] documented as of this encounter Visit Diagnoses Not on filedocumented in this encounter Additional Health Concerns Assessment Noted Time PHQ-9 Depression Total Score: 12 023 11:43 AM EDT documented as of this encounter Care Teams Tie Worker Relationship Specialty Start Date End Date Molly Narayan MD [address] [place] [address] PCP - General Internal Medicine 01/02/23 Carlee Thomas RN 230 [place] [address] Registered Nurse Family Medicine 07/07/25 Freda Saldivar 07/07/25 documented as of this encounter
--- OUTSIDE RECORDS SUMMARY | 2025-07-20 17:36 | XMS_ITS | Encounter Summary ---
Author Organization [employer] Address [address] [facility] 7t [place] [address] Care Team Providers Care Microsoft Solutions Architect Name Role Phone Molly Narayan MD Primary Care Pro vider Carlee Thomas RN Unavailable [phone] Freda Saldivar Unavailable Reason for Visit * Reason Comments Med Refill Encounter Details Date Type Department Care Team (Late st Contact Info) Description 01/11/2025 Refill [facility] MEDICINE 230 [place], [place] [phone] Renee Patel MD 230 [place], [place] [phone] Social History Tobacco Use Types Packs/Day Years [...] housing situation today? I have amy celestino 07/03/[address] you li [...] Description 07/29/2025 1:30 PM EST Office Visit [facility] [address] [place], [place] [phone] Renae Jean, OD 230 [place] [address] documented as of this encounter Visit Diagnoses Not on filedocumented in this encounter Additional Health Concerns Assessment Noted Time PHQ-9 Depression Total Score: 16 024 11:50 AM EDT documented as of this encounter Care Teams Microsoft Solutions Architect Relationship Specialty Start Date End Date Molly Narayan MD 230 [place], [place] [phone] PCP - General Internal Medicine 01/02/23 Carlee Thomas, TREY [address] [place] [address] [phone] Registered Nurse Family Medicine 07/07/25 Freda Saldivar 07/07/25 documented as of this encounter
== END 2025-07-20 14:34 | disposition home or self-care (01) ==
LOC: HO.MAMMO 14:33
PROVIDERS: PCP Student in an Organized Health Care Education/Training Program; Visit Provider Student in an Organized Health Care Education/Training Program
DX: Z12.31 Encounter for screening mammogram for malignant neoplasm of breast (principal)
CPT/HCPCS: 77063; 77067

== ENCOUNTER → 2025-07-20 15:30 | Outpatient (BNV) | payer MEDICAID, SELFPAY | PROVIDERS: PCP Student in an Organized Health Care Education/Training Program; Visit Provider Radiology Body Imaging | DX: Z12.31 Encounter for screening mammogram for malignant neoplasm of breast (principal) | CPT/HCPCS: 77063; 77067 ==

== ENCOUNTER 2025-08-24 13:40 | Outpatient (REF) | payer MEDICAID, SELFPAY ==
[2025-08-24 18:13] LABS: Alanine Aminotransferase 23 U/L (0-31); Albumin Level 4.7 g/dL (3.5-5.0); Alkaline Phosphatase 58 U/L (39-117); Anion Gap 12 (12-20); Aspartate Amino Transferase 29 U/L (5-31); Blood Urea Nitrogen 17 mg/dL (9-16); Calcium 9.6 mg/dL (8.4-10.2); Carbon Dioxide 28 mmol/L (22-29); Chloride 106 mmol/L (96-108); Cholesterol 225 mg/dL (<200); Estimated Glomerular Filt Rate > 60; HDL Cholesterol 53 mg/dL (>40); Potassium 4.0 mmol/L (3.3-5.1); Sodium 142 mmol/L (135-145); Total Protein 7.9 g/dL (6.5-8.0); Triglycerides 107 mg/dL (<150)
[2025-08-24 18:20] LABS: Free T4 (Free Thyroxine) 0.83 ng/dL (0.71-1.85); Thyroid Stimulating Hormone 5.37 uIU/mL (0.32-4.0)
--- OUTSIDE RECORDS SUMMARY | 2025-08-24 19:25 | XMS_ITS | Encounter Summary ---
Author Organization [employer] Address [address] [facility] 7 [place] [address] Care Team Providers Care Circulating Nurse Name Role Phone Molly Narayan MD Primary Care Pro vider Carlee Thomas RN Unavailable [phone] Freda Saldivar Unavailable Reason for Visit * Reason Comments Med Refill Encounter Details Date Type Department Care Team (Late st Contact Info) Description 05/19/2024 Refill [facility] & PEDS [address] [place] [address] Molly Narayan MD 230 [place] [address] Social History Tobacco Use Types Packs/Day Years [...] Care Team (Late st Contact Info) Description 11/12/2025 11:30 AM EST Office Visit [facility] MEDICINE 230 [place] [address] Molly Narayan MD [address] [place] [address] documented as of this encounter Visit Diagnoses Not on filedocumented in this encounter Additional Health Concerns Assessment Noted Time PHQ-9 Depression Total Score: 12 023 11:43 AM EDT documented as of this encounter Care Teams Circulating Nurse Relationship Specialty Start Date End Date Molly Narayan MD [address] [place] [phone] PCP - General Internal Medicine 01/02/23 Carlee Thomas RN [address] [place] [phone] Registered Nurse Family Medicine 07/07/25 Freda Saldivar 07/07/25 documented as of this encounter
--- OUTSIDE RECORDS SUMMARY | 2025-08-24 19:25 | XMS_ITS | Clinical Summary ---
Author Organization [facility] Address [address] [place] [address] Phone Care Team Providers Care Passenger Elevator Operator Name Role Phone Physician, Pcp Unknown Primary [...] Orientation Straight 02/04/2025 2: 33 PM EDT Last Filed Vital Signs Vital [...] patient's age to complete this topic Insurance MEDICAID - [place] Care Teams Passenger Elevator Operator Relationship Specialty Start Date End Date Physician, Pcp Unknown PCP - General 02/04/25
--- OUTSIDE RECORDS SUMMARY | 2025-08-24 19:29 | XMS_ITS | Encounter Summary ---
Author Organization [employer] Address [address] [place] [address] 7 [place] [address] Care Team Providers Care Battery Starter Name Role Phone Molly Narayan MD Primary Care Pro vider Carlee Thomas RN Unavailable [phone] Freda Saldivar Unavailable Reason for Visit * Reason Comments Med Refill Encounter Details Date Type Department Care Team (Late st Contact Info) Description 07/03/2023 Refill [facility] MED[facility]INE 230 [place], [place] [phone] Molly Narayan MD 230 [place], [place] [phone] Social History Tobacco Use Types Packs/Day Years [...] Description 11/12/2025 11:30 AM EST Office Visit [facility] MEDICINE [address] [place] [phone] Molly Narayan MD [address] [place] [phone] documented as of this encounter Visit Diagnoses Not on filedocumented in this encounter Additional Health Concerns Assessment Noted Time PHQ-9 Depression Total Score: 12 023 11:43 AM EDT documented as of this encounter Care Teams Battery Starter Relationship Specialty Start Date End Date Molly Narayan MD [address] [place] [phone] PCP - General Internal Medicine 01/02/23 Carlee Thomas RN [address] [place] [address] [phone] Registered Nurse Family Medicine 07/07/25 Freda Saldivar 07/07/25 documented as of this encounter
--- OUTSIDE RECORDS SUMMARY | 2025-08-24 19:32 | XMS_ITS | Encounter Summary ---
Author Organization [employer] Address [address] [place] [address] 7 [place] [address] Care Team Providers Care Wool Fleece Sorter Name Role Phone Molly Narayan MD Primary Care Pro vider Carlee Thomas RN Unavailable [phone] Freda Saldivar Unavailable Reason for Visit * Reason Comments Med Refill Encounter Details Date Type Department Care Team (Late st Contact Info) Description 09/21/2023 Refill [facility] MED[facility]INE 230 [place], [place] [phone] Molly Narayan MD 230 [place], [place] [phone] Social History Tobacco Use Types Packs/Day Years [...] Description 11/12/2025 11:30 AM EST Office Visit [facility] MEDICINE [address] [place] [phone] Molly Narayan MD [address] [place] [address] documented as of this encounter Visit Diagnoses Not on filedocumented in this encounter Additional Health Concerns Assessment Noted Time PHQ-9 Depression Total Score: 12 023 11:43 AM EDT documented as of this encounter Care Teams Wool Fleece Sorter Relationship Specialty Start Date End Date Molly Narayan MD [address] [place] [address] PCP - General Internal Medicine 01/02/23 Carlee Thomas RN [address] [place] [address] Registered Nurse Family Medicine 07/07/25 Freda Saldivar 07/07/25 documented as of this encounter
--- OUTSIDE RECORDS SUMMARY | 2025-08-24 19:33 | XMS_ITS | Encounter Summary ---
Author Organization [employer] Address [address] [place] [address] 7 [place] [address] Care Team Providers Care Outbound Sales Agent Name Role Phone Molly Narayan MD Primary Care Pro vider Carlee Thomas RN Unavailable [phone] Fread Saldivar Unavailable Reason for Visit * Reason Comments Med Refill Encounter Details Date Type Department Care Team (Late st Contact Info) Description 09/23/2023 Refill [facility] 230 [place], [place] [phone] Molly Narayan MD 230 [place], [place] [phone] Social History Tobacco Use Types Packs/Day Years [...] Description 11/12/2025 11:30 AM EST Office Visit [facility] MEDICINE [address] [place] [phone] Molly Narayan MD [address] [place] [address] documented as of this encounter Visit Diagnoses Not on filedocumented in this encounter Additional Health Concerns Assessment Noted Time PHQ-9 Depression Total Score: 12 023 11:43 AM EDT documented as of this encounter Care Teams Outbound Sales Agent Relationship Specialty Start Date End Date Molly Narayan MD [address] [place] [phone] PCP - General Internal Medicine 01/02/23 Carlee Thomas RN [address] [place] [address] Registered Nurse Family Medicine 07/07/25 Freda Saldivar 07/07/25 documented as of this encounter
--- OUTSIDE RECORDS SUMMARY | 2025-08-24 19:33 | XMS_ITS | Encounter Summary ---
Author Organization [employer] Address [address] [place] [address] 7 [place] [address] Care Team Providers Care Dismantler Name Role Phone Molly Narayan MD Primary Care Pro vider Carlee Thomas RN Unavailable [phone] Freda Saldivar Unavailable Reason for Visit * Reason Comments Med Refill Encounter Details Date Type Department Care Team (Late st Contact Info) Description 09/01/2023 Refill [facility] MEDICINE 230 [place], [place] [phone] Molly Narayan MD 230 [place], [place] [phone] Social History Tobacco Use Types Packs/Day Years [...] Description 11/12/2025 11:30 AM EST Office Visit [facility] MEDICINE [address] [place] [phone] Molly Narayan MD [address] [place] [address] documented as of this encounter Visit Diagnoses Not on filedocumented in this encounter Additional Health Concerns Assessment Noted Time PHQ-9 Depression Total Score: 12 023 11:43 AM EDT documented as of this encounter Care Teams Dismantler Relationship Specialty Start Date End Date Molly Narayan MD [address] [place] [address] PCP - General Internal Medicine 01/02/23 Carlee Thomas RN [address] [place] [address] Registered Nurse Family Medicine 07/07/25 Freda Saldivar 07/07/25 documented as of this encounter
--- OUTSIDE RECORDS SUMMARY | 2025-08-24 19:33 | XMS_ITS | Encounter Summary ---
Author Organization [employer] Address [address] [place] [address] [place] [address] Care Team Providers Care Foreign Language Professor Name Role Phone Molly Narayan MD Primary Care Pro vider Carlee Thomas RN Unavailable [phone] Freda Saldivar Unavailable Reason for Visit * Reason Onset Date Comments Appointment Request 02/18/2025 Encounter Details Date Type Department Care Team ([facility] st Contact Info) Description 02/18/2025 Telephone [facility] MEDICINE 230 [place], [place] [phone] Molly Narayan MD 230 [place], [place] [phone] Appointment Request Social History Tobacco Use Types [...] uber never arrived. Please contact pt at [phone]. (Filipino Speaker) documented in this encounter Plan of Treatment Upcoming Encounters Date Type Department Care Team (Late st Contact Info) Description 11/12/2025 11:30 AM EST Office Visit [facility] MEDICINE 230 [place] [address] Molly Narayan MD [address] [place] [phone] documented as of this encounter Visit Diagnoses Not on filedocumented in this encounter Additional Health Concerns Assessment Noted Time PHQ-9 Depression Total Score: 16 024 11:50 AM EDT documented as of this encounter Care Teams Foreign Language Professor Relationship Specialty Start Date End Date Molly Narayan MD [address] [place] [address] [phone] PCP - General Internal Medicine 01/02/23 Carlee Thomas RN [address] [place] [address] [phone] Registered Nurse Family Medicine 07/07/25 Freda Saldivar 07/07/25 documented as of this encounter
--- OUTSIDE RECORDS SUMMARY | 2025-08-24 19:33 | XMS_ITS ---
Author Organization [employer] Address [address] [place] [address] 7 [place] [address] Care Team Providers Care Shield Operator Name Role Phone Molly Narayan MD Primary Care Pro vider Carlee Thomas RN Unavailable [phone] Freda Saldivar Unavailable CHW Complex Status:Outreach In Progress (Enrolling) Start date:07/07/2025 Enrollment reason:Referred by provider Overview Provider Referral- pt with poor memory needs helps w appts. Please outreach to patient. Case Team Name Relationship Phone Freda Saldivar(Responsible Staff) [phone] Continued Care and Services Coordination
--- OUTSIDE RECORDS SUMMARY | 2025-08-24 19:33 | XMS_ITS ---
Author Organization [employer] Address [address] [place] [address] 7 [place] [address] Care Team Providers Care Nipple Machine Operator Name Role Phone Molly Narayan MD Primary Care Pro vider Carlee Thomas RN Unavailable Freda Saldivar Unavailable CM Complex Status:Outreach In Progress (Enrolling) Start date:07/07/2025 Enrollment reason:ADT Feed Overview Provider Referral- pt with poor memory needs helps w appts Case Team Name Relationship Phone Carlee Thomas RN(Responsible Staff) Registered Nurse Continued Care and Services Coordination
--- OUTSIDE RECORDS SUMMARY | 2025-08-24 19:33 | XMS_ITS | Encounter Summary ---
Author Organization [employer] Address [address] [facility] 7t [place] [address] Care Team Providers Care Risk Advisor Name Role Phone Molly Narayan MD Primary Care Pro vider Carlee Thomas RN Unavailable [phone] Freda Saldivar Unavailable Reason for Visit * Reason Comments Med Refill Encounter Details Date Type Department Care Team (Late st Contact Info) Description 01/11/2025 Refill [facility] MEDICINE 230 [place], [place] [phone] Renee Patel MD 230 [place], [place] [phone] Social History Tobacco Use Types Packs/Day Years [...] Description 11/12/2025 11:30 AM EST Office Visit [facility] MEDICINE [address] [place] [address] [phone] Molly Narayan MD [address] [place] [phone] documented as of this encounter Visit Diagnoses Not on filedocumented in this encounter Additional Health Concerns Assessment Noted Time PHQ-9 Depression Total Score: 16 024 11:50 AM EDT documented as of this encounter Care Teams Risk Advisor Relationship Specialty Start Date End Date Molly Narayan MD [address] [place] [address] [phone] PCP - General Internal Medicine 01/02/23 Carlee Thomas, TREY [address] [place] [address] [phone] Registered Nurse Family Medicine 07/07/25 Freda Saldivar 07/07/25 documented as of this encounter
--- OUTSIDE RECORDS SUMMARY | 2025-08-24 19:34 | XMS_ITS | Clinical Summary ---
Author Organization [employer] Address [address] [facility] [address] [place] [address] Care Team Providers Care Mechanical Maintenance Engineer Name Role Phone Molly Narayan MD Primary Care Pro vider Carlee Thomas RN Unavailable [phone] Freda Saldivar Unavailable Allergies No known active allergies Medications * This document contains information received from the source organization and may not represent a complete record from that organization. FLUoxetine (PROzac) 20 MG tablet TAKE 1 TABLET BY MOUTH EVERY DAY IN THE MORNING 90 tablet 10/26/19 25 Active levothyroxine (Synthroid, Levoxyl) 25 MCG tabletIndications: Subclinical hypothyroidism TAKE 1 TABLET (25 MCG) BY MOUTH BEFORE BREAKFAST 90 tablet 1 02/23/20 25 026 Active hydrOXYzine HCl (Atarax) 10 MG tablet TAKE 1 TABLET BY MOUTH EVERY 8 HOURS IF NEEDED FOR ITCHING OR ANXIETY. 30 tablet 3 02/11/20 24 025 Discontin ued(Thera py completed ) cloNIDine (Catapres) 0.1 MG tabletIndications: Anxiety TAKE 1 TABLET BY MOUTH EVERYDAY AT BEDTIME 90 tablet 03/27/20 24 025 Discontin ued(Thera py completed ) valACYclovir (Valtrex) 500 MG tablet TAKE 1 TABLET BY MOUTH 2 TIMES DAILY FOR 3 DAYS 6 tablet 1 05/20/20 24 025 Discontin ued(Thera py completed ) DULoxetine (Cymbalta) [address] capsule TAKE 1 CAPSULE BY MOUTH EVERY DAY DO NOT CRUSH OR CHEW 30 capsule 1 10/12/19 25 025 Discontin ued(Thera py completed ) Active Problems Problem Noted Date Diagnosed Date Swallowing problem 01/19/2025 Atypical chest pain 07/04/2024 Helicobacter pylori (H. pylori) infection 2023 Overview (01/27/2024): Urea breath test on 01/20/24 at [facility] GI is POS. Rx initially with tetracycline [...] in services PLAN: 1. Follow up with [facility]: Recommended for follow-up: as needed 2. Patient goal is to maintain a stable mental health and practice self-care 3. Behavioral Recommendations a. Continue to attend individual therapy sessions with [facility] b. Utilize coping mechanisms to decrease symptoms c. Be added to wait list for psychopharmacology at [facility] Family problems 07/26/2023 Assessment & Plan [...] in services PLAN: 1. Follow up with [facility]: Recommended for follow-up: as needed 2. Patient goal is to maintain a stable mental health and practice self-care 3. Behavioral Recommendations a. Continue to attend individual therapy sessions with N b. Utilize coping mechanisms to decrease symptoms c. Be added to wait list for psychopharmacology at [facility] Venous insufficiency of both lower extremities [...] of referral -vaccines: s/p hep Bx3-immune, covid 83w9-Uibmtare x1, tdap 2022 -decrease vision referred to [...] -referred today -vaccines: s/p hep Bx3, covid 95b6-Mfvvtqaq today, tdap today -labs x annual exam will RTC in fasting -pt agreed to have STI testing including HIV to have for baseline -pt reports weight loss but not significant -will do labs x annual exam and will monitor weight at next apt -decrease vision referred today to opthalmology ------ -CT chest angiography 03/2022: No pulmonary emboli. No active pulmonary disease. -echocardiogram 2015: EF 60%,normal -cardiac stress test 2014: Indeterminate [...] in services PLAN: 1. Follow up with [facility]: Recommended for follow-up: as needed 2. Patient goal is to maintain a stable mental health and practice self-care 3. Behavioral Recommendations a. Continue to attend individual therapy sessions with [facility] b. Utilize coping mechanisms to decrease symptoms c. Be added to wait list for psychopharmacology at [facility] Resolved Problems Problem Noted Date Diagnosed Date Resolved Date Facial swelling 01/19/2025 07/06/2025 Herpetic miranda 07/28/2023 11/12/2023 Vitamin D deficiency 05/23/2018 023 Depressive disorder 02/03/2013 04/10/20 23 Encounters Date Type Department Care Team Description 08/13/2025 Results Follow-Up [facility] [address] [place] [address] Molly Narayan MD BI Mammogram Screening Tomosynthesis Bilateral 07/29/2025 1:30 PM EST Office Visit [facility] [address] [place] [address] Ted, Renae, OD White without pressure of peripheral retina of both eyes (Primary Dx) 07/29/2025 Travel 07/27/2025 Patient Outreach [facility] [address] [place] [address] Molly Narayan MD Care Management (C3CM COMPLEX INITIAL ASSESSMENT/ ENROLLMENT-LVM) 07/26/[address] [address] Molly Narayan MD faviola recall 07/26/2025 Patient Outreach [address] [address] Molly Narayan MD Care Coordination (C3 [facility] Freda Saldivar telephone call outreach) 07/21/2025 Patient Outreach [address] [address] Molly Narayan MD 07/21/2025 Patient Outreach [address] [address] Molly Narayan MD Care Coordination ([facility] Freda Saldivar telephone call outreach) 07/12/[address] [address] Molly Narayan MD Results 07/07/2025 Patient Outreach [address] [address] Molly Narayan MD Care Coordination (C3 Cm[facility] Freda Saldivar chart review) 07/07/2025 Patient Outreach [address] [address] Molly Narayan MD Care Management (CM -CHART REVIEW/) 07/07/2025 Patient Outreach [address] [address] Molly Narayan MD 07/06/2025 10:45 AM EDT Office Visit [address] [address] Molly Narayan MD Screening for colon cancer (Primary Dx); Memory loss; Hyperlipidemia, unspecified hyperlipidemia type; Hypothyroidism, unspecified type; Health care maintenance; Swallowing problem; Anxiety; Moderate episode of recurrent major depressive disorder (CMS/HCC) (HCC) 07/06/2025 Orders Only [address] [address] Molly Narayan MD Health care maintenance (Primary Dx) 07/06/2025 Travel 07/05/[address] [address] Molly Narayan MD chartprep 06/29/2025 Patient Outreach [address] [address] Molly Narayan MD Care Coordination (CHW outreach for SDOH housing search-LVM ) 06/29/2025 Patient Outreach [address] [address] Molly Narayan MD Pre-visit Planning (SDOH Screening positive and Tobacco screening negative) from Last 3 Months Immunizations Immunization Administration [...] housing situation today? I have amy tirado 07/21/[address] you li ve. Do you have problems with any of the following? None of the above 07/21/2025 Food Insecurity Answer Date Recorded Within the past 12 months, y ou worried that your food would run out before you got money to buy more: Sometimes True 2024 Within the past 12 months,th e food you bought just didn't last and you didn't have enough money to get more: Sometimes True 07/21/2025 Transportation Answer Date Recorded In the past [...] Description 11/12/2025 11:30 AM EST Office Visit [facility] [address] [place] [phone] Molly Narayan MD [address] [place] [address] Health Maintenance Due Date Last Done Comments CT Colonography 1975 Colonoscopy 1975 FIT 1975 Sigmoidoscopy 1975 Family Planning (PISQ) 1988 Hepatitis A Vaccines (1 of 2 - Risk 2-dose series) 1992 Pneumococcal Vaccine: 50+ Years (1 of 1 - PCV) 12/31/2023 RSV Patients and Patients Aged 60 years or older (1 - Risk 50-74 years 1-dose series) 12/31/2023 Depression Monitoring 01/01/2025 07/03/2024, 024 COVID-19 Vaccine ( season) 2025 04/10/2023, 07/19/2022, 02/10/2021 Influenza Vaccine (#1) 2025 , 08/26/2014, 11/17/2009 Alcohol/Substance Use Screening 01/19/2026 01/19/2025 Disability Screening 01/19/2026 01/19/2025 SDOH Screening 07/21/2026 07/21/2025 FOBT 07/22/2026 07/22/2025 Tobacco Screening 08/20/2026 08/20/2025 Mammogram 07/20/2027 07/20/2025, 02/14, 11/30/2021, Additional history exists Cervical Cancer Screening 06/26/2028 HPV/Cotest 06/26/2028 06/26/2023, 12/10/2018 Pap Smear 06/26/2028 06/26/2023 Colorectal Cancer Screening 07/22/2028 FIT DNA/Cologuard 07/22/2028 07/22/2025 DTaP/Tdap/Td Vaccines (2 - Td or Tdap) [...] Procedure Name Priority Date/Time Associated Diagnosis Comments HEMOGLOBIN A1C Routine 08/24/2025 1:45 PM EST Health care maintenance T4, FREE Routine 08/24/2025 1:45 PM EST Hypothyroidism, unspecified type TSH Routine 08/24/2025 1:45 PM EST Hypothyroidism, unspecified type LIPID PANEL, STANDARD Routine 08/24/2025 1:45 PM EST Hyperlipidemia, unspecified hyperlipidemia type COMPREHENSIVE METABOLIC PANEL Routine 08/24/2025 1:45 PM EST Hyperlipidemia, unspecified hyperlipidemia type LAB COLOGUARD COLON CANCER SCREEN Routine 07/22/2025 10:42 AM EST Screening for colon cancer BI MAMMOGRAM SCREENING TOMOSYNTHESIS BILATERAL Routine 07/20/2025 4:03 PM EST POCT GLYCATED HEMOGLOBIN, TOTAL Routine 07/07/2025 9:50 AM EDT Health care maintenance HEPATITIS C AB W/REFL TO HCV RNA, QN, PCR Routine 01/20/2025 3:12 PM EDT Annual physical exam HIV 1/2 ANTIGEN/ANTIBODY, FOURTH GENERATION W/RFL Routine 01/20/2025 3:12 PM EDT Annual physical exam HPV MRNA E6/E7 REFLEX TO HPV 16, 18/45 Routine 06/26/2023 11:25 AM EDT PAP SMEAR Routine 06/26/2023 11:25 AM EDT from Last 3 Months or Most Recently Relevant to Health Maintenance Results * (ABNORMAL) TSH (08/24/2025 1:45 PM EST) Thyroid Stimulating Hormone 5.37(H) 0.32 - 4.0 uIU/mL [facility] Comment:Note: A sustained TS H level above 2.5 uIU/mL may warrant further investigation. TSH 3rd Generation ([facility]) Blood Venous blood specimen / Unknown 08/24/2025 1:45 PM EST 08/24/2025 4:14 PM EST us Molly Yost MD LAB BLOOD ORDERAB LES Final Result [facility] [address] [place] [phone] * T4, Free (08/24/2025 1:45 PM EST) Free T4 (Free Thyroxine) 0.83 0.71 - 1.85 ng/dL [facility] Blood Venous blood specimen / Unknown 08/24/2025 1:45 PM EST 08/24/2025 4:14 PM EST Molly Yost MD LAB BLOOD ORDERAB LES Final Result Performing Organization Address [facility] [place]/ZIP Co de Phone Number [facility] [address] [place] [phone] * Hemoglobin A1c (08/24/2025 1:45 PM EST) [facility] Hemoglobin A1c 5.6 <6.0 % [facility] Comment:Hemoglobin A1C Refer ence Range Adults: 4.8 - 6.0 % Non diabetic: < 6.0 % Goal: < 7.0 %Additional Action Suggested: > 8.0 %Note: Hemoglobin A1c results are invalid for patients with abnormal amounts of HbF. Blood transfusions may impact the HbA1c concentration in the patient sample. Estimated Average Glucose 114 mg/dL [facility] Comment:eAG = Estimated ave rage glucose which is %A1C expressed asaverage glucose, using the formula of the Q8K-SzolacyTgzzinx Glucose study (ADAG), Diabetes Care, Vol.31,#8,Apr. 2007 Blood Venous blood specimen / Unknown 08/24/2025 1:45 PM EST 08/24/2025 4:14 PM EST us Molly Yost MD LAB BLOOD ORDERAB LES Final Result Performing Organization Address City/[facility]/ZIP Co de Phone Number [facility] [address] [place] [phone] * (ABNORMAL) Lipid Panel, Standard (08/24/2025 1:45 PM EST) Pathologist [facility] Triglycerides 107 <150 mg/dL [facility] Comment:Desirable Triglyceri de: less than 150 mg/dLBorderline High Triglyceride 150-199 mg/dLHigh Triglyceride: 200-499 mg/dLVery High Triglyceride: greater than or equal to 5OO mg/dL Cholesterol 225(H) <200 mg/dL [facility] Comment:Desirable Cholestero l: less than 200 mg/dLBorderline High Cholesterol: 200-239 mg/dLHigh Cholesterol: greater than 239 mg/dL LDL Cholesterol Calculated 151(H) <100 mg/dL [facility] Comment:Desirable LDL: less than 100 mg/dLNear Optimal/Above Optimal LDL: 110- 129 mg/dLBorderline High LDL: 130-159 mg/dLHigh LDL: 160-189 mg/dLVery High LDL: greater than or equal to 190 mg/dL HDL Cholesterol 53 >40 mg/dL [facility] Comment:Desirable HDL: great er than 40 mg/dL Note: This HDL assay may give artificially low results in patients with liver disease. Blood Venous blood specimen / Unknown 08/24/2025 1:45 PM EST 08/24/2025 4:14 PM EST Molly Yost MD LAB BLOOD ORDERAB LES Final Result [facility] [address] [place] [address] [phone] * (ABNORMAL) Comprehensive Metabolic Panel (08/24/2025 1:45 PM EST) Sodium 142 135 - 145 mmol/L [facility] Potassium 4.0 3.3 - 5.1 mmol/L [facility] Chloride 106 96 - 108 mmol/L [facility] Carbon Dioxide 28 22 - 29 mmol/L [facility] Anion Gap 12 12 - 20 [facility] Urea Nitrogen (BUN) 17(H) 9 - 16 mg/dL [facility] Creatinine, Serum 0.67 0.5 - 1.4 mg/dL [facility] Estimated Glomerular Filt Rate >60 [facility] Comment:Chronic Kidney Disea se: Estimated GFR < 60 mL/min/1.61o0Khffyk Kidney Disease: Estimated GFR < 15 mL/min/1.73m2 Glucose 82 60 - 115 mg/dL [facility] Calcium 9.6 8.4 - 10.2 mg/dL [facility] Bilirubin, Total 0.5 0.0 - 1.0 mg/dL [facility] Aspartate Amino Transferase 29 5 - 31 U/L [facility] Alanine Aminotransferase 23 0 - 31 U/L [facility] Total Protein 7.9 6.5 - 8.0 g/dL [facility] Albumin Level 4.7 3.5 - 5.0 g/dL [facility] Alkaline Phosphatase 58 39 - 117 U/L [facility] Blood Venous blood specimen / Unknown 08/24/2025 1:45 PM EST 08/24/2025 4:14 PM EST Molly Yost MD LAB BLOOD ORDERAB LES Final Result [facility] [address] [place] [phone] * Cologuard?? colon cancer screening (07/22/2025 10:42 AM EST) Cologuard Result Negative Negative 07/28/20 10:33 PM EST [facility] (CLIA #:[id number]) Comment: The Cologuard (TM) test was performed on this specimen. NEGATIVE TEST RESULT. A negative Cologuard result indicates a low likelihood that a colorectal cancer (CRC) or advanced adenoma (adenomatous polyps with more advanced pre-malignant features) is present. The chance that a person with a negative Cologuard test has a colorectal cancer is less than 1 in 1500 (negative predictive value >99.9%) or has an advanced adenoma is less than 5.3% (negative predictive value 94.7%). These data are based on a prospective cross-sectional study of 10,000 individuals at average risk for colorectal cancer who were screened with both Cologuard and colonoscopy. (Edilma Whitt al, N Engl J Med 2014;370(14):1286- 1297) The normal value (reference range) for this assay is negative. COLOGUARD RE-SCREENING RECOMMENDATION: Periodic colorectal cancer screening is an important part of preventive healthcare for asymptomatic individuals at average risk for colorectal cancer. Following a negative Cologuard result, the [place] Cancer Society and U.S. Multi-Society Task Force screening guidelines recommend a Cologuard re-screening interval of 3 years. References: [place] Cancer Society Guideline for Colorectal Cancer Screening: https://www.cancer.org/cancer/keoyr-eoosbe-hdfdqw/ukiunddnl-hkfryycyr-sauhehe/ac s-rec ommendations.html.; Pepe DK, Mauro ZAZUETA, Colin ArmentaK, Colorectal Cancer Screening: Recommendations for Physicians and Patients from the U.S. Multi-Society Task Force on Colorectal Cancer Screening , Am J Gastroenterology 2017; 112:4485-5123. TEST DESCRIPTION: Composite algorithmic analysis of stool DNA-biomarkers with hemoglobin immunoassay. Quantitative values of individual biomarkers are not reportable and are not associated with individual biomarker result reference ranges. Cologuard is intended for colorectal cancer screening of adults of either sex, 45 years or older, who are at average-risk for colorectal cancer (CRC). Cologuard has been approved for use by the U.S. FDA. The performance of Cologuard was established in a cross sectional study of average-risk adults aged 50-84. Cologuard performance in patients ages 45 to 49 years was estimated by sub-group analysis of near-age groups. Colonoscopies performed for a positive result may find as the most clinically significant lesion: colorectal cancer [4.0%], advanced adenoma (including sessile serrated polyps greater than or equal to 1cm diameter) [20%] or non- advanced adenoma [31%]; or no colorectal neoplasia [45%]. These estimates are derived from a prospective cross-sectional screening study of 10,000 individuals at average risk for colorectal cancer who were screened with both Cologuard and colonoscopy. (Edilma Whitt al, N Engl J Med 2014;370(14):5800-5452.) Cologuard may produce a false negative or false positive result (no colorectal cancer or precancerous polyp present at colonoscopy follow up). A negative Cologuard test result does not guarantee the absence of CRC or advanced adenoma (pre-cancer). The current Cologuard screening interval is every 3 years. ([place]izen [place] Cancer Society and U.S. Multi-Society Task Force). Cologuard performance data in a 10,000 patient pivotal study using colonoscopy as the reference method can be accessed at the following location: www.[employer].HighGround/results. Additional description of the Cologuard test process, warnings and precautions can be found at www.cologuard.com. Stool specimen (specimen) 07/22/2025 10:42 AM EST 07/23/2025 5:39 PM EST Molly Yost MD LAB MOLECULAR RUFINA [employer]NOST[employer] ORDERABLES Final Result [facility] (CLIA #:[id number]) [address] [place] [address], * BI Mammogram Screening Tomosynthesis Bilateral (07/20/2025 4:03 PM EST) Anatomical Region Laterality Modality Breast Bilateral Mammography 07/20/2025 4:03 PM EST Narrative 07/24/2025 8:48 PM EST [facility] [address] [place] [address] Mammography Report Signed Patient: Cindy Mays MR# : [id number] : 1975 Acct:[id number] Age/Sex: 49 / F ADM Date: 07/20/25 Loc: HO.MAMMO Attending Dr: Molly Yost MD Ordering Physician: Molly Narayan MD Re sults: 1Negative Date of Service: 07/20/25 Follow Up: 1 Year From Orig ina Mammogram Procedure(s): MM tomosynthesis screening BI Accession Number(s): [id number] cc: Molly Narayan MD Reason For Exam: SCREENING EXAMINATION: MM SCREENING DIGITAL BREAST TOMOSYNTHESIS, BILATERAL CLINICAL INFORMATION: Screening. Asymptomatic. COMPARISON: Comparison made to multiple prior, most recent February 26, 2024, and most remote May 24, 2017. TECHNIQUE: Digital breast tomosynthesis is performed in mediolateral oblique and craniocaudal views along with computer-aided detection (CAD). Synthesized 2D images are generated from the tomosynthesis. FINDINGS: BREAST COMPOSITION: There are scattered areas of fibroglandular density. BILATERAL BREASTS: No significant masses, suspicious calcifications or other abnormalities are seen in either breast. MM/MM tomosynthesis screening BI IMPRESSION: BILATERAL BREASTS: Negative, no mammographic evidence of malignancy. Normal interval follow-up is recommended in 12 months. ASSESSMENT: BI-RADS: Category 1: Negative RECOMMENDATION: Routine annual mammography screening. FOLLOW-UP: 1 year F/U This examination should not preclude the clinical evaluation of a suspicious palpable abnormality. This patient's information was entered into a reminder system with a target due date for their next mammogram. Electronically signed by: Marc Shaffer MD 07/24/2025 08:44 PM EST Dictated By: Marc Shaffer MD Signed By: <Electronically signed by Marc Shaffer MD in OV> 07/24/252043 DD/ 1603 TD/TT: 07/20/25 1517 Operations Welder: Procedure Note Donotuseinterpreter, Image - 07/24/2025 [place] [facility] [address] [place] [address] Mammography Report Signed Patient: Misha Mays# : [id number] : 1975Acct:[id number] Age/Sex: 49 / FADM Date: 07/20/25 Loc: [facility] Attending Dr: Molly Yost MD Ordering Physician: Molly Narayan sults: 1Negative Date of Service: 07/20/25Follow Up: 1 Year From Orig inal Mammogram Procedure(s): MM tomosynthesis screening BI Accession Number(s): [id number] cc: Molly Narayan MD Reason For Exam: SCREENING EXAMINATION: MM SCREENING DIGITAL BREAST TOMOSYNTHESIS, BILATERAL CLINICAL INFORMATION: Screening. Asymptomatic. COMPARISON: Comparison made to multiple prior, most recent February 26, 2024, and most remote May 24, 2017. TECHNIQUE: Digital breast tomosynthesis is performed in mediolateral oblique and craniocaudal views along with computer-aided detection (CAD). Synthesized 2D images are generated from the tomosynthesis. FINDINGS: BREAST COMPOSITION: There are scattered areas of fibroglandular density. BILATERAL BREASTS: No significant masses, suspicious calcifications or other abnormalities are seen in either breast. MM/MM tomosynthesis screening BI IMPRESSION: BILATERAL BREASTS: Negative, no mammographic evidence of malignancy. Normal interval follow-up is recommended in 12 months. ASSESSMENT: BI-RADS: Category 1: Negative RECOMMENDATION: Routine annual mammography screening. FOLLOW-UP: 1 year F/U This examination should not preclude the clinical evaluation of a suspicious palpable abnormality. This patient's information was entered into a reminder system with a target due date for their next mammogram. Electronically signed by: Marc Shaffer MD 07/24/2025 08:44 PM [facility] Dictated By: Marc Shaffer MD Signed By: <Electronically signed by Marc Shaffer MD in OV> 07/24/252043 DD/ 1603 TD/TT: 07/20/25 1517 Operations Welder: Molly Yost MD IMG BI PROCEDURES Final Result * (ABNORMAL) POCT Hgb A1c (07/07/2025 9:50 AM EDT) Hemoglobin A1C 5.8(A) 4.0 - 5.7 % QC Media Lot # [id number] Lot# Expiration Date [id number] Blood 07/07/2025 9:50 AM EDT Molly Yost MD POINT OF CARE MIHIR T ENTER/EDIT ORDERABLES Final Result * Hepatitis C Antibody with Reflex to HCV, RNA, Quantitative, Real-Time PCR (01/20/2025 3:12 PM EDT) Hepatitis C Antibody Nonreactive Nonreactive [facility] Comment:Antibodies to HCV no t detected; does not exclude early acuteHCV infection. Blood Venous blood specimen / Unknown 01/20/2025 3:12 PM EDT 01/20/2025 4:09 PM EDT us Molly Yost MD LAB BLOOD ORDERAB LES Final Result Performing Organization Address City/[facility]/ZIP Co de Phone Number [facility] [address] [place] [phone] * HIV-1/2 Antigen and Antibodies, Fourth Generation, with Reflexes (01/20/2025 3:12 PM EDT) Pathologist [facility] HIV AB/AG Nonreactive Nonreactive [facility] Comment:HIV-1 p24 Ag and/or HIV-1/HIV-2 Ab not detected.A test result that is nonreactive does not exclude thepossibility of exposure to or infection with HIV-1 and/orHIV-2. Nonreactive results in this assay for individualswith prior exposure to HIV-1 and/or HIV-2 may be due toantigen and antibody levels that are below the limit ofdetection of this assay.The [employer] HIV Ag/Ab Combo assay result andsupplemental assay results should be interpreted inconjunction with the patient's clinical presentation,history and other laboratory results. If the results areinconsistent with clinical evidence, additional testing issuggested to confirm the result. Blood Venous blood specimen / Unknown 01/20/2025 3:12 PM EDT 01/20/2025 4:09 PM EDT us Molly Yost MD LAB BLOOD ORDERAB LES Final Result Performing Organization Address [facility] [place]/ZIP Co de Phone Number [facility] [address] [place] [phone] * HPV mRNA E6/E7 w/Reflex to HPV Genotypes 16, 18/45 (06/26/2023 11:25 AM EDT) HPV nRNA E6/E7 Not Detected Not Detected [facility] Comment:Methodology: Transcr iption-Mediated AmplificationThis assay detects E6/E7 viral messenger RNA (mRNA) from 14high-risk HPV types (16,18,31,33,35,39,45,51,52,56,58,59,66,68).Cervical sources are required for HPV testing.If a vaginal source from a patient who has had atotal hysterectomy with removal of cervix wassubmitted, please contact the testing laboratoryfor alternative testing options.For additional information, please refer [email or web address].Oriense/faq/ZWZ254n5(This link if provided for information/educational purposes only.)THIS TEST WAS PERFORMED AT:[facility] [place] [phone] WALLACE MD HPV mRNA E6/E7 [facility] HPV 16 RNA [facility] HPV 18/45 RNA [facility] 06/26/2023 11:2 5 AM EDT 06/27/2023 7:20 AM EDT us Diogo Corrales [facility] CYTOLOGY ORDERABLES F inal Result [facility] [address] [place] [address] [phone] * Pap Smear (06/26/2023 11:25 AM EDT) 06/26/2023 11:2 5 AM EDT 06/27/2023 7:20 AM EDT Narrative [facility] - 07/01/2023 8:45 AM EDT ----- ------- Name: Cindy Mays/Sex: 47/F : 1975 [id number] Unit#: [id number] Attend Dr: DIOGO CORRALES [facility] Re06/26/23 Status: DEP REF [facility] Disch: ----- ------- SPEC : [id number] RECD: 06/27/23 STATUS: SHITAL ROTH NUM: [id number] DEONTE: 06/26/[address] [facility] DR: DIOGO CORRALES [facility] ENTERED: 06/27/23 SP TYPE: Pap Smr OTHR DR: ORDERED: Pap Smear Interpretation Satisfactory for evaluation. Mild inflammation. Negative for intraepithelial lesion or malignancy. HPV mRNA E6/E7: NOT DETECTED This assay detects E6/E7 viral messenger RNA (mRNA) from 14 high-risk HPV types (16, 18, 31, 33, 35, 39, 45, 51, 52, 56, 58, 59, 66, 68) HPV testing performed by [facility], [place], [place]. See reference laboratory pion of the EMR for entire report. Clinical Information LMP: Unknown date Previous PAP test: 2018, WNL Material Received ThinPrep-Vaginal/Cervical ----- ------- Signed (signature on file) TAMEKA Oreilly (ASCP) 07/01/23 0845 ----- ------- END OF REPORT Diogo Corrales [facility] CYTOLOGY ORDERABLES F inal Result [facility] [address] [place] [address] [phone] from Last 3 Months or Most Recently Relevant to Health Maintenance Insurance [employer] C3 Care Teams Mechanical Maintenance Engineer Relationship Specialty Start Date End Date Molly Narayan MD [address] [place] [phone] PCP - General Internal Medicine 01/02/23 Carlee Thomas, TREY [address] [place] [address] [phone] Registered Nurse Family Medicine 07/07/25 Freda Saldivar 07/07/25
--- OUTSIDE RECORDS SUMMARY | 2025-08-24 19:34 | XMS_ITS | Encounter Summary ---
Author Organization [employer] Address 75 [facility] 7t [place] [address] Care Team Providers Care Box Order Person Name Role Phone Al Canela Primary Care Provider Unavail able Molly Narayan MD Primary Care Pro vider Carlee Thomas RN Unavailable [phone] Freda Saldivar Unavailable Reason for Visit * Reason Onset Date Comments triage 10/05/2022 Encounter Details Date Type Department Care Team (Late st Contact Info) Description 10/05/2022 Telephone [facility] [address] [place], [place] [phone] Al Canela AGNP triage Social History Tobacco [...] PM EST Attempted to contact Pt with [place] Refractory Grinder Operator ID [id number], left message to call [facility] * Telephone Encounter - Aysharadhavalentina [...] accepted this outcome Please contact pt at [phone] Kiswahili Speaker. documented in this encounter Plan of Treatment Upcoming Encounters Date Type Department Care Team (Late st Contact Info) Description 11/12/2025 11:30 AM EST Office Visit [facility] [address] [place] [address] [phone] Molly Narayan MD [address] [place] [phone] documented as of this encounter Visit Diagnoses Not on filedocumented in this encounter Care Teams Box Order Person Relationship Specialty Start Date End Date Al Canela AGNP PCP - General Family Medicine 09/14/22 01/01/23 Molly Narayan MD [address] [place] [address] [phone] PCP - General Internal Medicine 01/02/23 Carlee Thomas RN [address] [place] [address] [phone] Registered Nurse Family Medicine 07/07/25 Freda Saldivar 07/07/25 documented as of this encounter
--- OUTSIDE RECORDS SUMMARY | 2025-08-24 19:34 | XMS_ITS | Encounter Summary ---
Author Organization [employer] Address 75 [facility] 7t [place] [address] Care Team Providers Care Elementary Assistant Teacher Name Role Phone Al Canela Primary Care Provider Unavail able Molly Narayan MD Primary Care Pro vider Carlee Thomas RN Unavailable [phone] Freda Saldivar Unavailable Reason for Visit * Reason Onset Date Comments triage 12/28/2022 Encounter Details Date Type Department Care Team (Late st Contact Info) Description 12/28/2022 Telephone [facility] [address] [place], [place] [phone] Al Canela AGNP triage Social History Tobacco [...] 12/28/2022 1:11 PM EDT Triage call with [employer] Mail Clerk ID [id number] Pt reports waking up last 2 nights [...] area. Pt is advised to come to [facility] to be seen today and Pt [...] Description 11/12/2025 11:30 AM EST Office Visit [facility] [address] [place], [place] [phone] Molly Narayan MD [address] [place] [phone] documented as of this encounter Visit Diagnoses Not on filedocumented in this encounter Care Teams Elementary Assistant Teacher Relationship Specialty Start Date End Date Al Canela AGNP PCP - General Family Medicine 09/14/22 01/01/23 Molly Narayan MD [address] [place] [address] [phone] PCP - General Internal Medicine 01/02/23 Carlee Thomas, TREY [address] [place] [address] [phone] Registered Nurse Family Medicine 07/07/25 Freda Saldivar 07/07/25 documented as of this encounter
--- OUTSIDE RECORDS SUMMARY | 2025-08-24 19:34 | XMS_ITS | Encounter Summary ---
Author Organization [employer] Address [address] [place] [address] 7t [place] [address] Care Team Providers Care Park Interpretive Ranger Name Role Phone Al Canela MILEY Primary Care Provider Unavail able Molly Narayan MD Primary Care Pro vider Carlee Thomas RN Unavailable [phone] Freda Saldivar Unavailable Reason for Visit * Reason Comments Med Refill Encounter Details Date Type Department Care Team (Late Contact Info) Description 12/28/2022 Refill [facility] MED[facility] [address] [place], [place] [phone] Name, MD [place] [address] [place], [place] [phone] Subclinical hypothyroidism Social History Tobacco Use Types [...] Department Care Team (Late Contact Info) Description 11/12/2025 11:30 AM EST Office Visit [facility] MED[facility] [address] [place] [phone] Molly Narayan MD [address] [place], [place] [phone] documented as of this encounter Visit Diagnoses Diagnosis Subclinical hypothyroidism Other specified acquired hypothyroidism documented in this encounter Care Teams Park Interpretive Ranger Relationship Specialty Start Date End Date Al Canela AGNP PCP - General Family Medicine 09/14/22 01/01/23 Molly Narayan MD [address] [place] [phone] PCP - General Internal Medicine 01/02/23 Carlee Thomas, TREY [address] [place] [phone] Registered Nurse Family Medicine 07/07/25 Freda Saldivar 07/07/25 documented as of this encounter
--- OUTSIDE RECORDS SUMMARY | 2025-08-24 19:34 | XMS_ITS | Encounter Summary ---
Author Organization [employer] Address 75 [facility] 7t [place] [address] Care Team Providers Care Athletic Gear Custodian Name Role Phone lA Canela Primary Care Provider Unavail able Molly Narayan MD Primary Care Pro vider Carlee Thomas RN Unavailable [phone] Freda Saldivar Unavailable Reason for Visit * Reason Onset Date Comments Med Refill 12/28/2022 Encounter Details Date Type Department Care Team (Late st Contact Info) Description 12/28/2022 Telephone [facility] MEDICINE [address] [place], [place] [phone] Al Canela AGNP Med Refill Social History [...] Description 11/12/2025 11:30 AM EST Office Visit [facility] MEDICINE [address] [place], [place] [phone] Molly Narayan MD [address] [place] [address] [phone] documented as of this encounter Visit Diagnoses Not on filedocumented in this encounter Care Teams Athletic Gear Custodian Relationship Specialty Start Date End Date Al Canela AGNP PCP - General Family Medicine 09/14/22 01/01/23 Molly Narayan MD [address] [place] [address] [phone] PCP - General Internal Medicine 01/02/23 Carlee Thomas, TREY [address] [place] [address] [phone] Registered Nurse Family Medicine 07/07/25 Freda Saldivar 07/07/25 documented as of this encounter
== END 2025-08-24 13:41 | disposition home or self-care (01) ==
LOC: HO.HHCL 13:40
PROVIDERS: PCP Student in an Organized Health Care Education/Training Program; Visit Provider Student in an Organized Health Care Education/Training Program
DX: Z00.00 Encounter for general adult medical examination without abnormal findings (principal); E78.5 Hyperlipidemia, unspecified; E03.9 Hypothyroidism, unspecified
CPT/HCPCS: 36415; 80053; 80061; 83036; 84439; 84443

== ENCOUNTER 2025-09-08 11:16 | Outpatient (REF) | payer MEDICAID, SELFPAY ==
--- OUTSIDE RECORDS SUMMARY | 2025-09-07 15:20 | XMS_ITS | Encounter Summary ---
Author Organization [employer] Address 75 [facility] 7t [place] [address] Care Team Providers Care Community Coordinator For High School Name Role Phone Molly Narayan MD Primary Care Pro vider Carlee Thomas RN Unavailable [phone] Freda Saldivar Unavailable Reason for Visit * Reason Comments Allergic Reaction Encounter Details Date Type Department Care Team (Late st Contact Info) Description 09/07/2025 3:20 PM EST Office Visit [facility] [address] [place] [address] [phone] Michoacano Mulligan MD [address] [place], [place] [phone] Angioedema of lips, initial encounter (Primary Dx); Flu-like symptoms Social History Tobacco Use Types Packs/Day Years [...] Sign Reading Time Taken Comments Blood Pressure 113/77 09/07/2025 1:56 PM EST Pulse 83 09/07/2025 1:56 PM EST Temperature 36.6 C (97.9 F) 09/07/2025 1:56 PM EST Respiratory Rate 18 09/07/2025 1:56 PM EST Oxygen Saturation 99% 09/07/2025 1:56 PM EST Inhaled Oxygen Concentration - - Weight 62.6 kg (138 lb) 09/07/2025 1:56 PM EST Height - - Body Mass Index 23.69 07/06/2025 11:27 AM EDT documented in this encounter Progress Notes * Michoacano Alcaraz MD - 09/07/2025 3:20 PM EST SUBJECTIVE Cindy Lynn is a 49 y.o. female who presents for Allergic Reaction. Cindy Lynn, 49 years 49 year old female here as a sick visit with c/o new onset of tongue and upper lip swelling after taking 2 days worth of Metronidazole and Augmentin prescribed at an [facility] for presumptive URI and Vaginosis?UTI ( details are unclear Review of Systems Constitutional: Negative for fever. HENT: Negative for sore throat. Respiratory: Negative for cough and shortness of breath. Cardiovascular: Negative for chest pain. Gastrointestinal: Negative for abdominal pain. Neurological: Negative for headaches. Allergies[1] OBJECTIVE Vitals: 09/07/25 1356 BP: 113/77 BP Location: Right arm Patient Position: Sitting BP Cuff Size: Adult Pulse: 83 Resp: 18 Temp: 97.9 ??F (36.6 ??C) TempSrc: Temporal SpO2: 99% Weight: 138 lb (62.6 kg) Physical Exam Vitals reviewed. Constitutional: Appearance: Normal appearance. HENT: Head: Normocephalic and atraumatic. Right Ear: External ear normal. Left Ear: External ear normal. Nose: Nose normal. Mouth/Throat: Mouth: Mucous membranes are moist. Tongue: No lesions. Palate: No mass. Pharynx: Oropharynx is clear. No pharyngeal swelling. Tonsils: No tonsillar exudate. Comments: Upper lip swelling Eyes: Conjunctiva/sclera: Conjunctivae normal. Cardiovascular: Rate and Rhythm: Normal rate and regular rhythm. Pulmonary: Effort: Pulmonary effort is normal. No tachypnea or respiratory distress. Breath sounds: Normal breath sounds. No stridor. No wheezing. Skin: General: Skin is warm. Neurological: Mental Status: She is alert. Mental status is at baseline. Assessment/Plan Problem List Items Addressed This Visit Angioedema of lips - Primary Patient here for a new onset of angioedema (swelling of lips and tongue ) as well as itching and rash on both feet due to 2 days of Augmentin and Metronidazole use prescribed at Urgent Care center for presumptive URI and UTI? Vaginosis? Pt today states aside from remaining upper lip swelling , she no longer has sorethroat or difficulty swallowing. Tongue is normal on exam. Feet itching went away after discontinuation of medications Rapid testing today: Flu, Covid and Strep Negative, UA Normal. Plan: No further antibiotics treatment. Throat Bacterial Cx sent. Short Prednisone taper and Benadryl PRN Discussed with her ER precautions regarding angioedema. Patient verbalized understanding Relevant Medications predniSONE (Deltasone) 20 MG tablet diphenhydrAMINE (BENADryl) 25 MG tablet Other Visit Diagnoses Flu-like symptoms Relevant Orders Influenza B (ID NOW Rapid Molecular) (Completed) Influenza A (ID NOW Rapid Molecular) (Completed) POCT Rapid COVID Ag (Completed) POCT ID NOW Rapid Strep A manually resulted (Completed) POCT urinalysis dipstick manually resulted (CPT 97171) (Completed) Culture, Throat This note was drafted using Ambient (AI) technology. The patient/patient's guardian has been informed and has consented to the use of this technology: Yes Future Appointments Date Time Provider Department Center 11/12/2025 11:30 AM Molly Yost MD MEDICINE [facility] [1] Allergies Allergen Reactions Augmentin [Amoxicillin-Pot Clavulanate] Angioedema Pt was taking Metronidazole and Augmentin at the same time, unclear which Antibiotic was responsible for angioedema Metronidazole Angioedema Pt was taking Metronidazole and Augmentin at the same time, unclear which Antibiotic was responsible for angioedema documented in this encounter Miscellaneous Notes * Assessment & Plan Note - Michoacano Alcaraz MD - 09/07/2025 3:28 PM EST Associated Problem(s): Angioedema of lips Patient here for a new onset of angioedema (swelling of lips and tongue ) as well as itching and rash on both feet due to 2 days of Augmentin and Metronidazole use prescribed at Urgent Care center for presumptive URI and UTI? Vaginosis? Pt today states aside from remaining upper lip swelling , she no longer has sorethroat or difficulty swallowing. Tongue is normal on exam. Feet itching went away after discontinuation of medications Rapid testing today: Flu, Covid and Strep Negative, UA Normal. Plan: No further antibiotics treatment. Throat Bacterial Cx sent. Short Prednisone taper and Benadryl PRN Discussed with her ER precautions regarding angioedema. Patient verbalized understanding documented in this encounter Plan of Treatment Upcoming Encounters Date Type Department Care Team (Late st Contact Info) Description 11/12/2025 11:30 AM EST Office Visit [facility] [address] [place] [phone] Molly Narayan MD [address] [place] [phone] Scheduled Orders Name Type Priority Associated Diagnoses Orde r Schedule Culture, Throat Microbiology Routine Flu-like symptoms Ordered: 09/07/2025 documented as of this encounter Procedures Procedure Name Priority Date/Time Associated Diagnosis Comments POCT INFLUENZA B (ID NOW RAPID MOLECULAR) Routine 09/07/2025 3:16 PM EST Flu-like symptoms POCT INFLUENZA A (ID NOW RAPID MOLECULAR) Routine 09/07/2025 3:16 PM EST Flu-like symptoms POC MORELOS ID NOW STREP A Routine 09/07/2025 3:14 PM EST Flu-like symptoms POCT RAPID COVID ANTIGEN Routine 09/07/2025 3:14 PM EST Flu-like symptoms POCT URINALYSIS DIPSTICK Routine 09/07/2025 3:13 PM EST Flu-like symptoms documented in this encounter Results * Influenza A (ID NOW Rapid Molecular) (09/07/2025 3:16 PM EST) Pathologist [facility] Influenza A Negative Negative, Indeterminate [facility] Swab 09/07/2025 3:16 PM EST Michoacano Alcaraz MD POINT OF CARE TEST EN TER/EDIT ORDERABLES Final Result [facility] [address] [place] [address] [phone] * Influenza B (ID NOW Rapid Molecular) (09/07/2025 3:16 PM EST) Pathologist [facility] Influenza B Negative Negative, Indeterminate [facility] Swab 09/07/2025 3:16 PM EST us Michoacano Alcaraz MD POINT OF CARE TEST EN TER/EDIT ORDERABLES Final Result [facility] [address] [place] [phone] * POCT ID NOW Rapid Strep A manually resulted (09/07/2025 3:14 PM EST) Rapid Strep A Screen Negative Negative, None Detected Swab 09/07/2025 3:14 PM EST us Michoacano Alcaraz MD POINT OF CARE TEST EN TER/EDIT ORDERABLES Final Result * POCT Rapid COVID Ag (09/07/2025 3:14 PM EST) [facility] Rapid COVID Ag Negative Swab 09/07/2025 3:14 PM EST Result Abdulkadir Alcaraz MD POINT OF CARE TEST EN TER/EDIT ORDERABLES Final Result * POCT urinalysis dipstick manually resulted (CPT 36940) (09/07/2025 3:13 PM EST) Pathologist [facility] Color, UA Yellow Clarity, UA Clear Glucose, UA Negative Bilirubin, UA Negative Ketones, UA Negative Spec Grav, UA 1.025 Blood, UA Negative Negative, None Detected pH, UA 1.0 Protein, UA Moderate Comment:30MG Urobilinogen, UA 0.2 Leukocytes, UA Negative Negative, Rare, Trace, 1+ (17), 2+ (35), 3+ (70), Trace (15) Nitrite, UA Negative Negative, None Detected Appearance, UA OK Urine (Urine, Random) 09/07/2025 3:13 PM EST Result Abdulkadir Alcaraz MD POINT OF CARE TEST EN TER/EDIT ORDERABLES Final Result documented in this encounter Visit Diagnoses Diagnosis Angioedema of lips, initial encounter- Primary Flu-like symptoms documented in this encounter Additional Health Concerns Assessment Noted Time PHQ-9 Depression Total Score: 16 07/03/ 024 11:50 AM EDT documented as of this encounter Care Teams Community Coordinator For [employer] Relationship Specialty Start Date End Date Molly Narayan MD [address] [place], [place] [phone] PCP - General Internal Medicine 01/02/23 Carlee Thomas RN [address] [place], [place] [phone] Registered Nurse Family Medicine 07/07/25 Freda Saldivar 07/07/25 documented as of this encounter
--- OUTSIDE RECORDS SUMMARY | 2025-09-08 11:20 | XMS_ITS | Encounter Summary ---
Author Organization [employer] Address [address] [place] [address] 7 [place] [address] Care Team Providers Care Brick Siding Applicator Name Role Phone Molly Narayan MD Primary Care Pro vider Carlee Thomas RN Unavailable [phone] Freda Saldivar Unavailable Reason for Visit * Reason Onset Date Comments Results 08/24/2025 Encounter Details Date Type Department Care Team (Latest Contact Info) Description 08/24/2025 Results Follow-Up [facility] [address] [place] [phone] Molly Narayan MD [address] [place] [address] Cologuard colon cancer screening, Comprehensive Metabolic Panel, Lipid Panel, Standard, Additional followed-up results: 3 Social History Tobacco Use Types Packs/Day Years [...] encounter Miscellaneous Notes * Telephone Encounter - Summer Hernandez RN - 08/25/2025 9:58 AM EST Telephone call to pt via [employer] ([employer]) [phone]. Reviewed labs with pt: - elevated thyroid level. Pt states she is not taking levothyroxine consistently. Educated on importance of taking daily, fasting, before breakfast for most effective use. Reminded to repeat labs in 8 weeks - normal A1C - elevated cholesterol panel. Educated on healthy, low fat diet and lifestyle modifications. Pt open to omega 3 supplement - reminded of next appointment 11/11 Pt verbalized understanding, no further questions. * Telephone Encounter - Summer Hernandez RN - 08/25/2025 9:50 AM EST ----- Message from Molly Yost MD sent at 08/24/2025 8:44 PM EST ----- Please inform pt of below labs -TSH slight elevated at 5.37 w normal T4 -hb1AC wnl -lipids : total ch 225,LDL 151, HDL 53, ASCVD 1.1% ( no indications for statins) ----- Please confirm w pt is she is taking consistently her levothyroxine every morning in fasting , If pt confirms she is please let me know so I can increase dose of med with plan to repeat TFT in 6 weeks , if pt states not to be compliant please advise daily taking med and in that case would repeat TSH/T4 in 8 weeks to monitor In regards Hyperlipidemia please advise low fat diet, no indication for meds , if pt interested canprescribe omega 3 daily -please remind pt up upcoming apt w me in 10/2025 Thanks ----- Message ----- From: Alea Jarquin MA Sent: 07/07/2025 9:50 AM EST To: Molly Yost MD documented in this encounter Plan of Treatment Upcoming Encounters Date Type Department Care Team (Late st Contact Info) Description 11/12/2025 11:30 AM EST Office Visit [facility] [address] [place] [phone] Molly Narayan MD [address] [place] [phone] documented as of this encounter Visit Diagnoses Not on filedocumented in this encounter Additional Health Concerns Assessment Noted Time PHQ-9 Depression Total Score: 16 024 11:50 AM EDT documented as of this encounter Care Teams Brick Siding Applicator Relationship Specialty Start Date End Date Molly Narayan MD [address] [place] [phone] PCP - General Internal Medicine 01/02/23 Carlee Thomas, TREY [address] [place] [phone] Registered Nurse Family Medicine 07/07/25 Freda Saldivar 07/07/25 documented as of this encounter
--- OUTSIDE RECORDS SUMMARY | 2025-09-08 11:20 | XMS_ITS | Clinical Summary ---
Author Organization [facility] Address [address] [place], [place] [phone] Phone Care Team Providers Care Creative Art Therapist Name Role Phone Pcp, Unknown Primary Care [...] file Medical Devices Not on file Insurance [facility] [place] [address] [facility] MCO CARE[employer]US O Member Subscriber Plan / Payer (Ef fective 2014-Present) Name:Compa Ricci Relation to Subscriber:Self Name:Compa Ricci Payer ID:[id number] Group ID:[id number] Type:Medicaid Address: [address] [place], [place] [address] ESSENTIAL Roomle GmbHHEALTH MCO Empathy [facility]PROT[facility] [place] [address] Expert Medical NavigationHEALTH MCO Rodin TherapeuticsPROTESTANT DEACONESS [facility] CAREPLUS Member Subscriber Plan / Payer (Ef fective 2014-Present) Name:Compa Ricci Relation to Subscriber:Self Name:Compa Ricci Payer ID:[id number] Group ID:[id number] Type:Medicaid [address] Member Subscriber Plan / Payer (Ef fective 2014-Present) Name:Compa Ricci Relation to Subscriber:Self Name:Compa Ricci Payer ID:[id number] Group ID:[id number] Type:Medicaid [address] Member Subscriber Plan / Payer (Ef fective 2014-Present) Name:Compa Ricci Relation to Subscriber:Self Name:Compa Ricci Payer ID:[id number] Group ID:[id number] Type:Medicaid Address: [address] Care Teams Creative Art Therapist Relationship Specialty Start Date End Date Pcp, Unknown PCP - General 09/03/14 Additional Source Comments The information contained in this document represents components of the legal health record. It is not the complete legal health record.[facility]
--- OUTSIDE RECORDS SUMMARY | 2025-09-08 11:20 | XMS_ITS | Encounter Summary ---
Author Organization [employer] Address [address] [place] [address] [place] [address] Care Team Providers Care Arch Cushion Press Operator Name Role Phone Molly Narayan MD Primary Care Pro vider Carlee Thomas RN Unavailable [phone] Freda Saldivar Unavailable Reason for Visit * Reason Onset Date Comments Nurse Triage 09/06/2025 Encounter Details Date Type Department Care Team ([facility] st Contact Info) Description 09/06/2025 Telephone [facility] [address] [place], [place] [phone] Molly Narayan MD [address] [place], [place] [phone] Nurse Triage Social History Tobacco Use Types Packs/Day Years [...] encounter Miscellaneous Notes * Telephone Encounter - Jabari Alexander RN - 09/06/2025 3:57 PM EST TC placed to patient using BLS #ID [id number]. Patient reported she was seen at an Urgent care for UTI symptoms and fungal infection per pt. Patient reported she has taken 4 doses of Metronidazole, and this am she experienced lip swelling, tongue swelling that has resolved, and itchy feet. Patient was speaking in full sentences, denies any drooling, difficulty swallowing or SOB. RN advised patient to stop taking the antibiotics now. RN advised patient to come into [facility] tomorrow to be evaluated and to bring the medications that were prescribed from the Urgent care so they can be put on her allergy list. RN advised patient if her tongue starts to swell or experience any difficulty joselyn athing to call 911 immediately and report to the ED for further evaluation. Patient verbalized understanding. Protocol Used: Itching - Localized (Adult) Protocol-Based Disposition: See in Office or Video Visit within 3 Days Video visit offer not recorded Positive Triage Questions: * Patient wants to be seen * Mild localized itching * All higher-acuity triage questions were negative. * Telephone Encounter - Eber Jed - 09/06/2025 1:45 PM EST Symptoms: Lip Swelling, Itching - No Rash Outcome: Schedule an urgent appointment (within 4 hours) or talk to a nurse or provider soon Reason: Severe itching now The caller accepted this outcome. Contact pt at [phone](korean) Pt currently taking meds that were prescribed by urgent care she has been experiencing some side effects she is scared . Took med at 5am and tongue was swollen which has gone down . Lips still swollen and foot itching documented in this encounter Plan of Treatment Upcoming Encounters Date Type Department Care Team (Late st Contact Info) Description 11/12/2025 11:30 AM EST Office Visit [facility] [address] [place] [phone] Molly Narayan MD [address] [place] [address] documented as of this encounter Visit Diagnoses Not on filedocumented in this encounter Additional Health Concerns Assessment Noted Time PHQ-9 Depression Total Score: 16 024 11:50 AM EDT documented as of this encounter Care Teams Arch Cushion Press Operator Relationship Specialty Start Date End Date Molly Narayan MD [address] [place] [id number] PCP - General Internal Medicine 01/02/23 Carlee Thomas RN [address] [place] [address] Registered Nurse Family Medicine 07/07/25 Freda Saldivar 07/07/25 documented as of this encounter
--- OUTSIDE RECORDS SUMMARY | 2025-09-08 11:20 | XMS_ITS | Clinical Summary ---
Author Organization [facility] Address [address] [place] [address] Phone Care Team Providers Care Equipment Technician Name Role Phone Physician, Pcp Unknown Primary [...] topic Insurance MEDICAID - [place] Care Teams Equipment Technician Relationship Specialty Start Date End Date Physician, Pcp Unknown PCP - General 02/04/25
--- OUTSIDE RECORDS SUMMARY | 2025-09-08 11:20 | XMS_ITS | Encounter Summary ---
Author Organization [employer] Address [address] [facility] 7 [place] [address] Care Team Providers Care Rn Relief Charge Name Role Phone Molly Narayan MD Primary Care Pro vider Carlee Thomas RN Unavailable [phone] Freda Saldivar Unavailable Reason for Visit * Reason Comments Med Refill Encounter Details Date Type Department Care Team (Late st Contact Info) Description 05/19/[address] [facility] [address] [place], [place] [phone] Molly Narayan MD [address] [place] [address] Social History Tobacco Use Types Packs/Day Years [...] Description 11/12/2025 11:30 AM EST Office [address] [facility] [address] [place] [address] Molly Narayan MD [address] [place] [address] documented as of this encounter Visit Diagnoses Not on filedocumented in this encounter Additional Health Concerns Assessment Noted Time PHQ-9 Depression Total Score: 12 023 11:43 AM EDT documented as of this encounter Care Teams Rn Relief Charge Relationship Specialty Start Date End Date Molly Narayan MD [address] [place] [phone] PCP - General Internal Medicine 01/02/23 Carlee Thomas RN [address] [place] [address] Registered Nurse Family Medicine 07/07/25 Freda Saldivar 07/07/25 documented as of this encounter
--- OUTSIDE RECORDS SUMMARY | 2025-09-08 11:21 | XMS_ITS | Encounter Summary ---
Author Organization [employer] Address [address] [place] [address] Care Team Providers Care Post Tronic Machine Operator Name Role Phone Molly Narayan MD Primary Care Pro vider Carlee Thomas RN Unavailable [phone] Freda Saldivar Unavailable Reason for Visit * Reason Comments Care Coordination [facility] Freda marrero telephone call outreach Encounter Details Date Type Department Care Team (Latest Contact Info) Description 09/07/2025 Patient Outreach [facility] [address] [place] [address] Molly Narayan MD [address] [place] [address] Care Coordination ([facility] IVY Saldivar telephone call outreach ) Social History Tobacco Use Types Packs/Day Years [...] PM EDT documented as of this encounter Progress Notes * Freda Saldivar - 09/07/2025 12:14 PM EST CHW Freda Saldivar placed outbound call to patient in regards to rescheduling missed initial assessment appointment on 07/27/25 for Adult Complex Care program services. Patient's name and were confirmed. Initial Assessment appointment scheduled for 09/27/25 at 10:30 AM. CHW will set up an appointment reminder and will notify CM. CHW provided contact information of [phone] for any questions or concerns. documented in this encounter Plan of Treatment Upcoming Encounters Date Type Department Care Team ([facility] Contact Info) Description 11/12/2025 11:30 AM EST Office Visit [facility] [address] [place] [address] Molly Narayan MD [address] [place], [place] [phone] documented as of this encounter Visit Diagnoses Not on filedocumented in this encounter Additional Health Concerns Assessment Noted Time PHQ-9 Depression Total Score: 16 024 11:50 AM EDT documented as of this encounter Care Teams Post Tronic Machine Operator Relationship Specialty Start Date End Date Molly Narayan MD [address] [place] [address] [phone] PCP - General Internal Medicine 01/02/23 Carlee Thomas RN [address] [place] [phone] Registered Nurse Family Medicine 07/07/25 Freda Saldivar 07/07/25 documented as of this encounter
--- OUTSIDE RECORDS SUMMARY | 2025-09-08 11:21 | XMS_ITS | Encounter Summary ---
Author Organization [employer] Address [address] [place] [address] [place] [address] Care Team Providers Care Supervisor Shuttle Fitting Name Role Phone Molly Narayan MD Primary Care Pro vider Carlee Thomas RN Unavailable [phone] Freda Saldivar Unavailable Reason for Visit * Reason Onset Date Comments Appointment Request 02/18/2025 Encounter Details Date Type Department Care Team ([facility] st Contact Info) Description 02/18/2025 Telephone [facility] [address] [place], [place] [phone] Molly Narayan MD [address] [place], [place] [phone] Appointment Request Social History Tobacco Use Types [...] uber never arrived. Please contact pt at [phone]. (Singaporean Speaker) documented in this encounter Plan of Treatment Upcoming Encounters Date Type Department Care Team (Late st Contact Info) Description 11/12/2025 11:30 AM EST Office Visit [facility] [address] [place] [address] Molly Narayan MD [address] [place] [address] documented as of this encounter Visit Diagnoses Not on filedocumented in this encounter Additional Health Concerns Assessment Noted Time PHQ-9 Depression Total Score: 16 024 11:50 AM EDT documented as of this encounter Care Teams Supervisor Shuttle Fitting Relationship Specialty Start Date End Date Molly Narayan MD [address] [place] [address] [phone] PCP - General Internal Medicine 01/02/23 Carlee Thomas RN [address] [place] [address] [phone] Registered Nurse Family Medicine 07/07/25 Freda Saldivar 07/07/25 documented as of this encounter
--- OUTSIDE RECORDS SUMMARY | 2025-09-08 11:21 | XMS_ITS | Encounter Summary ---
Author Organization [employer] Address [address] [place] [address] 7 [place] [address] Care Team Providers Care Relief Salesperson Name Role Phone Molly Narayan MD Primary Care Pro vider Carlee Thomas RN Unavailable [phone] Freda Saldivar Unavailable Reason for Visit * Reason Comments Med Refill Encounter Details Date Type Department Care Team (Late st Contact Info) Description 09/21/2023 Refill [facility] [address] [place], [place] [phone] Molly Narayan MD [address] [place], [place] [phone] Social History Tobacco Use Types Packs/Day Years [...] Description 11/12/2025 11:30 AM EST Office Visit [facility] [address] [place] [phone] Molly Narayan MD [address] [place] [address] documented as of this encounter Visit Diagnoses Not on filedocumented in this encounter Additional Health Concerns Assessment Noted Time PHQ-9 Depression Total Score: 12 023 11:43 AM EDT documented as of this encounter Care Teams Relief Salesperson Relationship Specialty Start Date End Date Molly Narayan MD [address] [place] [address] PCP - General Internal Medicine 01/02/23 Carlee Thomas RN [address] [place] [address] Registered Nurse Family Medicine 07/07/25 Freda Saldivar 07/07/25 documented as of this encounter
--- OUTSIDE RECORDS SUMMARY | 2025-09-08 11:21 | XMS_ITS | Encounter Summary ---
Author Organization [employer] Address [address] [place] [address] 7 [place] [address] Care Team Providers Care Filter Filler Name Role Phone Molly Narayan MD Primary Care Pro vider Carlee Thomas RN Unavailable [phone] Freda Saldivar Unavailable Reason for Visit * Reason Comments Med Refill Encounter Details Date Type Department Care Team (Late st Contact Info) Description 09/01/2023 Refill [facility] [address] [place], [place] [phone] Molly Narayan MD [address] [place], [place] [phone] Social History Tobacco Use Types Packs/Day Years [...] Description 11/12/2025 11:30 AM EST Office Visit [facility] [address] [place] [address] Molly Narayan MD [address] [place] [address] documented as of this encounter Visit Diagnoses Not on filedocumented in this encounter Additional Health Concerns Assessment Noted Time PHQ-9 Depression Total Score: 12 023 11:43 AM EDT documented as of this encounter Care Teams Filter Filler Relationship Specialty Start Date End Date Molly Narayan MD [address] [place] [phone] PCP - General Internal Medicine 01/02/23 Carlee Thomas RN [address] [place] [phone] Registered Nurse Family Medicine 07/07/25 Freda Saldivar 07/07/25 documented as of this encounter
--- OUTSIDE RECORDS SUMMARY | 2025-09-08 11:21 | XMS_ITS | Clinical Summary ---
Author Organization [employer] Address [address] [place] [address] [address] [place] [address] Care Team Providers Care Certified Hyperbaric Technician Name Role Phone Molly Narayan MD Primary Care Pro vider Carlee Thomas RN Unavailable [phone] Freda Saldivar Unavailable Allergies Active Allergy Reactions Criticality Noted Date Comments Amoxicillin-Pot Clavulanate Angioedema Medium 09/07/2025 Pt was taking Metronidazole and Augmentin at the same time, unclear which Antibiotic was responsible for angioedema Metronidazole Angioedema Medium 09/07/2025 Pt was taking Metronidazole and Augmentin at the same time, unclear which Antibiotic was responsible for angioedema Medications * This document contains information received from the source organization and may not represent a complete record from that organization. FLUoxetine (PROzac) 20 MG tablet TAKE 1 TABLET BY MOUTH EVERY DAY IN THE MORNING 90 tablet 10/26/19 Active levothyroxine (Synthroid, Levoxyl) 25 MCG tabletIndications :Subclinical hypothyroidism Take 1 tablet (25 mcg) by mouth before breakfast. 90 tablet 08/25/20 25 2025 Active omega-3 (fish oil) 1000 MG capsule Take 1 capsule (1,000 mg) by mouth Once per day. 90 capsule 1 08/25/20 25 2025 Active predniSONE (Deltasone) 20 MG tabletIndications :Asthma Take 2 tablets (40 mg) by mouth Once per day for 3 days, THEN 1 tablet (20 mg) Once per day for 2 days, THEN 0.5 tablets (10 mg) Once per day for 2 days. 9 tablet 09/07/20 2024 Active diphenhydrAMINE (BENADryl) 25 MG tabletIndications :Angioedema of lips, initial encounter Take 1 tablet (25 mg) by mouth every 8 (eight) hours if needed for itching or allergies. 30 tablet 09/07/20 25 2025 Active hydrOXYzine HCl (Atarax) 10 MG tablet TAKE 1 TABLET BY MOUTH EVERY 8 HOURS IF NEEDED FOR ITCHING OR ANXIETY. 30 tablet 3 02/11/20 24 2024 Discontinued(T herapy completed) cloNIDine (Catapres) 0.1 MG tabletIndications :Anxiety TAKE 1 TABLET BY MOUTH EVERYDAY AT BEDTIME 90 tablet 03/27/20 24 2024 Discontinued(T herapy completed) valACYclovir (Valtrex) 500 MG tablet TAKE 1 TABLET BY MOUTH 2 TIMES DAILY FOR 3 DAYS 6 tablet 1 05/20/20 24 2024 Discontinued(T herapy completed) DULoxetine (Cymbalta) [address] capsule TAKE 1 CAPSULE BY MOUTH EVERY DAY DO NOT CRUSH OR CHEW 30 capsule 1 10/12/19 25 2024 Discontinued(T herapy completed) levothyroxine (Synthroid, Levoxyl) 25 MCG tabletIndications :Subclinical hypothyroidism TAKE 1 TABLET (25 MCG) BY MOUTH BEFORE BREAKFAST 90 tablet 1 02/23/20 25 2024 Discontinued(R eorder (will not trigger notification to Pharmacy)) Active Problems Problem Noted Date Diagnosed Date Angioedema of lips 09/07/2025 Assessment & Plan (09/07/2025 3:28 PM EST): Patient here for a new onset of [...] ER precautions regarding angioedema. Patient verbalized understanding Swallowing problem 01/19/2025 Atypical chest pain 07/04/2024 Helicobacter pylori (H. pylori) infection 2023 Overview (01/27/2024): Urea breath test on 01/20/24 at [facility] is POS. Rx initially with [...] services PLAN: 1. Follow up with [facility] [place]: Recommended for follow-up: as needed 2. Patient goal is to maintain a stable mental health and practice self-care 3. Behavioral Recommendations a. Continue to attend individual therapy sessions with [facility] b. Utilize coping mechanisms to decrease symptoms c. Be added to wait list for psychopharmacology at [facility] Family problems 07/26/2023 Assessment & Plan [...] services PLAN: 1. Follow up with [facility] [place]: Recommended for follow-up: as needed 2. Patient goal is to maintain a stable mental health and practice self-care 3. Behavioral Recommendations a. Continue to attend individual therapy sessions with [facility] b. Utilize coping mechanisms to decrease symptoms c. Be added to wait list for psychopharmacology at [facility] Venous insufficiency of both lower extremities [...] of referral -vaccines: s/p hep Bx3-immune, covid [id number] x1, tdap 2022 -decrease vision referred to [...] -referred today -vaccines: s/p hep Bx3, covid 66c0-Cwgdpvoh today, tdap today -labs x annual exam [...] 7:15 PM EDT): -Brain MRI w/wo contrast 2018 [...] services PLAN: 1. Follow up with [facility] [place]: Recommended for follow-up: as needed 2. Patient goal is to maintain a stable mental health and practice self-care 3. Behavioral Recommendations a. Continue to attend individual therapy sessions with [facility] b. Utilize coping mechanisms to decrease symptoms c. Be added to wait list for psychopharmacology at [facility] Resolved Problems Problem Noted Date Diagnosed Date Resolved Date Facial swelling 01/19/2025 07/06/2025 Herpetic miranda 07/28/2023 11/12/2023 Vitamin D deficiency 05/23/2018 023 Depressive disorder 02/03/2013 04/10/20 23 Encounters Date Type Department Care Team Description 09/07/2025 3:20 PM EST Office Visit [facility] [address] [place] [phone] Michoacano Mulligan MD Angioedema of lips, initial encounter (Primary Dx); Flu-like symptoms 09/07/2025 Travel 09/07/2025 Patient Outreach [address] [address] Molly Narayan MD Care Coordination (C3 [facility] Freda Saldivar telephone call outreach ) 09/06/[address] [address] Molly Narayan MD Nurse Triage 08/25/2025 Orders Only [address] [address] Molly Narayan MD Subclinical hypothyroidism 08/24/2025 Results Follow-Up [address] [address] Molly Narayan MD Cologrd colon cancer screening, Comprehensive Metabolic Panel, Lipid Panel, Standard, Additional followed-up results: 3 08/13/2025 Results Follow-Up [address] [address] Molly Narayan MD BI Mammogram Screening Tomosynthesis Bilateral 07/29/2025 1:30 PM EST Office Visit [facility] [address] [place] [phone] Ted, Renae, OD White without pressure of peripheral retina of both eyes (Primary Dx); Congenital hypertrophy of retinal pigment epithelium; Pterygium of left eye; Presbyopia 07/29/2025 Travel 07/27/2025 Patient Outreach [address] [address] Molly Narayan MD Care Management (C3CM COMPLEX INITIAL ASSESSMENT/ ENROLLMENT-LVM) 07/26/[address] [address] Molly Narayan MD faviola recall 07/26/2025 Patient Outreach [address] [address] Molly Narayan MD Care Coordination (C3 -[facility] Saldivar telephone call outreach) 07/21/2025 Patient Outreach [address] [address] Molly Narayan MD 07/21/2025 Patient Outreach [address] [address] Molly Narayan MD Care Coordination (C3 -[facility] Saldivar telephone call outreach) 07/12/[address] [address] Molly Narayan MD Results 07/07/2025 Patient Outreach [address] [address] Molly Narayan MD [facility] 07/07/2025 Patient Outreach [address] [address] Molly Narayan MD Care Management (C3 -CHART REVIEW/) 07/07/2025 Patient Outreach [address] [address] Molly Narayan MD 07/06/2025 10:45 AM EDT Office Visit [address] [address] Molly Narayan MD Screening for colon cancer (Primary Dx); Memory loss; Hyperlipidemia, unspecified hyperlipidemia type; Hypothyroidism, unspecified type; Health care maintenance; Swallowing problem; Anxiety; Moderate episode of recurrent major depressive disorder (CMS/HCC) (HCC) 07/06/2025 Orders Only [address] [address] Molly Narayan MD Health care maintenance (Primary Dx) 07/06/2025 Travel 07/05/[address] [facility] [address] [place] [address] Molly Narayan MD chartprep 06/29/[address] [facility] [address] [place] [address] Molly Narayan MD Care Coordination (CHW outreach for SDOH housing search-LVM ) 06/29/[address] [facility] [address] [place] [address] Molly Narayan MD Pre-visit Planning (SDOH Screening [...] (138 lb) 09/07/2025 1:56 PM EST Height 162.6 cm (5' 4 ) 07/06/2025 11:27 AM EDT Body Mass Index 23.69 07/06/2025 11:27 AM EDT Plan of Treatment Upcoming Encounters Date Type Department Care Team (Late st Contact Info) Description 11/12/2025 11:30 AM EST Office Visit [facility] [address] [place] [address] Molly Narayan MD [address] [place] [address] Health Maintenance Due Date Last [...] 07/21/2026 07/21/2025 FOBT 07/22/2026 07/22/2025 Tobacco Screening 09/07/2026 09/07/2025 Mammogram 07/20/2027 07/20/2025, 02/14, 11/30/2021, Additional history [...] Priority Date/Time Associated Diagnosis Comments POCT INFLUENZA A (ID NOW RAPID MOLECULAR) Routine 09/07/2025 3:16 PM EST Flu-like symptoms POCT INFLUENZA B (ID NOW RAPID MOLECULAR) Routine 09/07/2025 3:16 PM EST Flu-like symptoms POC MORELOS ID NOW STREP A Routine 09/07/2025 3:14 PM EST Flu-like symptoms POCT RAPID COVID ANTIGEN Routine 09/07/2025 3:14 PM EST Flu-like symptoms POCT URINALYSIS DIPSTICK Routine 09/07/2025 3:13 PM EST Flu-like symptoms HEMOGLOBIN A1C Routine 08/24/2025 1:45 PM EST [...] Recently Relevant to Health Maintenance Results * Influenza B (ID NOW Rapid Molecular) (09/07/2025 3:16 PM EST) Influenza B Negative Negative, Indeterminate [facility] Swab 09/07/2025 3:16 PM EST Michoacano Alcaraz MD POINT OF CARE TEST EN TER/EDIT ORDERABLES Final Result Performing Organization Address [facility]/ZIP Co de Phone Number [facility] [address] [place] [phone] * Influenza A (ID NOW Rapid Molecular) (09/07/2025 3:16 PM EST) Influenza A Negative Negative, Indeterminate [facility] Swab 09/07/2025 3:16 PM EST Michoacano Alcaraz MD POINT OF CARE TEST EN TER/EDIT ORDERABLES Final Result Performing Organization Address [facility]/ZIP Co de Phone Number [facility] [address] [place] [address] [phone] * POCT ID NOW Rapid Strep A manually resulted (09/07/2025 3:14 PM EST) [facility] Rapid Strep A Screen Negative Negative, None Detected Swab 09/07/2025 3:14 PM EST us Michoacano Alcaraz MD POINT OF CARE TEST EN TER/EDIT ORDERABLES Final Result * POCT Rapid COVID Ag (09/07/2025 3:14 PM EST) [facility] Rapid COVID Ag Negative Swab 09/07/2025 3:14 PM EST us Michoacano Alcaraz MD POINT OF CARE TEST EN TER/EDIT ORDERABLES Final Result * POCT urinalysis dipstick manually resulted (CPT 20825) (09/07/2025 3:13 PM EST) [facility] Color, UA Yellow Clarity, UA Clear Glucose, [...] Urine (Urine, Random) 09/07/2025 3:13 PM EST us Michoacano Alcaraz MD POINT OF CARE TEST EN TER/EDIT ORDERABLES Final Result * (ABNORMAL) TSH (08/24/2025 1:45 PM EST) [facility] Thyroid Stimulating Hormone 5.37(H) 0.32 - 4.0 uIU/mL [facility] Comment:Note: A sustained TS H level above 2.5 uIU/mL may warrant further investigation. TSH 3rd Generation ([facility]) Blood Venous blood specimen / Unknown 08/24/2025 1:45 PM EST 08/24/2025 4:14 PM EST Molly Yost MD LAB BLOOD ORDERAB LES Final Result Performing Organization Address [facility] Co de Phone Number [facility] [address] [place] [phone] * T4, Free (08/24/2025 1:45 PM EST) Free T4 (Free Thyroxine) 0.83 0.71 - 1.85 ng/dL [facility] Blood Venous blood specimen / Unknown 08/24/2025 1:45 PM EST 08/24/2025 4:14 PM EST Molly Yost MD LAB BLOOD ORDERAB LES Final Result Performing Organization Address [facility] Co de Phone Number [facility] [address] [place] [phone] * Hemoglobin A1c (08/24/2025 1:45 PM EST) Hemoglobin A1c 5.6 <6.0 % [facility] Comment:Hemoglobin A1C Refer ence Range Adults: 4.8 - 6.0 % Non diabetic: < 6.0 % Goal: < 7.0 %Additional Action Suggested: > 8.0 %Note: Hemoglobin A1c results are invalid for patients with abnormal amounts of HbF. Blood transfusions may impact the HbA1c concentration in the patient sample. Estimated Average Glucose 114 mg/dL [facility] Comment:eAG = Estimated ave rage glucose which is %A1C expressed asaverage glucose, using the formula of the B4B-OpmniapWbnyxmz Glucose study (ADAG), Diabetes Care, Vol.31,#8,Apr. 2007 Blood Venous blood specimen / Unknown 08/24/2025 1:45 PM EST 08/24/2025 4:14 PM EST Molly Yost MD LAB BLOOD ORDERAB LES Final Result Performing Organization Address City/[facility]/ZIP Co de Phone Number [facility] [address] [place] [phone] * (ABNORMAL) Lipid Panel, Standard (08/24/2025 1:45 PM EST) Triglycerides 107 <150 mg/dL [facility] Comment:Desirable Triglyceri de: less than 150 mg/dLBorderline High Triglyceride 150-199 mg/dLHigh Triglyceride: 200-499 mg/dLVery High Triglyceride: greater than or equal to 5OO mg/dL Cholesterol 225(H) <200 mg/dL [facility] Comment:Desirable Cholestero l: less than 200 mg/dLBorderline High Cholesterol: 200-239 mg/dLHigh Cholesterol: greater than 239 mg/dL LDL Cholesterol Calculated 151(H) <100 mg/dL [facility] Comment:Desirable LDL: less than 100 mg/dLNear Optimal/Above Optimal LDL: 110- 129 mg/dLBorderline High LDL: 130-159 mg/dLHigh LDL: 160-189 mg/dLVery High LDL: greater than or equal to 190 mg/dL HDL Cholesterol 53 >40 mg/dL [facility] Comment:Desirable HDL: great er than 40 mg/dL Note: This HDL assay may give artificially low results in patients with liver disease. Blood Venous blood specimen / Unknown 08/24/2025 1:45 PM EST 08/24/2025 4:14 PM EST Molly Yost MD LAB BLOOD ORDERAB LES Final Result Performing Organization Address City/[facility]/ZIP Co de Phone Number [facility] [address] [place] [phone] * (ABNORMAL) Comprehensive Metabolic Panel (08/24/2025 1:45 PM EST) Sodium 142 135 - 145 mmol/L [facility] Potassium 4.0 3.3 - 5.1 mmol/L [facility] Chloride 106 96 - 108 mmol/L [facility] Carbon Dioxide 28 22 - 29 mmol/L [facility] Anion Gap 12 12 - 20 [facility] Urea Nitrogen (BUN) 17(H) 9 - 16 mg/dL [facility] Creatinine, Serum 0.67 0.5 - 1.4 mg/dL [facility] Estimated Glomerular Filt Rate >60 [facility] Comment:Chronic Kidney Disea se: Estimated GFR < 60 mL/min/1.47c9Cxzjkp Kidney Disease: Estimated GFR < 15 mL/min/1.73m2 Glucose 82 60 - 115 mg/dL [facility] Calcium 9.6 8.4 - 10.2 mg/dL [facility] Bilirubin, Total 0.5 0.0 - 1.0 mg/dL [facility] Aspartate Amino Transferase 29 5 - 31 U/L [facility] Alanine Aminotransferase 23 0 - 31 U/L [facility] Total Protein 7.9 6.5 - 8.0 g/dL [facility] Albumin Level 4.7 3.5 - 5.0 g/dL [facility] Alkaline Phosphatase 58 39 - 117 U/L [facility] Blood Venous blood specimen / Unknown 08/24/2025 1:45 PM EST 08/24/2025 4:14 PM EST us Molly Yost MD LAB BLOOD ORDERAB LES Final Result [facility] [address] [place] [phone] * Cologuard?? colon cancer screening (07/22/2025 10:42 AM EST) Cologuard Result Negative Negative 07/28/20 10:33 PM EST [facility] (CLIA #:[id number]) Comment: The Cologuard (TM) test was performed [...] screened with both Cologuard and colonoscopy. (Edilma Chan et al, N Engl J Med 2014;370(14):1286- 1297) The normal value (reference range) for this assay is negative. COLOGUARD RE-SCREENING RECOMMENDATION: Periodic colorectal cancer screening is an important part of preventive healthcare for asymptomatic individuals at average risk for colorectal cancer. Following a negative Cologuard result, the [place] [employer] and U.S. Multi-Society Task Force screening guidelines recommend a Cologuard re-screening interval of 3 years. References: [place] [employer] Guideline for Colorectal Cancer Screening: https://www.cancer.org/cancer/hklrb-gkguqn-vnuila/tqqdpblda-yhhaoxcgp-wxfovxn/ac s-rec ommendations.html.; Pepe DK, Mauro ZAZUETA, Colin ArmentaK, Colorectal Cancer Screening: Recommendations for Physicians and Patients from the U.S. Multi-Society Task Force on Colorectal Cancer Screening , Am J Gastroenterology 2017; 112:7413-8074. TEST DESCRIPTION: Composite algorithmic analysis of stool [...] screened with both Cologuard and colonoscopy. (Edilma Chan et al, N Engl J Med 2014;370(14):4081-6507.) Cologuard may produce a false negative or false positive result (no colorectal cancer or precancerous polyp present at colonoscopy follow up). A negative Cologuard test result does not guarantee the absence of CRC or advanced adenoma (pre-cancer). The current Cologuard screening interval is every 3 years. ([place] [employer] and U.S. Multi-Society Task Force). Cologuard performance data in a 10,000 patient pivotal study using colonoscopy as the reference method can be accessed at the following location: www.Genomed/results. Additional description of the Cologuard test process, warnings and precautions can be found at www.cologSera Prognosticsrd.com. Stool specimen (specimen) 07/22/2025 10:42 AM EST 07/23/2025 5:39 PM EST us Molly Yost MD LAB MOLECULAR RUFINA GNOSTICS ORDERABLES Final Result [facility] (CLIA #:[id number]) [address] [place] [address], * BI Mammogram Screening Tomosynthesis Bilateral (07/20/2025 4:03 PM EST) Anatomical Region Laterality Modality Breast Bilateral Mammography 07/20/2025 4:03 PM EST Narrative 07/24/2025 8:48 PM EST [facility] [address] [place] [address] Mammography Report Signed Patient: Cindy Mays MR# : [id number] : 1975 Acct:[id number] Age/Sex: 49 / F ADM Date: 07/20/25 Loc: HO.MAMMO Attending Dr: Molly Yost MD Ordering Physician: Molly Narayan MD sults: 1Negative Date of Service: 07/20/25 Follow Up: 1 Year From Orig ina Mammogram Procedure(s): MM tomosynthesis screening BI Accession Number(s): [id number] cc: Molly Narayan MD Reason For Exam: [...] OV> 07/24/252043 DD/ 1603 TD/TT: 07/20/25 1517 Industrial Controls Technician: Procedure Note Donotuseinterpreter, Image - 07/24/2025 [facility] [address] [place] [address] Mammography Report Signed Patient: Misha Mays# : [id number] : 1975Acct:[id number] Age/Sex: 49 / FADM Date: 07/20/25 Loc: HO.MAMMO Attending Dr: Molly Yost MD Ordering Physician: Molly Narayan sults: 1Negative Date of Service: 07/20/25Follow Up: 1 Year From Orig inal Mammogram Procedure(s): MM tomosynthesis screening BI Accession Number(s): [id number] cc: Molly Narayan MD Reason For Exam: [...] by: Marc Shaffer MD 07/24/2025 08:44 PM [facility] Dictated By: Marc Shaffer MD Signed By: <Electronically signed by Marc Shaffer MD in OV> 07/24/252043 DD/ 1603 TD/TT: 07/20/25 1517 Industrial Controls Technician: us Molly Yost MD IMG BI PROCEDURES Final Result * (ABNORMAL) POCT Hgb A1c (07/07/2025 9:50 AM EDT) Hemoglobin A1C 5.8(A) 4.0 - 5.7 % QC Media Lot # [id number] Lot# Expiration Date Blood 07/07/2025 9:50 AM EDT Molly Yost MD POINT OF CARE MIHIR T ENTER/EDIT ORDERABLES Final Result * Hepatitis C Antibody with Reflex to HCV, RNA, Quantitative, Real-Time PCR (01/20/2025 3:12 PM EDT) [facility] Hepatitis C Antibody Nonreactive Nonreactive [facility] Comment:Antibodies to HCV no t detected; does not exclude early acuteHCV infection. Blood Venous blood specimen / Unknown 01/20/2025 3:12 PM EDT 01/20/2025 4:09 PM EDT Molly Yost MD LAB BLOOD ORDERAB LES Final Result [facility] [address] [place] [phone] * HIV-1/2 Antigen and Antibodies, Fourth Generation, with Reflexes (01/20/2025 3:12 PM EDT) [facility] HIV AB/AG Nonreactive Nonreactive [facility] Comment:HIV-1 p24 Ag and/or HIV-1/HIV-2 Ab not detected.A test result that is nonreactive does not exclude thepossibility of exposure to or infection with HIV-1 and/orHIV-2. Nonreactive results in this assay for individualswith prior exposure to HIV-1 and/or HIV-2 may be due toantigen and antibody levels that are below the limit ofdetection of this assay.The [employer] HIV Ag/Ab Combo assay result andsupplemental assay results should be interpreted inconjunction with the patient's clinical presentation,history and other laboratory results. If the results areinconsistent with clinical evidence, additional testing issuggested to confirm the result. Blood Venous blood specimen / Unknown 01/20/2025 3:12 PM EDT 01/20/2025 4:09 PM EDT us Molly Yost MD LAB BLOOD ORDERAB LES Final Result Performing Organization Address [facility]/ZIP Co de Phone Number [facility] [address] [place] [phone] * HPV mRNA E6/E7 w/Reflex to HPV Genotypes 16, 18/45 (06/26/2023 11:25 AM EDT) HPV nRNA E6/E7 Not Detected Not Detected [facility] Comment:Methodology: Transcr iption-Mediated AmplificationThis assay detects E6/E7 viral messenger RNA (mRNA) from 14high-risk HPV types (16,18,31,33,35,39,45,51,52,56,58,59,66,68).Cervical sources are required for HPV testing.If a vaginal source from a patient who has had atotal hysterectomy with removal of cervix wassubmitted, please contact the testing laboratoryfor alternative testing options.For additional information, please refer tohttp://education.Motilo/faq/ENN760u9(This link if provided for information/educational purposes only.)THIS TEST WAS PERFORMED AT:[employer] [place] [phone] WALLACE MD HPV mRNA E6/E7 [facility] HPV 16 RNA [facility] HPV 18/45 RNA [facility] 06/26/2023 11:2 5 AM EDT 06/27/2023 7:20 AM EDT us Digoo Corrales CNM LAB CYTOLOGY ORDERABLES F inal Result [facility] [address] [place] [phone] * Pap Smear (06/26/2023 11:25 AM EDT) 06/26/2023 11:2 5 AM EDT 06/27/2023 7:20 AM EDT [facility] - 07/01/2023 8:45 AM EDT ----- ------- Name: Cindy Mays Age/Sex: 47/F : 1975 Unit#: [id number] Attend Dr: DIOGO CORRALES CNM Re06/26/23 Status: DEP [facility]: ----- ------- SPEC : [id number] RECD: 06/27/23 STATUS: SHITAL ROTH NUM: [id number] DEONTE: 06/26/[address] [facility] [address]: DIOGO CORRALES CNM ENTERED: 06/27/23 SP TYPE: Pap Smr [facility] DR: ORDERED: Pap Smear Interpretation Satisfactory for evaluation. Mild inflammation. Negative for intraepithelial lesion or malignancy. HPV mRNA E6/E7: NOT DETECTED This assay detects E6/E7 viral messenger RNA (mRNA) from 14 high-risk HPV types (16, 18, 31, 33, 35, 39, 45, 51, 52, 56, 58, 59, 66, 68) HPV testing performed by [employer], [place], [place]. See reference laboratory pion of the EMR for entire report. Clinical Information LMP: Unknown date Previous PAP test: 2019, WNL Material Received ThinPrep-Vaginal/Cervical ----- ------- Signed (signature on file) TAMEKA Oreilly ([facility]) 07/01/23 0845 ----- ------- END OF REPORT Diogo Corrales [facility] LAB CYTOLOGY ORDERABLES F inal Result [facility] [address] [place] [address] [phone] from Last 3 Months or Most Recently Relevant to Health Maintenance Insurance Care Teams Certified Hyperbaric Technician Relationship Specialty Start Date End Date Molly Narayan MD [address] [place] [address] PCP - General Internal Medicine 01/02/23 Carlee Thomas RN [address] [place] [phone] Registered Nurse Family Medicine 07/07/25 Freda Saldivar 07/07/25
--- OUTSIDE RECORDS SUMMARY | 2025-09-08 11:21 | XMS_ITS | Encounter Summary ---
Author Organization [employer] Address [address] [place] [address] 7 [place] [address] Care Team Providers Care Outdoor Adventure Guides Name Role Phone Molly Narayan MD Primary Care Pro vider Carlee Thomas RN Unavailable [phone] Freda Saldivar Unavailable Reason for Visit * Reason Comments Med Refill Encounter Details Date Type Department Care Team (Late st Contact Info) Description 10/25/[address] [facility] [address] [place], [place] [phone] Molly Narayan MD 230 [place], [place] [phone] Social History Tobacco Use Types Packs/Day Years [...] 11:30 AM EST Office Visit [facility] [address] [place] [phone] Molly Narayan MD [address] [place] [phone] documented as of this encounter Visit Diagnoses Not on filedocumented in this encounter Additional Health Concerns Assessment Noted Time PHQ-9 Depression Total Score: 12 023 11:43 AM EDT documented as of this encounter Care Teams Outdoor Adventure Guides Relationship Specialty Start Date End Date Molly Narayan MD [address] [place] [phone] PCP - General Internal Medicine 01/02/23 Carlee Thomas RN [address] [place] [phone] Registered Nurse Family Medicine 07/07/25 Freda Saldivar 07/07/25 documented as of this encounter
--- OUTSIDE RECORDS SUMMARY | 2025-09-08 11:21 | XMS_ITS | Encounter Summary ---
Author Organization [employer] Address [address] [place] [address] 7t [place] [address] Care Team Providers Care Procurement Director Name Role Phone Al Canela MILEY Primary Care Provider Unavail able Molly Narayan MD Primary Care Pro vider Carlee Thomas RN Unavailable [phone] Freda Saldivar Unavailable Reason for Visit * Reason Comments Med Refill Encounter Details Date Type Department Care Team (Late Contact Info) Description 12/28/2022 Refill [facility] 230 [place], [place] [phone] Name, MD Enrico [address] [place], [place] [phone] Subclinical hypothyroidism Social History Tobacco Use Types [...] EST Office Visit [facility] [address] [place] [address] Molly aNrayan MD [address] [place], [place] [phone] documented as of this encounter Visit Diagnoses Diagnosis Subclinical hypothyroidism Other specified acquired hypothyroidism documented in this encounter Care Teams Procurement Director Relationship Specialty Start Date End Date Al Canela AGNP PCP - General Family Medicine 09/14/22 01/01/23 Molly Narayan MD [address] [place] [phone] PCP - General Internal Medicine 01/02/23 Carlee Thomas, TREY [address] [place] [phone] Registered Nurse Family Medicine 07/07/25 Freda Saldivar 07/07/25 documented as of this encounter
--- OUTSIDE RECORDS SUMMARY | 2025-09-08 11:21 | XMS_ITS | Encounter Summary ---
Author Organization [employer] Address [address] [place] [address] 7 [place] [address] Care Team Providers Care Fretted Instrument Repairer Name Role Phone Molly Narayan MD Primary Care Pro vider Carlee Thomas RN Unavailable [phone] Freda Saldivar Unavailable Reason for Visit * Reason Comments Med Refill Encounter Details Date Type Department Care Team (Late st Contact Info) Description 07/03/2023 Refill [facility] [address] [place], [place] [phone] Molly Narayan MD 230 [place], [place] [phone] Social History Tobacco Use Types Packs/Day Years Used Date Smoking Tobacco: Never Passive Smoke Exposure: Never Smokeless Tobacco: Never Alcohol Use Standard Drinks/Week Comments Not Currently 0 (1 standard drink = 0.6 oz pur e alcohol) Depression Answer Date Recorded Patient Health Questionnaire-9 Score 12 04/10/2023 Housing Stability Answer Date Recorded What is your housing situation today? I have amy tiraod 07/01/[address] you li [...] 11:30 AM EST Office Visit [facility] [address] [place] [address] Molly Narayan MD [address] [place] [address] documented as of this encounter Visit Diagnoses Not on filedocumented in this encounter Additional Health Concerns Assessment Noted Time PHQ-9 Depression Total Score: 12 023 11:43 AM EDT documented as of this encounter Care Teams Fretted Instrument Repairer Relationship Specialty Start Date End Date Molly Narayan MD [address] [place] [phone] PCP - General Internal Medicine 01/02/23 Carlee Thomas RN [address] [place] [address] [phone] Registered Nurse Family Medicine 07/07/25 Freda Saldivar 07/07/25 documented as of this encounter
--- OUTSIDE RECORDS SUMMARY | 2025-09-08 11:21 | XMS_ITS ---
Author Organization [employer] Address [address] [place] [address] 7 [place] [address] Care Team Providers Care Park Warden Name Role Phone Molly Narayan MD Primary Care Pro vider Carlee Thomas RN Unavailable [phone] Freda Saldivar Unavailable CM Complex Status:Outreach In Progress (Enrolling) Start date:07/07/2025 Enrollment reason:ADT Feed Overview Provider Referral- pt with poor memory needs helps w appts Case Team Name Relationship Phone Carlee Thomas RN(Responsible Staff) Registered Nurse Continued Care and Services Coordination
--- OUTSIDE RECORDS SUMMARY | 2025-09-08 11:21 | XMS_ITS | Encounter Summary ---
Author Organization [employer] Address [address] [facility] 7t [place] [address] Care Team Providers Care Cash Posting Representative Name Role Phone Al Canela Primary Care Provider Unavail able Molly Narayan MD Primary Care Pro vider Carlee Thomas RN Unavailable [phone] Freda Saldivar Unavailable Reason for Visit * Reason Onset Date Comments triage 12/28/2022 Encounter Details Date Type Department Care Team (Late st Contact Info) Description 12/28/2022 Telephone [facility] 230 [place], [place] [phone] Al Canela AGNP triage Social History Tobacco [...] 12/28/2022 1:11 PM EDT Triage call with [employer] Manager [place] [id number] Pt reports waking up last 2 nights [...] area. Pt is advised to come to [facility] to be seen today and [...] AM EST Office Visit [facility] 230 [place], [place] [phone] Molly Narayan MD [address] [place] [phone] documented as of this encounter Visit Diagnoses Not on filedocumented in this encounter Care Teams Cash Posting Representative Relationship Specialty Start Date End Date Al Canela AGNP PCP - General Family Medicine 09/14/22 01/01/23 Molly Narayan MD [address] [place] [address] [phone] PCP - General Internal Medicine 01/02/23 Carlee Thomas, TREY [address] [place] [address] [phone] Registered Nurse Family Medicine 07/07/25 Freda Saldivar 07/07/25 documented as of this encounter
--- OUTSIDE RECORDS SUMMARY | 2025-09-08 11:21 | XMS_ITS ---
Author Organization [employer] Address [address] [place] [address] 7 [place] [address] Care Team Providers Care Materials Research Engineer Name Role Phone Molly Narayan MD Primary Care Pro vider Carlee Thomas RN Unavailable [phone] Freda Saldivar Unavailable CHW Complex Status:Outreach In Progress (Enrolling) Start date:07/07/2025 Enrollment reason:Referred by provider Overview Provider Referral- pt with poor memory needs helps w appts. Please outreach to patient. Case Team Name Relationship Phone Freda Saldivar(Responsible Staff) Continued Care and Services Coordination
--- OUTSIDE RECORDS SUMMARY | 2025-09-08 11:21 | XMS_ITS | Encounter Summary ---
Author Organization [employer] Address 75 [facility] 7t [place] [address] Care Team Providers Care Polarity Tester Name Role Phone Al Canela Primary Care Provider Unavail able Molly Narayan MD Primary Care Pro vider Carlee Thomas RN Unavailable [phone] Freda Saldivar Unavailable Reason for Visit * Reason Onset Date Comments Med Refill 12/28/2022 Encounter Details Date Type Department Care Team (Late st Contact Info) Description 12/28/2022 Telephone [facility]INE [address] [place], [place] [phone] Al Canela AGNP Med Refill Social History [...] Description 11/12/2025 11:30 AM EST Office Visit [facility] [address] [place], [place] [phone] Molly Narayan MD [address] [place] [address] [phone] documented as of this encounter Visit Diagnoses Not on filedocumented in this encounter Care Teams Polarity Tester Relationship Specialty Start Date End Date Al Canela AGNP PCP - General Family Medicine 09/14/22 01/01/23 Molly Narayan MD [address] [place] [address] [phone] PCP - General Internal Medicine 01/02/23 Carlee Thomas, TREY [address] [place] [address] [phone] Registered Nurse Family Medicine 07/07/25 Freda Saldivar 07/07/25 documented as of this encounter
--- OUTSIDE RECORDS SUMMARY | 2025-09-08 11:21 | XMS_ITS | Encounter Summary ---
Author Organization [employer] Address [address] [facility] 7t [place] [address] Care Team Providers Care Orthodontic Band Maker Name Role Phone Molly Narayan MD Primary Care Pro vider Carlee Thomas RN Unavailable [phone] Freda Saldivar Unavailable Encounter Details Date Type Department Care Team (Latest Contact Info) Description 09/07/2025 Travel Social History Tobacco Use Types Packs/Day [...] Description 11/12/2025 11:30 AM EST Office Visit [facility] [address] [place] [phone] Molly Narayan MD [address] [place] [phone] documented as of this encounter Visit Diagnoses Not on filedocumented in this encounter Additional Health Concerns Assessment Noted Time PHQ-9 Depression Total Score: 16 024 11:50 AM EDT documented as of this encounter Care Teams Orthodontic Band Maker Relationship Specialty Start Date End Date Molly Narayan MD [address] [place] [address] [phone] PCP - General Internal Medicine 01/02/23 Carlee Thomas, TREY [address] [place] [phone] Registered Nurse Family Medicine 07/07/25 Freda Saldivar 07/07/25 documented as of this encounter
--- OUTSIDE RECORDS SUMMARY | 2025-09-08 11:21 | XMS_ITS | Encounter Summary ---
Author Organization [employer] Address [address] [facility] 7t [place] [address] Care Team Providers Care Rewinder Name Role Phone Molly Narayan MD Primary Care Pro vider Carlee Thomas RN Unavailable [phone] Freda Saldivar Unavailable Reason for Visit * Reason Comments Med Refill Encounter Details Date Type Department Care Team (Late st Contact Info) Description 01/11/2025 Refill [facility] 230 [place], [place] [phone] Renee Patel MD 230 [place], [place] [phone] Social History Tobacco Use Types Packs/Day Years [...] Description 11/12/2025 11:30 AM EST Office Visit [facility] [address] [place] [address] [phone] Molly Narayan MD [address] [place] [phone] documented as of this encounter Visit Diagnoses Not on filedocumented in this encounter Additional Health Concerns Assessment Noted Time PHQ-9 Depression Total Score: 16 024 11:50 AM EDT documented as of this encounter Care Teams Rewinder Relationship Specialty Start Date End Date Molly Narayan MD [address] [place] [address] [phone] PCP - General Internal Medicine 01/02/23 Carlee Thomas, TREY [address] [place] [address] [phone] Registered Nurse Family Medicine 07/07/25 Freda Saldivar 07/07/25 documented as of this encounter
--- OUTSIDE RECORDS SUMMARY | 2025-09-08 11:21 | XMS_ITS | Encounter Summary ---
Author Organization [employer] Address [address] [facility] 7t [place] [address] Care Team Providers Care Agricultural Services Director Name Role Phone Al Canela Primary Care Provider Unavail able Molly Narayan MD Primary Care Pro vider Carlee Thomas RN Unavailable [phone] Freda Saldivar Unavailable Reason for Visit * Reason Onset Date Comments triage 10/05/2022 Encounter Details Date Type Department Care Team (Late st Contact Info) Description 10/05/2022 Telephone [facility] 230 [place], [place] [phone] Al Canela AGNP triage Social History Tobacco [...] PM EST Attempted to contact Pt with [employer]er ID [id number], left message to call [facility] * Telephone Encounter - Aysharadhavalentina Pederson Tyrone [...] accepted this outcome Please contact pt at [phone] Armenian Speaker. documented in this encounter Plan of Treatment Upcoming Encounters Date Type Department Care Team (Late st Contact Info) Description 11/12/2025 11:30 AM EST Office Visit [facility] [address] [place] [address] [phone] Molly Narayan MD [address] [place] [phone] documented as of this encounter Visit Diagnoses Not on filedocumented in this encounter Care Teams Agricultural Services Director Relationship Specialty Start Date End Date Al Canela AGNP PCP - General Family Medicine 09/14/22 01/01/23 Molly Narayan MD [address] [place] [address] [phone] PCP - General Internal Medicine 01/02/23 Carlee Thomas RN [address] [place] [address] [phone] Registered Nurse Family Medicine 07/07/25 Freda Saldivar 07/07/25 documented as of this encounter
--- OUTSIDE RECORDS SUMMARY | 2025-09-08 11:21 | XMS_ITS | Encounter Summary ---
Author Organization [email or web address] Address [address] [place] [address] 7 [place] [address] Care Team Providers Care Digital Data Analyst Name Role Phone Molly Narayan MD Primary Care Pro vider Carlee Thomas RN Unavailable [phone] Freda Saldivar Unavailable Reason for Visit * Reason Comments Med Refill Encounter Details Date Type Department Care Team (Late st Contact Info) Description 09/23/2023 Refill [facility] 230 [place], [place] [phone] Molly Narayan MD 230 [place], [place] [phone] Social History Tobacco Use Types Packs/Day Years [...] Description 11/12/2025 11:30 AM EST Office Visit [facility] [address] [place] [phone] Molly Narayan MD [address] [place] [phone] documented as of this encounter Visit Diagnoses Not on filedocumented in this encounter Additional Health Concerns Assessment Noted Time PHQ-9 Depression Total Score: 12 023 11:43 AM EDT documented as of this encounter Care Teams Digital Data Analyst Relationship Specialty Start Date End Date Molly Narayan MD [address] [place] [phone] PCP - General Internal Medicine 01/02/23 Carlee Thomas RN [address] [place] [phone] Registered Nurse Family Medicine 07/07/25 Freda Saldivar 07/07/25 documented as of this encounter
== END 2025-09-08 11:17 | disposition home or self-care (01) ==
LOC: HO.LNP 11:16
PROVIDERS: Visit Provider Internal Medicine
DX: R68.89 Other general symptoms and signs (principal)
CPT/HCPCS: 87070